=== PATIENT | male | born 1970 | race Caucasian/White ===

== ENCOUNTER 2022-12-13 22:04 | Emergency (ER) | payer OTHER, SELFPAY ==
[2022-12-13 22:06] VITALS: BP 148/92; PULSE 76; RESP 18; TEMP 36.6; O2SAT 97; BMI 29.0
--- NOTE | 2022-12-13 22:17 | PC.NURSE ---
patient states yesterday he woke up with some right sided low back discomfort and at the time pain was bearable so he went to work. states while at work pain became worse. then today he was at home and pain began to travel down his right leg into thigh. states he has a history of sciatica and this feels similar to previous episodes. denies any injury or trauma to area. tried heat, OTC cream, and tylenol at home without relief. pain worsens with movement.
--- NOTE | 2022-12-13 22:31 | ED_ITS ---
HPI - Back Pain/Injury General Chief Complaint: Back Pain/Injury Stated Complaint: LOWER BACK, EXTREMITY PAIN Time Seen by Provider: 12/13/22 22:18 Source: patient Mode of arrival: walk-in Limitations: no limitations History of Present Illness HPI Narrative: presents complaining of right lower back pain radiating into his right hamstring thigh. No leg weakness. No loss of control or bowel or bladder. No urinary s ymptoms or fever. difficult to find a comfortable position MD elicited complaint: Reports back pain Related Data Home Medications Medication Instructions Recorded Confirmed levothyroxine 200 mcg tablet 200 mcg PO DAILY 12/13/22 12/13/22 topiramate 100 mg tablet 100 mg PO DAILY 12/13/22 12/13/22 Allergies Allergy/AdvReac Type Severity Reaction Status Date / Time No Known Drug Allergies Allergy Verified 12/13/22 22:12 Review of Systems ROS Status of ROS 10 or more systems reviewed and unremarkable except as noted in history and below Exam Constitutional Vital Signs, click to edit/add: Last Vital Signs Temp 97.8 F 12/13/22 22:06 Pulse 70 12/14/22 00:02 Resp 16 12/13/22 23:23 BP 148/92 H 12/13/22 22:06 Pulse Ox 99 12/14/22 00:02 O2 Del Method Room Air 12/13/22 22:06 Common normals: average body habitus, oriented x3, healthy appearing, alert and well nourished [facility] [place] Common normals: normocephalic and head/scalp atraumatic Eye Common normals: EOMs intact bilaterally, conjunctivae normal and no scleral icterus Respiratory Common normals: normal respiratory effort, no retractions, no use of accessory muscles and clear to auscultation bilaterally Cardio Common normals: regular rate, regular rhythm, S1 normal heart sound and S2 normal heart sound Back & Pelvis Other: tenderness along the right side of his lower lumbar spine. L5. The spine itself is nontender Neuro Common normals: oriented x3, CN's II-XII intact bilaterally, moves all extremities, no focal motor deficits and no sensory deficits noted Psych Appearance: grossly normal Course Vital Signs Vital signs: Vital Signs Temperature 97.8 F 12/13/22 22:06 Pulse Rate 76 12/13/22 22:06 Respiratory Rate 18 12/13/22 22:06 Blood Pressure 148/92 H 12/13/22 22:06 Pulse Oximetry 97 12/13/22 22:06 Oxygen Delivery Method Room Air 12/13/22 22:06 Temperature 97.8 F 12/13/22 22:06 Pulse Rate 70 12/14/22 00:02 Respiratory Rate 16 12/13/22 23:23 Blood Pressure 148/92 H 12/13/22 22:06 Pulse Oximetry 99 12/14/22 00:02 Oxygen Delivery Method Room Air 12/13/22 22:06 MDM - Back Pain/Injury MDM Narrative Medical decision making narrative: patient presents with right lower back pain radiating into his thigh. No lower ext. weakness. Inflammatory markers are normal. no fever. Medicated in the department with solumedrol and fentanyl and pain improved prior to discharge. Discharge home with a prescription of prednisone and advised to follow up with his doctor Lab Data Labs: Lab Results 12/13/22 Range/Units 22:46 WBC 11.8 H (4.0-11.0) 10^3/uL RBC 5.00 (4.70-6.10) 10^6/uL Hgb 14.0 (14.0-18.0) g/dL Hct 42.2 (42.0-54.0) % MCV 84.4 (80.0-94.0) fL MCH 28.0 (25.9-34.0) pg MCHC 33.2 (29.9-35.2) g/dL RDW 13.8 (11.0-15.0) % Plt Count 271 (150-450) 10^3/uL MPV 10.2 (9.5-13.5) fL Neut % (Auto) 62.6 (43.0-75.0) % Lymph % (Auto) 25.8 (20.5-60.0) % [place] % (Auto) 7.5 (1.7-12.0) % Eos % (Auto) 3.0 (0.9-7.0) % Baso % (Auto) 0.7 (0.2-2.0) % Neut # (Auto) 7.4 H (1.4-6.5) 10^3/uL Lymph # (Auto) 3.1 (1.2-3.8) 10^3/uL [place] # (Auto) 0.9 H (0.3-0.8) 10^3/uL Eos # (Auto) 0.4 (0.0-0.7) 10^3/uL Baso # (Auto) 0.1 (0.0-0.1) 10^3/uL Abs Immat Gran (auto) 0.05 H (0.00-0.03) 10^3/uL Imm/Tot Granulo (auto) 0.4 (0.0-0.5) % ESR 15 (<=20) mm/hr Sodium 141 (136-145) mmol/L Potassium 3.7 (3.5-5.1) mmol/L Chloride 107 (98-107) mmol/L Carbon Dioxide 22.7 (21.0-32.0) mmol/L Anion Gap 15.0 BUN 18.0 (7.0-18.0) mg/dL Creatinine 1.13 (0.70-1.30) mg/dL Est GFR ( Amer) >60 (>=60) Est GFR (Non-Af Amer) >60 (>=60) BUN/Creatinine Ratio 15.9 Glucose 103 (74-106) mg/dL Calcium 8.6 (8.5-10.1) mg/dL C-Reactive Protein <1.0 (<=1.0) mg/dL Discharge Plan Discharge Chief Complaint: Back Pain/Injury Clinical Impression: Sciatic nerve pain Prescriptions / Home Meds: No Action topiramate 100 mg tablet 100 mg PO DAILY levothyroxine 200 mcg tablet 200 mcg PO DAILY Instructions: Sciatica (ED) Additional Instructions: follow up with your family doctor in the next couple of days Stand Alone Forms: Portal Instructions Referrals: SALMA MOHR [Primary Care Provider] - 1 week
[2022-12-13] MEDS: METHYLPREDNISOLONE SOD SUCC PF 125 MG/2 ML VIAL IVP (22:49)
[2022-12-13 22:50] VITALS: PULSE 72; O2SAT 97
[2022-12-13] MEDS: FENTANYL CITRATE/PF 100 MCG/2 ML VIAL 50 MCG IV (22:50)
[2022-12-13 22:55] LABS: Basophils Absolute Auto 0.1 10^3/uL (0.0-0.1); Basophils Percent Auto 0.7 % (0.2-2.0); Eosinophils Absolute Auto 0.4 10^3/uL (0.0-0.7); Hematocrit 42.2 % (42.0-54.0); Immature Granulocytes Abs Auto 0.05 10^3/uL (0.00-0.03); Immature Granulocytes Pct Auto 0.4 % (0.0-0.5); Lymphocytes Absolute Auto 3.1 10^3/uL (1.2-3.8); Lymphocytes Percent Auto 25.8 % (20.5-60.0); Mean Corpuscular HGB Conc 33.2 g/dL (29.9-35.2); Mean Corpuscular Volume 84.4 fL (80.0-94.0); Mean Platelet Volume 10.2 fL (9.5-13.5); Monocytes Absolute Auto 0.9 10^3/uL (0.3-0.8); Monocytes Percent Auto 7.5 % (1.7-12.0); Neutrophils Absolute Auto 7.4 10^3/uL (1.4-6.5); Neutrophils Percent Auto 62.6 % (43.0-75.0); Platelet Count 271 10^3/uL (150-450); Red Cell Distribution Width 13.8 % (11.0-15.0); White Blood Count 11.8 10^3/uL (4.0-11.0)
[2022-12-13 23:04] LABS: Erythrocyte Sedimentation Rate 15 mm/hr (<=20)
[2022-12-13 23:05] LABS: BUN Creatinine Ratio 15.9; C Reactive Protein <1.0 mg/dL (<=1.0); Calcium 8.6 mg/dL (8.5-10.1); Carbon Dioxide 22.7 mmol/L (21.0-32.0); Chloride 107 mmol/L (98-107); Estimated GFR (African America >60 (>=60); Estimated GFR (Non-African Ame >60 (>=60); Glucose 103 mg/dL (74-106); Potassium 3.7 mmol/L (3.5-5.1); Sodium 141 mmol/L (136-145)
[2022-12-13 23:23] VITALS: PULSE 62; RESP 16; O2SAT 96
[2022-12-14 00:02] VITALS: PULSE 70; O2SAT 99
[2022-12-14] MEDS: FENTANYL CITRATE/PF 100 MCG/2 ML VIAL 50 MCG IV (00:21)
[2022-12-14] MEDS: HYDROCODONE/ACETAMINOPHEN 5-325 MG TABLET 4 TAB PO (01:26)
[2022-12-14 01:32] VITALS: PULSE 70; RESP 16; O2SAT 98
== END 2022-12-14 01:34 | disposition home or self-care (01) ==
PROVIDERS: Emergency Provider Internal Medicine; PCP Family Medicine
DX: M54.41 Lumbago with sciatica, right side (principal); Z79.899 Other long term (current) drug therapy; Z79.890 Hormone replacement therapy
CPT/HCPCS: 36415; 80048; 85025; 85652; 86140; 96374; 96375; 96376; 99284; J2930

== ENCOUNTER 2023-03-10 10:54 | Outpatient (OUT) | payer OTHER, SELFPAY ==
--- NOTE | 2023-03-10 | US_ITS ---
The [place] [id number] Patient Name: LUIS OSPINA MRN: [id number] date: 1970 Sex: M Assigned Patient Location: US Current Patient Location: Accession/Order Number: [id number] Exam Date: 03/10/2023 11:15 Report Date: 03/11/2023 17:26 At the request of: SHAIKH LOLI Procedure: US scrotum US scrotum, 03/10/2023 11:15 AM EDT INDICATION: LEFT INGUINAL HERNIA KN0.90 COMPARISON: There is no appropriate prior study for comparison. FINDINGS: The testicles are normal in size and echotexture for age measuring 4.8 x 2.3 x 3.3 cm on the right and 4 x 2.3 x 3 cm on the left. No abnormal intratesticular hypervascular lesion is noted. Normal color and spectral Doppler in arteries and veins are noted. Mild right hydrocele is noted. Left epididymal cyst within the head of epididymis is noted measuring 1.1 x 0.9 x 0.9 cm. No abnormality of the right epididymis. There is a reversible left inguinal hernia measuring approximately 3.4 x 1 x 1.8 cm. There is enlargement of the inguinal hernia containing mesenteric fat and possible bowel with Valsalva maneuver. No incarceration is noted. US/US scrotum IMPRESSION: [Left epididymal cyst. Otherwise, no abnormality of testicles is noted. Reversible left inguinal hernia containing mesenteric fat and possible bowel with Valsalva maneuver. Electronically authenticated by: KASIE GRIFFIN Date: 03/11/2023 17:26
== END 2023-03-10 10:55 | disposition home or self-care (01) ==
LOC: US 10:54
PROVIDERS: PCP Family Medicine; Visit Provider Internal Medicine
DX: K40.90 Unilateral inguinal hernia, without obstruction or gangrene, not specified as recurrent (principal); N50.3 Cyst of epididymis
CPT/HCPCS: 76870

== ENCOUNTER 2023-03-25 16:22 | Emergency (ER) | payer OTHER, SELFPAY ==
[2023-03-25] VITALS (24 sets, daily range): BP systolic 101–154; BP diastolic 73–110; PULSE 62–87; RESP 9–25; TEMP 36.6; O2SAT 94–100; BMI 32.9
--- NOTE | 2023-03-25 16:32 | CT_ITS ---
The [address] [address] Patient Name: LUIS OSPINA MRN: [id number] date: 1970 Sex: M Assigned Patient Location: ED.MAIN Current Patient Location: Accession/Order Number: [id number] Exam Date: 03/25/2023 16:45 Report Date: 03/25/2023 17:41 At the request of: EVGENY DONNELLY Procedure: CT stroke head/brain wo con EXAMINATION: CT stroke head/brain wo con TECHNIQUE: Axial CT images were obtained through the brain. Sagittal and coronal reformatted images were also obtained. Dose reduction techniques were achieved by using automated exposure control and/or adjustment of mA and/or kV according to patient size and/or use of iterative reconstruction technique. HISTORY: left arm feels cold COMPARISON: MRI 07/06/2020 FINDINGS: Intracranial Bleed: No evidence for acute intracranial bleed. Intracranial Mass: No evidence for mass lesion. No mass effect or midline shift. Extra-axial spaces: The ventricular system is normal caliber. White/Lr Matter: No acute cortical infarct. No acute white matter abnormality. There is severe focal mineralization within the basal ganglia bilaterally. Heterogeneous high attenuation within the left frontal white matter also likely relates to abnormal mineralization. Chronic findings from lesion medially within the left occipital lobe. Skull/Scalp: No evidence for skull fracture or lesion. Orbits and sinuses: The orbits appear unremarkable. The visualized paranasal sinuses are clear. CT/CT stroke head/brain wo con IMPRESSION: No acute intracranial pathology. Electronically authenticated by: ARACELI HAYNES Date: 03/25/2023 17:41
--- NOTE | 2023-03-25 16:33 | CT_ITS ---
The [address] [address] Patient Name: LUIS OSPINA MRN: [id number] date: 1970 Sex: M Assigned Patient Location: ER Current Patient Location: ER Accession/Order Number: [id number] Exam Date: 03/25/2023 16:45 Report Date: 03/25/2023 17:17 At the request of: EVGENY DONNELLY Procedure: CT cervical spine wo con EXAM: CT cervical spine wo con HISTORY: left arm feels cold COMPARISON: None. TECHNIQUE: Axial CT imaging is performed. Sagittal and coronal reformatted/reconstructed sequences were additionally performed. FINDINGS: Age-indeterminate straightening of the normal cervical lordosis from the skull base through C5. Vertebral body heights and alignments exhibit no fracture or listhesis. The dens and lateral masses of C1 are symmetric. Multilevel intervertebral disc space narrowing, endplate, uncovertebral and facet arthrosis, most pronounced at C5-C6. No prevertebral soft tissue edema. The visualized osseous skull base, mastoid air cells, airway, thoracic inlet and pulmonary apices exhibit no gross acute abnormality CT/CT cervical spine wo con IMPRESSION: Age-indeterminate straightening of the upper cervical lordosis. Electronically authenticated by: FAROOQ CASTELLON Date: 03/25/2023 17:17
--- NOTE | 2023-03-25 16:37 | ECG_ITS ---
The [facility] Test Date: 2023-03-25 Pat Name: LUIS OSPINA Department: Room: - Gender: Male [employer]: : 1970 Requested By: SHAIKH LOLI Order Number: [id number] Reading MD: JOE DRISCOLL Measurements Intervals [place] Rate: 71 P: 69 AR: 174 QRS: 61 QRSD: 114 T: 51 QT: 384 QTc: 406 Interpretive Statements 1100 Sinus rhythm 2320 Nonspecific intraventricular conduction delay 7300 Indeterminate axis 9130 borderline ECG No previous ECG available for comparison Electronically Signed On 03-27-2023 7:06:44 EST by JOE DRISCOLL
--- NOTE | 2023-03-25 16:38 | XR_ITS ---
The [place] [id number] Patient Name: LUIS OSPINA MRN: [id number] date: 1970 Sex: M Assigned Patient Location: ER Current Patient Location: ER Accession/Order Number: [id number] Exam Date: 03/25/2023 16:42 Report Date: 03/25/2023 17:14 At the request of: EVGENY DONNELLY Procedure: XR chest 1V EXAMINATION: XR chest 1V HISTORY: Left arm feels cold COMPARISON: None. TECHNIQUE: Portable chest FINDINGS: The lung parenchyma is free of consolidation or infiltrate. No pneumothorax or pleural effusion. The cardiac, mediastinal and hilar contours are normal. The visualized osseous structures exhibit no gross abnormality. XR/XR chest 1V IMPRESSION: No acute cardiopulmonary abnormality. Electronically authenticated by: FAROOQ CASTELLON Date: 03/25/2023 17:14
--- NOTE | 2023-03-25 16:39 | ED.GENADUL1 ---
HPI - General Adult General Chief complaint: Neuro Symptoms/Deficit Stated complaint: L SIDE PAIN Time Seen by Provider: 03/25/23 16:27 Source: patient Limitations: no limitations History of Present Illness HPI narrative: 53-year-old male presents because his left arm feels cold. He was sitting drinking coffee three hours ago when this started. It has been continuous since it started. He thought he felt some symptoms in his left leg but doesn't have them now and he is not certain that he ever had symptoms in the left leg. No headache or weakness in his arm. No recent unusual activity. No chest pain or shoortness of breath. Related Data Home Medications Medication Instructions Recorded Confirmed levothyroxine 200 mcg tablet 200 mcg PO DAILY 12/13/22 03/25/23 topiramate 100 mg tablet 100 mg PO DAILY 12/13/22 03/25/23 Allergies Allergy/AdvReac Type Severity Reaction Status Date / Time No Known Drug Allergies Allergy Verified 12/13/22 22:12 Review of Systems ROS Narrative A ten point review of systems is negative except as noted above. Exam Narrative Exam Narrative: Nurses note and vital signs reviewed and patient is not hypoxic. General: The patient appears well and in no apparent distress. Patient is resting comfortably on cart. Skin: Warm, dry, no pallor noted. There is no rash noted. Head: Normocephalic, atraumatic Eye: Normal conjunctiva, no drainage Ears, Nose, Mouth, and Throat: oral mucosa is moist. Nares patent. Cardiovascular: Regular Rate and Rhythm Respiratory: Patient is in no distress, no accessory muscle use, lungs are clear to auscultation, no wheezing, rales or rhonchi Back: non-tender GI: Normal bowel sounds, no tenderness to palpation, no masses appreciated. No rebound, guarding, or rigidity noted. Musculoskeletal: The patient has no evidence of calf tenderness, no pitting edema, symmetrical pulses noted bilaterally Neurological: A&O x4, normal speech; cranial nerves II through XII are intact; upper and lower extremity strength is five out five and symmetric including hand grasp, biceps, and triceps strength. Sensation is intact on physical examination, symmetric in his hands and forearms. It is no skin discoloration or coolness sensation to his arms. Radial pulses are 2+ bilaterally. Psychiatric: Cooperative NIH score is zero Constitutional Vital Signs, click to edit/add: Last Vital Signs Temp 97.8 F 03/25/23 16:33 Pulse 63 03/25/23 18:20 Resp 14 03/25/23 18:20 BP 101/73 03/25/23 18:00 Pulse Ox 99 03/25/23 18:20 Course Vital Signs Vital signs: Vital Signs Pulse Rate 78 03/25/23 16:31 Respiratory Rate 25 H 03/25/23 16:31 Pulse Oximetry 99 03/25/23 16:31 Temperature 97.8 F 03/25/23 16:33 Pulse Rate 63 03/25/23 18:20 Respiratory Rate 14 03/25/23 18:20 Blood Pressure 101/73 03/25/23 18:00 Pulse Oximetry 99 03/25/23 18:20 Medical Decision Making MDM Narrative Medical decision making narrative: CTs and CTAs are essentially negative. The possibility of CVA cannot be ruled out. The patient is not a TPA candidate. His NIH score is zero. the patient is signed out to Dr. Moore at change of shift. Differential Diagnosis Differential Diagnosis: cervical radiculopathy, CVA Lab Data Lab results reviewed: Yes I reviewed the patient's lab results Labs: Lab Results 03/25/23 Range/Units 16:35 WBC 12.9 H (4.0-11.0) 10^3/uL RBC 5.09 (4.70-6.10) 10^6/uL Hgb 14.6 (14.0-18.0) g/dL Hct 44.7 (42.0-54.0) % MCV 87.8 (80.0-94.0) fL MCH 28.7 (25.9-34.0) pg MCHC 32.7 (29.9-35.2) g/dL RDW 13.1 (11.0-15.0) % Plt Count 252 (150-450) 10^3/uL MPV 10.6 (9.5-13.5) fL Neut % (Auto) 67.2 (43.0-75.0) % Lymph % (Auto) 22.6 (20.5-60.0) % [place] % (Auto) 6.3 (1.7-12.0) % Eos % (Auto) 3.1 (0.9-7.0) % Baso % (Auto) 0.6 (0.2-2.0) % Neut # (Auto) 8.7 H (1.4-6.5) 10^3/uL Lymph # (Auto) 2.9 (1.2-3.8) 10^3/uL [place] # (Auto) 0.8 (0.3-0.8) 10^3/uL Eos # (Auto) 0.4 (0.0-0.7) 10^3/uL Baso # (Auto) 0.1 (0.0-0.1) 10^3/uL Abs Immat Gran (auto) 0.03 (0.00-0.03) 10^3/uL Imm/Tot Granulo (auto) 0.2 (0.0-0.5) % PT 10.3 (9.0-11.6) sec INR 0.97 APTT 26.8 (22.3-36.2) sec Sodium 139 (136-145) mmol/L Potassium 3.6 (3.5-5.1) mmol/L Chloride 105 (98-107) mmol/L Carbon Dioxide 24.8 (21.0-32.0) mmol/L Anion Gap 12.8 BUN 15.0 (7.0-18.0) mg/dL Creatinine 1.14 (0.70-1.30) mg/dL Est GFR ( Amer) >60 (>=60) Est GFR (Non-Af Amer) >60 (>=60) BUN/Creatinine Ratio 13.2 Glucose 106 (74-106) mg/dL Calcium 9.0 (8.5-10.1) mg/dL Troponin I High Sens 9.0 (4.0-76.1) pg/mL Imaging Data CT scan - head: Radiologist's impression: Procedure: XR chest 1V EXAMINATION: XR chest 1V HISTORY: Left arm feels cold COMPARISON: None. TECHNIQUE: Portable chest FINDINGS: The lung parenchyma is free of consolidation or infiltrate. No pneumothorax or pleural effusion. The cardiac, mediastinal and hilar contours are normal. The visualized osseous structures exhibit no gross abnormality. IMPRESSION: No acute cardiopulmonary abnormality. Electronically authenticated by: FAROOQ CASTELLON Date: 03/25/2023 17:14 Procedure: CT stroke head/brain wo con Begin Addendum #1 An additional impression statement should read: Bilateral basal ganglia mineralization. Calcifications in the left frontal white matter related to mineralization and possibly an underlying developmental venous anomaly. Original Report EXAMINATION: CT stroke head/brain wo con TECHNIQUE: Axial CT images were obtained through the brain. Sagittal and coronal reformatted images were also obtained. Dose reduction techniques were achieved by using automated exposure control and/or adjustment of mA and/or kV according to patient size and/or use of iterative reconstruction technique. HISTORY: left arm feels cold COMPARISON: MRI 07/06/2020 FINDINGS: Intracranial Bleed: No evidence for acute intracranial bleed. Intracranial Mass: No evidence for mass lesion. No mass effect or midline shift. Extra-axial spaces: The ventricular system is normal caliber. White/Lr Matter: No acute cortical infarct. No acute white matter abnormality. There is severe focal mineralization within the basal ganglia bilaterally. Heterogeneous high attenuation within the left frontal white matter also likely relates to abnormal mineralization. Chronic findings from lesion medially within the left occipital lobe. Skull/Scalp: No evidence for skull fracture or lesion. Orbits and sinuses: The orbits appear unremarkable. The visualized paranasal sinuses are clear. IMPRESSION: No acute intracranial pathology. Electronically authenticated by: ARACELI HAYNES Date: 03/25/2023 17:53 Procedure: CT cervical spine wo con EXAM: CT cervical spine wo con HISTORY: left arm feels cold COMPARISON: None. TECHNIQUE: Axial CT imaging is performed. Sagittal and coronal reformatted/reconstructed sequences were additionally performed. FINDINGS: Age-indeterminate straightening of the normal cervical lordosis from the skull base through C5. Vertebral body heights and alignments exhibit no fracture or listhesis. The dens and lateral masses of C1 are symmetric. Multilevel intervertebral disc space narrowing, endplate, uncovertebral and facet arthrosis, most pronounced at C5-C6. No prevertebral soft tissue edema. The visualized osseous skull base, mastoid air cells, airway, thoracic inlet and pulmonary apices exhibit no gross acute abnormality IMPRESSION: Age-indeterminate straightening of the upper cervical lordosis. Electronically authenticated by: FAROOQ CASTELLON Date: 03/25/2023 17:17 Procedure: CT angio neck EXAM: CT angio head, CT angio neck HISTORY: left arm feels cold COMPARISON: Same day head CT. TECHNIQUE: HEAD and NECK CTA: During rapid bolus intravenous injection of nonionic contrast material, axial images were obtained using thin collimation multidetector helical technique from the base of the skull through the [place]. This CT angiogram data was reconstructed at thin intervals with mild overlap. 3-D rapid angiographic images obtained. Maximum intensity projection images obtained with axial, coronal and sagittal views FINDINGS: Head CTA demonstrates no aneurysm or stenosis of the major intracranial arteries. There is no abnormal vascular enhancement or evidence for a vascular malformation. The areas of mineralization within the brain parenchyma on the noncontrast head CT are not as well seen, and do not appear to enhance. Neck CTA demonstrates no stenosis of the major cervical arteries. The origins of the great vessels from the aortic arch are patent. The normal distal right internal carotid artery measures 5 mm. The normal distal left internal carotid artery measures 5 mm. No mass is noted within the visualized portions of the cervical soft tissues or lung apices. IMPRESSION: 1. Head CTA demonstrates no aneurysm or stenosis of the major intracranial arteries. 2. Neck CTA demonstrates no stenosis of the major cervical arteries. Normal appearance of the great vessels, including the left subclavian artery. Electronically authenticated by: MATIAS HUMPHREYS Date: 03/25/2023 18:50 Procedure: CT angio head EXAM: CT angio head, CT angio neck HISTORY: left arm feels cold COMPARISON: Same day head CT. TECHNIQUE: HEAD and NECK CTA: During rapid bolus intravenous injection of nonionic contrast material, axial images were obtained using thin collimation multidetector helical technique from the base of the skull through the [place]. This CT angiogram data was reconstructed at thin intervals with mild overlap. 3-D rapid angiographic images obtained. Maximum intensity projection images obtained with axial, coronal and sagittal views FINDINGS: Head CTA demonstrates no aneurysm or stenosis of the major intracranial arteries. There is no abnormal vascular enhancement or evidence for a vascular malformation. The areas of mineralization within the brain parenchyma on the noncontrast head CT are not as well seen, and do not appear to enhance. Neck CTA demonstrates no stenosis of the major cervical arteries. The origins of the great vessels from the aortic arch are patent. The normal distal right internal carotid artery measures 5 mm. The normal distal left internal carotid artery measures 5 mm. No mass is noted within the visualized portions of the cervical soft tissues or lung apices. IMPRESSION: 1. Head CTA demonstrates no aneurysm or stenosis of the major intracranial arteries. 2. Neck CTA demonstrates no stenosis of the major cervical arteries. Normal appearance of the great vessels, including the left subclavian artery. Electronically authenticated by: MATIAS HUMPHREYS Date: 03/25/2023 18:50 Discharge Plan Discharge Patient Disposition: Still a Patient
[2023-03-25 17:03] LABS: Basophils Absolute Auto 0.1 10^3/uL (0.0-0.1); Basophils Percent Auto 0.6 % (0.2-2.0); Eosinophils Absolute Auto 0.4 10^3/uL (0.0-0.7); Eosinophils Percent Auto 3.1 % (0.9-7.0); Hematocrit 44.7 % (42.0-54.0); Hemoglobin 14.6 g/dL (14.0-18.0); Immature Granulocytes Abs Auto 0.03 10^3/uL (0.00-0.03); Immature Granulocytes Pct Auto 0.2 % (0.0-0.5); Lymphocytes Absolute Auto 2.9 10^3/uL (1.2-3.8); Lymphocytes Percent Auto 22.6 % (20.5-60.0); Mean Corpuscular HGB Conc 32.7 g/dL (29.9-35.2); Mean Corpuscular Hemoglobin 28.7 pg (25.9-34.0); Mean Corpuscular Volume 87.8 fL (80.0-94.0); Mean Platelet Volume 10.6 fL (9.5-13.5); Monocytes Absolute Auto 0.8 10^3/uL (0.3-0.8); Monocytes Percent Auto 6.3 % (1.7-12.0); Neutrophils Absolute Auto 8.7 10^3/uL (1.4-6.5); Neutrophils Percent Auto 67.2 % (43.0-75.0); Platelet Count 252 10^3/uL (150-450); Red Blood Count 5.09 10^6/uL (4.70-6.10); Red Cell Distribution Width 13.1 % (11.0-15.0); White Blood Count 12.9 10^3/uL (4.0-11.0)
[2023-03-25 17:10] LABS: Anion Gap 12.8; BUN Creatinine Ratio 13.2; Carbon Dioxide 24.8 mmol/L (21.0-32.0); Chloride 105 mmol/L (98-107); Estimated GFR (African America >60 (>=60); Estimated GFR (Non-African Ame >60 (>=60); Glucose 106 mg/dL (74-106); Potassium 3.6 mmol/L (3.5-5.1); Sodium 139 mmol/L (136-145)
[2023-03-25 17:17] LABS: INR 0.97; Partial Thromboplastin Time 26.8 sec (22.3-36.2); Prothrombin Time 10.3 sec (9.0-11.6)
--- NOTE | 2023-03-25 17:50 | CT_ITS ---
The [address] [address] Patient Name: LUIS OSPINA MRN: [id number] date: 1970 Sex: M Assigned Patient Location: ER Current Patient Location: Accession/Order Number: [id number] Exam Date: 03/25/2023 18:08 Report Date: 03/25/2023 18:50 At the request of: EVGENY DONNELLY Procedure: CT angio neck EXAM: CT angio head, CT angio neck HISTORY: left arm feels cold COMPARISON: Same day head CT. TECHNIQUE: HEAD and NECK CTA: During rapid bolus intravenous injection of nonionic contrast material, axial images were obtained using thin collimation multidetector helical technique from the base of the skull through the [place]. This CT angiogram data was reconstructed at thin intervals with mild overlap. 3-D rapid angiographic images obtained. Maximum intensity projection images obtained with axial, coronal and sagittal views FINDINGS: Head CTA demonstrates no aneurysm or stenosis of the major intracranial arteries. There is no abnormal vascular enhancement or evidence for a vascular malformation. The areas of mineralization within the brain parenchyma on the noncontrast head CT are not as well seen, and do not appear to enhance. Neck CTA demonstrates no stenosis of the major cervical arteries. The origins of the great vessels from the aortic arch are patent. The normal distal right internal carotid artery measures 5 mm. The normal distal left internal carotid artery measures 5 mm. No mass is noted within the visualized portions of the cervical soft tissues or lung apices. CT/CT angio neck IMPRESSION: 1. Head CTA demonstrates no aneurysm or stenosis of the major intracranial arteries. 2. Neck CTA demonstrates no stenosis of the major cervical arteries. Normal appearance of the great vessels, including the left subclavian artery. Electronically authenticated by: AMTIAS HUMPHREYS Date: 03/25/2023 18:50
--- NOTE | 2023-03-25 17:50 | CT_ITS ---
The [address] [address] Patient Name: LUIS OSPINA MRN: [id number] date: 1970 Sex: M Assigned Patient Location: ER Current Patient Location: Accession/Order Number: [id number] Exam Date: 03/25/2023 18:08 Report Date: 03/25/2023 18:50 At the request of: EVGENY DONNELLY Procedure: CT angio head EXAM: CT angio head, CT angio neck HISTORY: left arm feels cold COMPARISON: Same day head CT. TECHNIQUE: HEAD and NECK CTA: During rapid bolus intravenous injection of nonionic contrast material, axial images were obtained using thin collimation multidetector helical technique from the base of the skull through the morongo of Méndez. This CT angiogram data was reconstructed at thin intervals with mild overlap. 3-D rapid angiographic images obtained. Maximum intensity projection images obtained with axial, coronal and sagittal views FINDINGS: Head CTA demonstrates no aneurysm or stenosis of the major intracranial arteries. There is no abnormal vascular enhancement or evidence for a vascular malformation. The areas of mineralization within the brain parenchyma on the noncontrast head CT are not as well seen, and do not appear to enhance. Neck CTA demonstrates no stenosis of the major cervical arteries. The origins of the great vessels from the aortic arch are patent. The normal distal right internal carotid artery measures 5 mm. The normal distal left internal carotid artery measures 5 mm. No mass is noted within the visualized portions of the cervical soft tissues or lung apices. CT/CT angio head IMPRESSION: 1. Head CTA demonstrates no aneurysm or stenosis of the major intracranial arteries. 2. Neck CTA demonstrates no stenosis of the major cervical arteries. Normal appearance of the great vessels, including the left subclavian artery. Electronically authenticated by: MATIAS HUMPHREYS Date: 03/25/2023 18:50
--- NOTE | 2023-03-25 19:29 | PC.NURSE ---
pt alert and appropriate, speech and moving extremities normal. no facial droop and updated on plan
== END 2023-03-25 20:36 | disposition left against medical advice (07) ==
PROVIDERS: Emergency Medicine; Emergency Provider Internal Medicine; PCP Internal Medicine
DX: G45.9 Transient cerebral ischemic attack, unspecified (principal); Z53.29 Procedure and treatment not carried out because of patient's decision for other reasons; Z79.899 Other long term (current) drug therapy; Z79.890 Hormone replacement therapy
CPT/HCPCS: 36415; 70450; 70496; 70498; 71045; 72125; 80048; 84484; 85025; 85610; 85730; 93005; 99285; Q9967

== ENCOUNTER 2023-04-06 15:35 | Outpatient (OUT) | payer OTHER, SELFPAY ==
[2023-04-06 16:25] LABS: Free T4 1.27 ng/dL (0.76-1.46)
[2023-04-06 16:33] LABS: Free T3 3.33 pg/mL (2.18-3.98); Thyroid Stimulating Hormone 0.857 uIU/mL (0.358-3.740)
== END 2023-04-06 15:36 | disposition home or self-care (01) ==
LOC: LAB 15:36
PROVIDERS: PCP Internal Medicine; Visit Provider Internal Medicine
DX: E03.9 Hypothyroidism, unspecified (principal)
CPT/HCPCS: 36415; 84436; 84439; 84443; 84481

== ENCOUNTER 2023-05-08 09:46 | Outpatient (OUT) | payer OTHER, SELFPAY ==
--- OUTSIDE RECORDS SUMMARY | 2023-05-08 09:50 | XMS_ITS | CCD ---
Author Name Unknown Address [address] [place] [address] Organization [facility] Care Team Providers Care Video Photographer Name Role Phone HOUSE, DR MARSH Primary Care Unavailable MARKER ., DR CAIN Attending Unavailable MARKER ., DR CAIN Consulting Unavailable MARKER ., DR CAIN Admitting Unavailable Ivy COHEN, Tato Dixon Attending Unavailable SHAIKH FRITZ Primary Care Physician Binu VARNER Attending Unavailable Allergies Allergy Classification Reported Allergen(s) Allergy Type Date of Onset Reaction(s) Facility (1 source) egg extract Drug Allergy [address] [facility] Repository (2 sources) Egg; Translations: [Eggs] Propensity to adverse reactions to food We[place] (disorder) [facility] [place] (1 source) No Known Medication Allergies; Translations: [No Known Medication Allergies] Propensity to adverse reactions (disorder) [facility] Repository NEGATED: Highlighted row has been ruled out! (1 source) Drug allergy [facility] [place] Medications Current Medications Medication Drug Class(es) Dates Sig (Normalized) Sig (Original) gabapentin 300 mg oral capsule (1 source) Anti-epileptic Agent Start: 03-21-2023 gabapentin 300 mg Cap as diretced, Refills(s) 0 Start Date: 03/21/23 Status: Ordered levothyroxine sodium 0.2 mg oral tablet (1 source) l-Thyroxine Start: 03-21-2023 take 1 tablet by mouth once daily levothyroxine 200 mcg (0.2 mg) Tab 200 mcg = 1 tab(s), Oral, Daily, Refills(s) 0 Start Date: 03/21/23 Status: Ordered Problems Problem Classification Problem Date Documented Date Episodic/Chronic Abdominal hernia (1 source) Recurrent inguinal hernia; Translations: [Unilateral inguinal hernia, without obstruction or gangrene, recurrent] Onset: 11-29-2023 Episodic Anxiety disorders (1 source) Mixed anxiety and depressive disorder 03-21-2023 Chronic Headache; including migraine (1 source) Migraine 03-21-2023 Chronic Headache; including migraine (4 sources) Headache; including migraine; Translations: [HEADACHE UNSPECIFIED] Onset: 07-04-2022 Menopausal disorders (1 source) Hormone replacement therapy; Translations: [HORMONE REPLACEMENT THERAPY] Onset: 07-06-2022 Episodic Other aftercare (1 source) Other intermediate (current) drug therapy; Translations: [OTH PRISON CURRENT DRUG THERAPY] Onset: 07-06-2022 Episodic Other nervous system disorders (1 source) Trigeminal neuralgia; Translations: [TRIGEMINAL NEURALGIA] Onset: 07-06-2022 Episodic Other nervous system disorders (1 source) Trigeminal neuralgia 03-21-2023 Episodic Other nutritional; endocrine; and metabolic disorders (1 source) Overweight 03-21-2023 Episodic Other nutritional; endocrine; and metabolic disorders (1 source) Overweight in adulthood with body mass index of 25 or more but less than 30 04-04-2023 Episodic Residual codes; unclassified (1 source) Tobacco user; Translations: [Tobacco use] Onset: 04-04-2023 Episodic Screening and history of mental health and substance abuse codes (1 source) Tobacco use and exposure - finding 04-04-2023 Chronic Substance-related disorders (2 sources) Nicotine dependence, cigarettes, uncomplicated; Translations: [Smoker] Onset: 07-06-2022 03-21-2023 Chronic Thyroid disorders (1 source) Hypothyroidism 03-21-2023 Chronic Unclassified (1 source) Recurrent left inguinal hernia 04-04-2023 Results Test Name Value Interpretation Reference Range Facil ity Consent for Procedure/Surger yon 04-05-2023 Consent for Procedure/Surgery [id number] #1.00TIFF Normal [facility] Facesheeton 04-05-2023 Facesheet [id number] #1.00TIFF Normal [facility] Ambulatory Visit Summaryon 1 06-04-2022 Ambulatory Visit Summary LUIS OSPINA :1970 Visit Date:04/04/2023 Ambulatory Visit Instructions Your Care Team Attending Physician - TELLY COHEN, Binu Aguilar Primary Care Physician - LOLI COHEN, This Is Your Medications List Contact prescribing physician if questions or concerns gabapentin (gabapentin 300 mg Cap) levothyroxine (levothyroxine 200 mcg (0.2 mg) Tab) Procedures Performed Repair of recurrent right inguinal hernia (06/13/2016), Repair of right inguinal hernia (04/14/2014), Excision of cyst, History of lumbar spine surgery, Repair of left inguinal hernia, Rotator cuff repair. Discharge Vitals Heart Rate (Peripheral) 76 Respiratory Rate 16 Blood Pressure 122/78 Height 188 cm Height 74 in Weight 103.7 kg Weight 228.14 lb BMI 29.34 Medications What How Much When Instructions Unchanged gabapentin (gabapentin 300 mg Cap) as diretced Contact prescribing physician if questions or concerns Unchanged levothyroxine (levothyroxine 200 mcg (0.2 mg) Tab) 1 Tablets By Mouth Every day Contact prescribing physician if questions or concerns Medications and Immunizations Administered Not Given influenza virus vaccine, inactivated, Patient Refuses Allergies Eggs (Hives) No Known Medication Allergies Problems Ongoing - Any problem that you are currently receiving treatment for. Anxiety and depression BMI 29.0-29.9,adult Hypothyroidism Migraines Over weight Smoker Trigeminal neuralgia Patient Survey You may receive a survey via text or e-mail asking about your office visit. Please share your experience with us by completing your survey. We appreciate your feedback and thank you for choosing us for your care. Normal [facility] RAD - Ultrasound Reporton RAD - Ultrasound Report [id number] #1.00TIFF Normal [facility] Physician Referralon 023 Physician Referral [id number] #1.00TIFF Normal [facility] Vital Signs Date Time Vital Sign Value Performing Clinician Maynor lees 04-04-2023 15:20-0500 Blood Pressure Location Binu VARNER [facility] [place] 04-04-2023 15:20-0500 Diastolic blood pressure 78 mm[Hg] Binu VARNER [facility] [place] 04-04-2023 15:20-0500 Heart rate 76 /min Binu NILL [facility] [place] 04-04-2023 15:20-0500 Respiratory rate 16 /min Binu NILL [facility] [place] 04-04-2023 15:20-0500 Systolic blood pressure 122 mm[Hg] Binu NILL [facility] [place] Encounters Encounter Date Encounter Type Care Provider Facility Start: 04-04-2023 End: 04-05-2023 ambulatory Binu R NILL Facility: [place] Start: 04-04-2023 End: 04-04-2023 Patient encounter procedure Binu Lauren NILL [facility] Start: 02-26-2023 ambulatory Binu NILL [facility] Start: 12-21-2022 ambulatory Tato Haynes MD Fac ility:[facility] Start: 07-04-2022 End: 07-05-[address] SALMA MOHR Facility:[facility] Procedures Date Procedure Procedure Detail Performing Clinician Start: 06-13-2016 Repair of recurrent right inguinal hernia Binu NILL Start: 04-14-2014 Repair of right ingu inal hernia Binu NILL Excision of cyst Binu NIL L Comment on above: pilar History of operative procedure on lumbar spinal structure Binu NILL Repair of left ingui nal hernia Binu NILL Repair of musculoten dinous cuff of shoulder Binu NILL Immunizations Immunization Date Immunization Notes Care Provider Fa renny 05-03-2021 SARS-CoV-2 (COVID-19 ) mRNA-1273 vaccine Binu NILL [facility] [place] 04-05-2021 SARS-CoV-2 (COVID-19 ) mRNA-1273 vaccine Binu NILL [facility] [place] NEGATED: Highlighted row has not occurred!04-04-2023 influenza virus vaccine, unspecified formulation Binu VARNER [facility] [place] Payers Date Payer Category Payer Unknown [id number] 1970 Unknown [id number] 1959 Private Health Insurance [id number] Social History Date Type Detail Facility Start: 04-04-2023 Tobacco smoking status Heavy t obacco smoker (finding) [facility] Tobacco smoking status Never [facility] Sex Assigned At Male [facility] Functional Status Date Assessment Result Facility 04-04-2023 Functional Status N/A [facility]04-2023 Note Date & Type Note Facility 04-04-2023 Note Chief Complaint consultation for left inguinal hernia HPI Staff 53 year old male presents on consultation from Dr. Fritz for left inguinal hernia. Reports he noted bulge approximately 2 years ago. States bulge is always present. He never tries to reduce this. Denies increase in size since first noted. Over the past one month, reports increase in soreness. Denies nausea, vomiting or bowel changes. Scrotal US completed 03/10 with fat containing left inguinal hernia. Reports previous left inguinal hernia repair when he was 18 years of age. History of Present Illness 53 yo male with h/o hypothyroidism, trigeminal neuralgia, migraines, referred for recurrent left inguinal hernia; patient reports several year h/o bulge, reducible, increasing in size lately, sore at times, no skin changes, no N/V; no bowel changes; had original LIHR over 30 years ago, believes mesh was used; patient has had RIHR x 2; no asa or NSAID use; smokes 1 ppd. Review of Systems PHQ Score Initial Depression Screen Score: 0 SCORE ROS - Provider Constitutional: no fever, no sweats, no weight loss. Eyes: no glasses, no blurred vision, no visual loss. ENMT: no dentures, no hoarseness, no swallowing difficulties, no hearing loss, no ear infection(s), no nose bleeds. Cardiovascular: normal blood pressure, no chest pain, regular heartbeat, no heart murmur. Respiratory: no shortness of breath, no cough, no asthma, no wheezing. Gastrointestinal: no nausea, no vomiting, no diarrhea, no constipation, no blood in stool, no change in bowel habits, mild abdominal pain, no hepatitis. Genitourinary: no kidney stones, no urine infection, no dysuria. Musculoskeletal: no pain, no weakness. Skin: no changing moles, no rash, no skin lumps. Neurologic: no seizures, no epilepsy, no headache. Psychiatric: no emotional or psychiatric problem. Heme/Lymph: no bleeding problems, no anemia, no blood clots, no transfusions. Allergy/Immunologic: no swollen lymph nodes/glands, no IV drug abuse. Other: Additional ROS info: Except as noted in the above Review of Systems and in the History of Present Illness, all other systems have been reviewed and are negative or noncontributory. Physical Exam Vitals & Measurements HR: 76(Peripheral) RR: 16 BP: 122/78 HT: 74 in HT: 188 cm WT: 103.7 kg WT: 228.14 lb BMI: 29.34 HEENT: normal conjunctiva, sclera clear, no scleral icterus, EOM intact, PERRLA, oral mucosa moist without lesions. Neck: trachea midline, no mass, symmetric, no thyromegaly or nodules, no adenopathy Respiratory: lungs CTA, respirations non labored. Cardiovascular: regular rate and rhythm, no murmur, no pedal edema or varicosities. Gastrointestinal: soft, non distended, no tenderness, no masses, reducible left inguinal hernia, no skin changes, mild tenderness; well healed right inguinal scar, no bulge; diastasis recti no, no hepatosplenomegaly; normal bs Lymphatic: no cervical adenopathy, no supraclavicular adenopathy, no inguinal adenopathy. Musculoskeletal: normal gait, digits and nails without infection, nodes, cyanosis, clubbing. Skin: no rashes, no lesions, no ulcers, no subcutaneous nodules, induration. Psychiatric/Neuro: oriented to time, place, person, judgement normal, affect appropriate for age, insight intact, no focal deficits. Tests: l review of old records completed , Discussed surgical options, risks, and possible complications with patient. Assessment/Plan 1. Recurrent left inguinal hernia (K40.91: Unilateral inguinal hernia, without obstruction or gangrene, recurrent) plan left inguinal herniorrhaphy with mesh insertion, informed consent obtained. Ancef 2 gms IV prior to OR TAP block per anesthesia SCDs Ordered: E&M of New Patient Moderate 45-59 Min 69407 2. Tobacco use (Z72.0: Tobacco use) We strongly recommend to quit tobacco use. Cigarette smoking harms nearly every organ of the body, causes many diseases, and reduces the health of smokers in general. Quitting smoking lowers your risk for smoking-related diseases and can add years to your life. We encourage you to visit www.smokefree.gov access to helpful resources including free telephone support. If you decide on prescription treatment to help you quit, your family doctor would be happy to provide these. Ordered: E&M of New Patient Moderate 45-59 Min 94399 Follow-up No qualifying data available Problem List/Past Medical History Ongoing Anxiety and depression BMI 29.0-29.9,adult Hypothyroidism Migraines Over weight Recurrent left inguinal hernia Smoker Tobacco use Trigeminal neuralgia Historical No qualifying data Procedure/Surgical History Repair of recurrent right inguinal hernia (06/13/2016), Repair of right inguinal hernia (04/14/2014), Excision of cyst, History of lumbar spine surgery, Repair of left inguinal hernia, Rotator cuff repair. Medications gabapentin 300 mg Cap levothyroxine 200 mcg (0.2 mg) Tab, 200 mcg= 1 tab(s), Oral, Daily Allergie (more content not included)... [facility] Comment on above: Result Comment: Elec tronically Signed By: TELLY COHEN, Binu Eddy\Date and Time Signed: 04/04/23 17:14 EST Evaluation + Plan note Note Date & Type Note Facility Evaluation + Plan note No data available for this section [facility] [place] [facility] Discharge instructions Note Date & Type Note Facility Hospital Discharge instructions No data available for this section [facility] [place] Progress note Note Date & Type Note Facility Progress note No data available for this section [facility] [place] Summary Purpose Family History No Family History Records FoundNo Family History Records Found No data available for this section No Family History Records Found Advance Directives No Advanced Directives Records FoundNo Advanced Directives Records FoundNo Advanced Directives Records Found Additional Source Comments (unrecognized sect ion and content) No Status Records FoundNo Status Records FoundNo Status Records Found INFORMATION SOURCE (unrecogn ized section and content) DATE CREATED AUTHOR 07/06/2022 [facility] DATE CREATED AUTHOR AUTHOR'S ORGANIZ ATION 12/18/2022 [facility] DATE CREATED AUTHOR AUTHOR'S ORGANIZ ATION 04/07/2023 [facility] Patient Care team informatio n (unrecognized section and content) Personnel Name: MOHIT FRITZ MDIKH Address: Address: [address] [place] [address] FOR RECORDS PERTAINING TO PATIENTS WHO ARE OR HAVE BEEN ENROLLED IN A CHEMICAL DEPENDENCY/SUBSTANCEABUSE PROGRAM, SOME INFORMATION MAY BE OMITTED. This clinical summary was aggregated from multiple sources. Caution should be exercised in using it in the provision of clinical care. This summary normalizes information from multiple sources, and as a consequence, information in this document may materially change the coding, format and clinical context of patient data. In addition, data may be omitted in some cases. CLINICAL DECISIONS SHOULD BE BASED ON THE PRIMARY CLINICAL RECORDS. [facility] provides no warranty or guarantee of the accuracy or completeness of information in this document.
== END 2023-05-08 09:47 | disposition home or self-care (01) ==
LOC: PST 09:46
PROVIDERS: PCP Internal Medicine; Visit Provider Surgery
DX: Z01.818 Encounter for other preprocedural examination (principal); K40.90 Unilateral inguinal hernia, without obstruction or gangrene, not specified as recurrent; K40.91 Unilateral inguinal hernia, without obstruction or gangrene, recurrent

== ENCOUNTER 2023-05-16 07:31 | Day surgery (SDC) | payer OTHER, SELFPAY ==
[2023-05-08 10:27] VITALS: BP 135/75; PULSE 67; RESP 16; TEMP 36.3; O2SAT 96; BMI 28.6
[2023-05-16] VITALS (13 sets, daily range): BP systolic 114–143; BP diastolic 67–108; PULSE 78–96; RESP 9–20; TEMP 36.4; O2SAT 90–96
--- NOTE | 2023-05-16 | OP_ITS ---
OPERATION DATE: 05/16/2023 PREOPERATIVE DIAGNOSIS: Recurrent left inguinal hernia. POSTOPERATIVE DIAGNOSIS: Recurrent direct left inguinal hernia. PROCEDURE: Left inguinal herniorrhaphy with Bard mesh insertion. SURGEON: Binu Gavin M.D. ANESTHESIA: General with laryngeal mask airway as well as left sided TAP block by Dr. Brown. ESTIMATED BLOOD LOSS: Less than 10 mL. INDICATIONS AND CONSENT: Patient is a 53-year-old male with history of previous remote left inguinal hernia repair, now presents with symptomatic recurrence that is reducible. Indications, risks, benefits, alternatives of proceeding with left inguinal herniorrhaphy were explained extensively to the patient, including the risks of bleeding, infection, scarring, pain, nerve or testicular injury, blood clot, pulmonary embolus, heart attack, anesthetic complications, need for further surgery or mesh removal. All of his questions were answered. Informed consent was obtained. PROCEDURE: Patient brought to the operating room, placed in the supine position. General anesthesia was induced. Prior to that, a left sided TAP block had been performed by Dr. Brown. Patient was prepped and draped in the usual sterile fashion. A left groin incision was made in the area of the skin crease and carried down through subcutaneous tissue using sharp dissection as well as electrocautery. Radha?s fascia was divided. There was noted to be extensive scarring. The external oblique which was attenuated was opened along the direction of its fibers, down through the external inguinal ring. A branch of the ilioinguinal nerve was noted to be scarred and in the area where the mesh would lie. So, this was divided and the ends were ligated with 3-0 Vicryl tie. The cord structures were mobilized and retracted with a Seble drain. There was noted to be a large direct hernia with weakness of the entire floor. This was reduced and then the floor was imbricated with interrupted Prolene sutures, 2-0 Prolene. The wound was irrigated. There was good hemostasis. The Bard 5 x 10 cm mesh was trimmed and a keyhole was created. It was then placed in the floor of the inguinal canal and secured circumferentially using interrupted 3-0 Vicryl sutures. The arms were placed around the cord structures and secured. Care was taken to avoid undo tension on the cord structures. Once this was completed, it was irrigated with antibiotic saline. There was good hemostasis. The external oblique was closed with a running 3-0 Vicryl suture. The remaining Exparel solution was injected into the subcutaneous tissue. Radha?s fascia was re-approximated with interrupted 3-0 Monocryl suture. The skin was then closed with a running 4-0 subcuticular Monocryl suture and skin glue. Sterile pressure dressing was applied. Sponge and needle counts were correct x2 per nursing personnel. Patient tolerated procedure well, was sent to recovery room in good condition. CC: Dr. Catrina PAREDES
--- OUTSIDE RECORDS SUMMARY | 2023-05-16 07:34 | XMS_ITS | CCD ---
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 Name Role Phone HOUSE, DR MARSH Primary Care Unavailable MARKER ., DR CAIN Attending Unavailable MARKER ., DR CAIN Consulting Unavailable MARKER ., DR CAIN Admitting Unavailable Ivy COHEN, Tato Dixon Attending Unavailable SHAIKH FRITZ Primary Care Physician [phone] Binu VARNER Attending Unavailable Allergies Allergy Classification Reported Allergen(s) Allergy Type Date of Onset Reaction(s) Facility (1 source) egg extract Drug Allergy 4 [facility] Repository (2 sources) Egg; Translations: [Eggs] Propensity to adverse reactions to food Weal (disorder) [facility] (1 source) No Known Medication Allergies; Translations: [No Known Medication Allergies] Propensity to adverse reactions (disorder) [facility] Repository NEGATED: Highlighted row has been ruled out! (1 source) Drug allergy [facility] Medications Current Medications Medication Drug Class(es) Dates [...] Other intermediate (current) drug therapy; Translations: [OTH [facility] CURRENT DRUG THERAPY] Onset: 07-06-2022 Episodic Other [...] Name Value Interpretation Reference Range Facil ity Formson 05-15-2023 Forms [id number]# 1.00TIFF Normal [facility] Formson 05-11-2023 Forms [id number] #1.00TIFF Normal [facility] Consent for Procedure/Surger yon 04-05-2023 Consent for Procedure/Surgery [id number] #1.00TIFF [facility] Facesheeton 04-05-2023 Facesheet [id number] #1.00TIFF [facility] Ambulatory Visit Summaryon 1 06-04-2022 Ambulatory Visit [...] you for choosing us for your care. [facility] RAD - Ultrasound Reporton RAD - Ultrasound Report [id number] #1.00TIFF [facility] Physician Referralon 023 Physician Referral [id number] #1.00TIFF [facility] Vital Signs Date Time Vital Sign Value Performing Clinician Maynor lees 04-04-2023 15:20-0500 Blood Pressure Location Binu NILL [facility] 04-04-2023 15:20-0500 Diastolic blood pressure 78 mm[Hg] Binu NILL [facility] 04-04-2023 15:20-0500 Heart rate 76 /min Binu NILL [facility] 04-04-2023 15:20-0500 Respiratory rate 16 /min Binu NILL [facility] 04-04-2023 15:20-0500 Systolic blood pressure 122 mm[Hg] Binu NILL [facility] Encounters Encounter Date Encounter Type Care Provider Facility Start: 04-04-2023 End: 04-05-2023 ambulatory [facility]ARN[facility] Start: 04-04-2023 End: 04-04-2023 Patient encounter procedure Binu BERNALL [facility] Start: 02-26-2023 ambulatory Binu VARNER Facility:[facility] Start: 12-21-2022 ambulatory Tato Haynes MD Fac ility:[facility] Start: 07-04-2022 End: 07-05-[address] [...] Immunization Date Immunization Notes Care Provider Fa cility 05-03-2021 SARS-CoV-2 (COVID-19 ) mRNA-1273 vaccine Binu VARNER [facility] 04-05-2021 SARS-CoV-2 (COVID-19 ) mRNA-1273 vaccine Binu VARNER [facility] NEGATED: Highlighted row has not occurred!04-04-2023 influenza virus vaccine, unspecified formulation Binu VARNER [facility] Payers Date Payer Category Payer Unknown [id number] 1970 Unknown [id number] 1959 Private Health Insurance [id number] Social History Date Type Detail Facility Start: 04-04-2023 Tobacco smoking status Heavy t obacco smoker (finding) [facility] Tobacco smoking status Never [facility] Sex Assigned At Male [facility] Functional Status Date Assessment Result Facility 04-04-2023 Functional Status N/A [facility] Clinical Note 04-04-2023 Note Date & Type [...] E&M of New Patient Moderate 45-59 Min 49829 2. Tobacco use (Z72.0: Tobacco use) We [...] E&M of New Patient Moderate 45-59 Min 23179 Follow-up No qualifying data available Problem List/Past [...] Oral, Daily Allergie (more content not included)... [facility] Comment on above: Result Comment: Elec tronically Signed By: TELLY COHEN, Binu Eddy\Date and Time Signed: 04/04/23 17:14 EST Evaluation + Plan note Note Date & Type Note Facility Evaluation + Plan note No data available for this section [facility] Discharge instructions Note Date & Type Note Facility Hospital Discharge instructions No data available for this section [facility] Progress note Note Date & Type Note Facility Progress note No data available for this section [facility] Summary Purpose Family History No Family History [...] and content) DATE CREATED AUTHOR 07/06/2022 [facility] DATE CREATED AUTHOR AUTHOR'S ORGANIZ ATION 12/18/2022 [facility] DATE CREATED AUTHOR AUTHOR'S ORGANIZ ATION 05/15/2023 [facility] Patient Care team informatio n (unrecognized section and content) Personnel Name: LOLI COHEN [facility] Address: Address: [address] [place] [phone] FOR RECORDS PERTAINING TO PATIENTS WHO ARE [...] BE BASED ON THE PRIMARY CLINICAL RECORDS. [facility] provides no warranty or guarantee of the accuracy or completeness of information in this document.
--- NOTE | 2023-05-16 08:03 | PC.NURSE ---
2 IV attempts by Leigh Ann Dos Santos RN
[2023-05-16] MEDS: LACTATED RINGER'S SOLUTION 1,000 ML 50 ML IV (08:04)
[2023-05-16] MEDS: CEFAZOLIN SODIUM/DEXTROSE,ISO 2 GM/50 ML PIGGYBACK IV (09:04)
--- NOTE | 2023-05-16 09:12 | PC.NURSE ---
05/16/23 0848- Final timeout alisha
[2023-05-16] MEDS: BUPIVACAINE HCL 0.25% PF 25 MG/10 ML VIAL INJ (09:35)
[2023-05-16] MEDS: BUPIVACAINE LIPOSOME/PF 266 MG/13.3 ML VIAL 13.3 MG INJ (09:36)
[2023-05-16] MEDS: 0.9 % SODIUM CHLORIDE 10 ML INJ (09:36)
[2023-05-16] MEDS: CEFAZOLIN SODIUM 1,000 MG in 0.9 % SODIUM CHLORIDE 10 ML 1000 MG IRR (09:40)
--- NOTE | 2023-05-16 09:41 | PC.NURSE ---
05/16/23 (4597) Final timeout completed. Patient placed in supine position. O2 placed on at 2l/min via nc. 0850- Tap block initiated. 0854- Tap block completed. Patient tolerated it well. See posted vital signs.
[2023-05-16] MEDS: HYDROMORPHONE HCL 0.5 MG/0.5 ML SYRINGE IV (10:57)
[2023-05-16] MEDS: OXYCODONE HCL/ACETAMINOPHEN 5MG/325MG 1 TAB PO (11:12)
== END 2023-05-16 12:20 | disposition home or self-care (01) ==
PROVIDERS: PCP Internal Medicine; Visit Provider Surgery
PROC: (CPT 00830; principal; 2023-05-16 08:55)
DX: K40.91 Unilateral inguinal hernia, without obstruction or gangrene, recurrent (principal); F41.8 Other specified anxiety disorders; E03.9 Hypothyroidism, unspecified; E66.3 Overweight; Z68.29 Body mass index [BMI] 29.0-29.9, adult; F17.210 Nicotine dependence, cigarettes, uncomplicated
CPT/HCPCS: 00830; 49520; 64488; C1781; J0665; J0690; J1100; J1170; J1885; J2250; J2405; J2704; J3010

== ENCOUNTER 2023-08-31 16:43 | Outpatient (OUT) | payer OTHER, SELFPAY ==
--- OUTSIDE RECORDS SUMMARY | 2023-08-31 16:53 | XMS_ITS | CCD ---
Author Organization [facility] Care Team Providers Care Technical Account Executive Name Role Phone HOUSE, DR MARSH Primary Care Unavailable MARKER ., DR CAIN Attending Unavailable MARKER ., DR CAIN Consulting Unavailable MARKER ., DR CAIN Admitting Unavailable Ivy COHEN, Tato Dixon Attending Unavailable MOHIT FRITZIKH Primary Care Physician Shaikh Fritz MD Primary Care Provider [phone] SHAIKH FRITZ Primary Care Unavailable ALEC, JOHNATHAN Referring Unavailable ALEC, JOHNATHAN [facility] Primary Care Unavailable ALEC, JOHNATHAN [facility] Primary Care Unavailable ALEC, JOHNATHAN [facility] Primary Care Unavailable ALEC, JOHNATHAN Referring [facility] Primary Care Unavailable [facility] Primary Care Unavailable ALEC, JOHNATHAN Referring Unavailable NILL, Binu Aguilar Attending Unavailable NILL, Binu Aguilar Attending Unavailable NILL, Binu Aguilar Attending Unavailable NILL, Binu Aguilar Attending Unavailable NILL, Binu Aguilar Attending Unavailable SHAIKH FRITZ Attending Unavailable RADHASHAIKH DESAI Attending Unavailable SHAIK FRITZH Attending Unavailable Allergies Allergy Classification Reported Allergen(s) Allergy Type Date of Onset Reaction(s) Facility (1 source) egg extract Drug Allergy 4 [facility] Repository (4 sources) Egg; Translations: [Eggs] Propensity to adverse reactions to food [place] (disorder) [facility] [place] (1 source) Eggs Or Egg-Derived Products Propensity to adverse reactions to drug 4 Hives [place] (1 source) Egg-Derived Products Propensity to adverse reactions to drug 4 Hives [place] (1 source) No Known Medication Allergies; Translations: [No Known Medication Allergies] Propensity to adverse reactions (disorder) [facility] Repository NEGATED: Highlighted row has been ruled out! (1 source) Drug allergy General Surgery [facility] NEGATED: Highlighted row has been ruled out! (1 source) Drug allergy General Surgery [facility] NEGATED: Highlighted row has been ruled out! (1 source) Drug allergy General Surgery [facility] Medications Current Medications Medication Drug Class(es) Dates Sig (Normalized) Sig (Original) acetaminophen 500 mg oral tablet (2 sources) take 2 tablets by mouth every six hours as needed for pain acetaminophen (TYLENOL) 500 MG tablet Take 2 tablets by mouth every 6 hours as needed for Pain 0 Active acetaminophen 250 mg / aspirin 250 mg / caffeine 65 mg oral tablet (2 sources) Platelet Aggregation Inhibitor, Nonsteroidal Anti-inflammatory Drug, Central Nervous System Stimulant, Methylxanthine take 2 tablets by mouth every six hours as needed for headache aspirin-acetaminop hen-caffeine (EXCEDRIN MIGRAINE) 250-250-65 MG per tablet Take 2 tablets by mouth every 6 hours as needed for Headaches 0 Active ascorbic acid 250 mg oral tablet (2 sources) Vitamin C take 1 tablet by mouth once daily Ascorbic Acid (VITAMIN C) 250 MG tablet Take 1 tablet by mouth daily 0 Active gabapentin 300 mg oral capsule (5 sources) Anti-epileptic Agent Start: 03-21-2023 gabapentin 300 mg Cap as diretced, Refills(s) 0 Start Date: 03/21/23 Status: Ordered levothyroxine sodium 0.175 mg oral tablet (5 sources) l-Thyroxine Start: 08-21-2023 take 1 tablet by mouth once daily Synthroid 175 mcg (0.175 mg) Tab 175 mcg = 1 tab(s), Oral, Daily, Refills(s) 0 Start Date: 08/21/23 Status: Ordered Start: 05-28-2023 End: 11-24-2023 take 1 tablet by mouth once daily before breakfast levothyroxine (SYNTHROID) 200 MCG tablet Take 1 tablet by mouth every morning (before breakfast) 0 05/28/2023 11/24/2023 Active Start: 03-21-2023 take 1 tablet by yolis th once daily levothyroxine 200 mcg (0.2 mg) Tab 200 mcg = 1 tab(s), Oral, Daily, Refills(s) 0 Start Date: 03/21/23 Status: Ordered verapamil hydrochloride 80 mg oral tablet (3 sources) Calcium Channel Yovani Start: 08-21-2023 take 1 tablet by mouth once daily verapamil 80 mg Tab 80 mg = 1 tab(s), Oral, Daily, Refills(s) 0 Start Date: 08/21/23 Status: Ordered Start: 07-23-2023 End: 10-21-2023 take 1 tablet by mouth once daily verapamil (CALAN) 40 MG tablet Take 1 tablet by mouth nightly 30 tablet 2 07/23/2023 10/21/2023 Active Problems Problem Classification Problem Date Documented Da te Episodic/Chronic Abdominal hernia (2 sources) Recurrent inguinal hernia; Translations: [Unilateral inguinal hernia, without obstruction or gangrene, recurrent] Onset: 04-04-2023 Episodic Anxiety disorders (3 sources) Mixed anxiety and depressive disorder 03-21-2023 Chronic Headache; including migraine (6 sources) Migraine; Translations: [Cluster headache] Onset: 07-23-2023 03-21-2023 Chronic Headache; including migraine (4 sources) Headache; including migraine; Translations: [HEADACHE UNSPECIFIED] Onset: 07-04-2022 Menopausal disorders (1 source) Hormone replacement therapy; Translations: [HORMONE REPLACEMENT THERAPY] Onset: 07-06-2022 Episodic Other aftercare (1 source) Other fpc (current) drug therapy; Translations: [OTH CARE HOME CURRENT DRUG THERAPY] Onset: 07-06-2022 Episodic Other nervous system disorders (1 source) Trigeminal neuralgia; Translations: [TRIGEMINAL NEURALGIA] Onset: 07-06-2022 Episodic Other nervous system disorders (3 sources) Trigeminal neuralgia 03-21-2023 Episodic Other nutritional; endocrine; and metabolic disorders (3 sources) Overweight 03-21-2023 Episodic Other nutritional; endocrine; and metabolic disorders (3 sources) Overweight in adulthood with body mass index of 25 or more but less than 30 04-04-2023 Episodic Other screening for suspected conditions (not mental disorders or infectious disease) (1 source) Screening for malignant neoplasm of colon done; Translations: [Encounter for screening for malignant neoplasm of colon] Onset: 08-21-2023 Episodic Residual codes; unclassified (1 source) Tobacco user; Translations: [Tobacco use] Onset: 04-04-2023 Episodic Screening and history of mental health and substance abuse codes (3 sources) Tobacco use and exposure - finding 04-04-2023 Chronic Spondylosis; intervertebral disc disorders; other back problems (2 sources) Cervical spondylosis; Translations: [Spondylosis without myelopathy or radiculopathy, cervical region] Onset: 07-23-2023 07-23-2023 Chronic Substance-related disorders (4 sources) Nicotine dependence, cigarettes, uncomplicated; Translations: [Smoker] Onset: 07-06-2022 03-21-2023 Chronic Thyroid disorders (6 sources) Hypothyroidism; Translations: [Hypothyroidism, unspecified] Onset: 07-23-2023 03-21-2023 Chronic Unclassified (3 sources) Recurrent left inguinal hernia 04-04-2023 Unclassified (1 source) Patient encounter status 08-21-2023 Results Test Name Value Interpretation Reference Range Facility Consent for Procedure/Surger yon 08-22-2023 Consent for Procedure/Surgery [id number] Normal [facility] Ambulatory Visit Summaryon 0 08-21-2023 Ambulatory Visit Summary LUIS OSPINA :1970 Visit Date:08/21/2023 Ambulatory Visit Instructions Your Diagnosis Screening for malignant neoplasm of colon Your Care Team Attending Physician - ROMAINE COHEN, Binu Aguilar Primary Care Physician - LOLI COHEN, [facility] This Is Your Medications List Contact prescribing physician if questions or concerns gabapentin (gabapentin 300 mg Cap) levothyroxine (Synthroid 175 mcg (0.175 mg) Tab) verapamil (verapamil 80 mg Tab) Procedures Performed Repair of recurrent left inguinal hernia (05/16/2023), Repair of recurrent right inguinal hernia (06/13/2016), Repair of right inguinal hernia (04/14/2014), Excision of cyst, History of lumbar spine surgery, Repair of left inguinal hernia, Rotator cuff repair. Discharge Vitals Heart Rate (Peripheral) 72 Respiratory Rate 16 Blood Pressure 118/80 Height 188 cm Height 74 in Weight 103 kg Weight 226.6 lb BMI 29.14 Medications What How Much When Instructions Unchanged gabapentin (gabapentin 300 mg Cap) as diretced Contact prescribing physician if questions or concerns Unchanged levothyroxine (Synthroid 175 mcg (0.175 mg) Tab) 1 Tablets By Mouth Every day Contact prescribing physician if questions or concerns Unchanged verapamil (verapamil 80 mg Tab) 1 Tablets By Mouth Every day Contact prescribing physician if questions or concerns Allergies Eggs (Hives) No Known Medication Allergies Problems Ongoing - Any problem that you are currently receiving treatment for. Anxiety and depression BMI 29.0-29.9,adult Hypothyroidism Migraines Over weight Recurrent left inguinal hernia Screening for malignant neoplasm of colon Smoker Tobacco use Trigeminal neuralgia Patient Survey You may receive a survey via text or e-mail asking about your office visit. Please share your experience with us by completing your survey. We appreciate your feedback and thank you for choosing us for your care. Normal [facility] Basic Metabolic Panelon 07-06 Calcium [Mass/Vol] 9.1 mg/dL Normal 8.4-10.2 [facility] Comment on above: Performed By: #### B MP #### [place] [address] Ph. [phone] Chloride [Moles/Vol] 107 mmol/L Normal 98-107 [facility] Comment on above: Performed By: #### B MP #### [place] [address] Ph. [phone] CO2 [Moles/Vol] 24 mmol/L Normal 22-32 [facility] Comment on above: Performed By: #### B MP #### [place] [address] Ph. [phone] Creatinine [Mass/Vol] 0.95 mg/dL Normal 0.66-1.25 [facility] Comment on above: Performed By: #### B MP #### [place] [address] Ph. [phone] GFR/1.73 sq M.predicted among non-blacks MDRD (S/P/Bld) [Vol rate/Area] 95 mL/min/{1.73_m2} Normal >60 [facility] Comment on above: Result Comment: GFR calculated using CKD-EPI (2020) formula.\X0D0A\Stage 1 Kidney damage (e.g., protein in the urine) with normal GFR >=90\X0D0A\Stage 2 Kidney damage with mild decrease in GFR 60-89\X0D0A\Stage 3a Moderate decrease in GFR 45-59\X0D0A\Stage 3b Moderate decrease in GFR 30-44\X0D0A\Stage 4 Severe reduction in GFR 15-29\X0D0A\Stage 5 Kidney failure <15 Performed By: #### B MP #### [address] [address] Ph. [phone] Glucose [Mass/Vol] 101 mg/dL High 65-100 [facility] Comment on above: Performed By: #### B MP #### [address] [address] Ph. [phone] Potassium [Moles/Vol] 3.7 mmol/L Normal 3.6-5.0 [facility] Comment on above: Performed By: #### B MP #### [address] [address] Ph. [phone] Sodium [Moles/Vol] 141 mmol/L Normal 135-145 [facility] Comment on above: Performed By: #### B MP #### [address] [address] Ph. [phone] Urea nitrogen [Mass/Vol] 17 mg/dL Normal 9-20 [facility] Comment on above: Performed By: #### B MP #### [address] [address] Ph. [phone] MRI BRAIN W WO CONTRASTon MRI BRAIN W WO CONTRAST RADRPT EXAMINATION: MRI BRAIN W WO CONTRAST EXAM DATE: 07/31/2023 4:24 PM EDT TECHNIQUE: Brain + high-resolution cranial nerve survey protocol multisequence multiparametric MR acquisition before and after uneventful intravenous contrast administration. INDICATION: Cluster headache, not intractable, unspecified chronicity pattern COMPARISON: 07/06/2020 MRI, 03/25/[address] and CTA ___ FINDINGS: No fluid collection, hemorrhage or diffusion abnormality. Unremarkable high-resolution cranial survey. Stable patchy central pontine T2 FLAIR hyperintensity. No pathologic cranial nerve attachments. Unremarkable membranous labyrinths. Nonspecific confluent bifrontal periventricular T-2 FLAIR hyperintensity with a few elongates periventricular extensions of white matter T2 FLAIR hyperintensity. Focal nonenhancing lentiform periventricular vacuolar change adjacent anterior superior left frontal horn. Additional scattered posterior temporal and parietal deep white matter T2 FLAIR hyperintensities. Chronic left mesial temporal/occipital JACQUARD [employer]OM [employer]ER territory infarct. Symmetric globus pallidus calcification. Age-appropriate CSF spaces. Major vascular flow voids are preserved. No pathologic enhancement. OTHER: No significant extraneous finding ___ Report electronically signed by: Dr. 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 Sequela of demyelination and/or chronic microvascular ischemia Dense symmetric globus pallidus calcification h/o cluster headaches. Also suspected of trigeminal neuralgia-- r/o brain stem lesions, Cluster headache, not intractable, unspecified chronicity pattern, Hypothyroidism, unspecified type. 15 ml Multihance Interpreted by: Pranav Rolle MD Signed by: Pranav Rolle MD 07/31/23 Final result Normal [facility] XR Cervical spine 4 or 5 Vie wson 07-24-2023 Minimal multilevel degenerative changes of the cervical spine without evidence for acute fracture [facility] RIS CONSOLIDATED EXAM: XR CERVICAL SPINE (4-5 VIEWS) CLINICAL INDICATION: Cluster headache, not intractable, unspecified chronicity pattern COMPARISON: None TECHNIQUE: 5 views of the cervical spine FINDINGS: The cervical spine is seen from C1 through C7. Vertebral body heights are maintained without evidence for acute fracture. Mild retrolisthesis of C5 on C6. Minimal multilevel degenerative changes of the cervical spine. Bilateral facet and uncovertebral hypertrophy resulting in mild bony neural foraminal encroachment at C5-C6 bilaterally. The odontoid and lateral masses are grossly intact. Prevertebral soft tissues are within normal limits. Report electronically signed by: Dr. Brady Mcclain [facility] Brady Knox MD - 07/24/2023 EXAM: XR CERVICAL SPINE (4-5 VIEWS) CLINICAL INDICATION: Cluster headache, not intractable, unspecified chronicity pattern COMPARISON: None TECHNIQUE: 5 views of the cervical spine FINDINGS: The cervical spine is seen from C1 through C7. Vertebral body heights are maintained without evidence for acute fracture. Mild retrolisthesis of C5 on C6. Minimal multilevel degenerative changes of the cervical spine. Bilateral facet and uncovertebral hypertrophy resulting in mild bony neural foraminal encroachment at C5-C6 bilaterally. The odontoid and lateral masses are grossly intact. Prevertebral soft tissues are within normal limits. Report electronically signed by: Dr. Brady Mcclain IMPRESSION: Minimal multilevel degenerative changes of the cervical spine without evidence for acute fracture [employer] Work Phone: XR Cervical spine 4 or 5 Vie wsOrdered By: Brady Mcclain on 07-24-2023 [employer] Phone: CRISTEL SCREEN WITH REFLEXon CRISTEL Screen, IFA Positive Abnormal Negative [facility] Comment on above: Order Comment: [facility] performed at: [facility], [facility], [address] [place] [address], , Stallion Manager: Eulogio Tapia MD PhD\X0D0A\[facility] Collection Date/Time: [id number]\X0D0A\[facility] Results Received Date/Time: [id number]\X0D0A\[facility] Reported Date/Time: Result Comment: \X0D 0A\CRISTEL IFA is a first line screen for detecting the\X0D0A\presence of up to approximately 150 autoantibodies in\X0D0A\various autoimmune diseases. A positive CRISTEL IFA result\X0D0A\is suggestive of autoimmune disease and reflexes to\X0D0A\titer and pattern. Further laboratory testing may be\X0D0A\considered if clinically indicated.\X0D0A\ \X0D0A\For additional information, please refer to\X0D0A\[email or web address]\X0D0A\ \X0D0A\(This link is being provided for informational/\X0D0A\educational purposes only.)\X0D0A\ Performed By: #### B 12, FOL, [id number], FT4, RF #### [place] [address] Ph. [phone] CRISTEL, Titer and Patternon CRISTEL Pattern SEE BELOW Normal [facility] Comment on above: Order Comment: [facility] performed at: [facility], [facility], [address] [place] [address], , Stallion Manager: Eulogio Tapia MD PhD\X0D0A\[facility] Collection Date/Time: [id number]\X0D0A\[facility] Results Received Date/Time: [id number]\X0D0A\[facility] Reported Date/Time: Result Comment: Nucl ear, Speckled\X0D0A\ \X0D0A\Speckled pattern is associated with mixed connective\X0D0A\tissue disease (MCTD), systemic lupus erythematosus\X0D0A\(SLE), Sjogren's syndrome, dermatomyositis, and\X0D0A\systemic sclerosis/polymyositis overlap.\X0D0A\ \X0D0A\AC-2, 4, 5, 29: Speckled\X0D0A\International Consensus on CRISTEL Patterns\X0D0A\[email or web address]\X0D0A\ Performed By: #### B 12, FOL, [id number], FT4, RF #### [address] [address] Ph. [phone] CRISTEL Titer 1:40 Abnormal Negative [facility] Comment on above: Order Comment: [facility] performed at: [facility], [facility], [address] [place] [address], , Stallion Manager: Eulogio Tapia MD PhD\X0D0A\[facility] Collection Date/Time: [id number]\X0D0A\[facility] Results Received Date/Time: [id number]\X0D0A\[facility] Reported Date/Time: Result Comment: \X0D 0A\A low level CRISTEL titer may be present in pre-clinical\X0D0A\autoimmune diseases and normal individuals.\X0D0A\ \X0D0A\Reference Range:\X0D0A\<1:40 Negative\X0D0A\1:40-1:80 Low Antibody Level\X0D0A\>1:80 Elevated Antibody Level Performed By: #### B 12, FOL, [id number], FT4, RF #### [place] [address] Ph. [phone] Erythrocyte Sedimentation Ra elijah 07-23-2023 ESR (Bld) [Velocity] 1 mm/h Normal 0-20 [facility] Comment on above: Result Comment: The ESR varies with age. The maximum normal ESR at a given age is calculated using the formulas:Men: Age in years/2Women: (Age in years + 10)/2 Performed By: #### E SR #### [place] [id number] Ph. [phone] Folateon 07-23-2023 FOL 4.64 ng/mL Normal 2.76-20.00 [facility] Comment on above: Result Comment: The normal range for adults (18-65) is 2.76- >20.00 ng/mL.\X0D0A\The normal range for folate deficient patients is 1.04-2.79 ng/mL. Performed By: #### B 12, FOL, KCO514, FT4, RF #### [place] [address] Ph. [phone] Folate 4.64 ng/mL 2.76 - 20.00 ng/mL [facility] Comment on above: The normal range for adults (18-65) is 2.76->20.00 ng/mL. The normal range for folate deficient patients is 1.04-2.79 ng/mL. Free T4on 07-23-2023 Free T4 [Mass/Vol] 1.50 ng/dL Normal 0.78-2.19 [facility] Comment on above: Performed By: #### B 12, FOL, DPL570, FT4, RF #### [place] [address] Ph. [phone] No Panel Informationon 07-22 [facility] PROTEIN ELECTROPHORESIS, SER UMon 07-23-2023 Abnormal Protein Band 1 SEE BELOW Normal [facility] Comment on above: Order Comment: [facility] performed at: [facility], [facility], [address] [place] [address], , Stallion Manager: Eulogio Tapia MD PhD\X0D0A\[facility] Collection Date/Time: [id number]\X0D0A\[facility] Results Received Date/Time: [id number]\X0D0A\[facility] Reported Date/Time: [id number] Collection Date/Time: [id number] Result Comment: No M Ricky detected.\X0D0A\ \X0D0A\ Reference Range: None Detected\X0D0A\ Performed By: #### B 12, FOL, RAF031, FT4, RF #### [place] [address] Ph. [phone] Albumin [Mass/Vol] 4.1 g/dL Normal 3.8-4.8 [facility] Comment on above: Order Comment: [facility] performed at: [facility], [address] [place] [address], , Stallion Manager: Eulogio Tapia MD PhD\X0D0A\[facility] Collection Date/Time: [id number]\X0D0A\[facility] Results Received Date/Time: [id number]\X0D0A\[facility] Reported Date/Time: [id number] Collection Date/Time: [id number] Performed By: #### Christ 12, FOL, III914, FT4, RF #### [place] [address] Ph. [phone] Alpha 1 Globulin 0.3 g/dL Normal 0.2-0.3 [facility] Comment on above: Order Comment: [facility] performed at: [facility], [address] [place] [address], , Stallion Manager: Eulogio Tapia MD PhD\X0D0A\[facility] Collection Date/Time: [id number]\X0D0A\[facility] Results Received Date/Time: [id number]\X0D0A\[facility] Reported Date/Time: [id number] Collection Date/Time: [id number] Performed By: #### Christ 12, FOL, FJQ657, FT4, RF #### [place] [address] Ph. [phone] Alpha 2 Globulin 0.7 g/dL Normal 0.5-0.9 [facility] Comment on above: Order Comment: [facility] performed at: [facility], [address] [place] [address], , Stallion Manager: Eulogio Tapia MD PhD\X0D0A\[facility] Collection Date/Time: [id number]\X0D0A\[facility] Results Received Date/Time: [id number]\X0D0A\[facility] Reported Date/Time: [id number] Collection Date/Time: [id number] Performed By: #### B 12, FOL, RBU560, FT4, RF #### [place] [address] Ph. [phone] Beta 1 Globulin 0.5 g/dL Normal 0.4-0.6 [facility] Comment on above: Order Comment: [facility] performed at: [facility], [facility], [address] [place] [address], , Stallion Manager: Eulogio Tapia MD PhD\X0D0A\[facility] Collection Date/Time: [id number]\X0D0A\[facility] Results Received Date/Time: [id number]\X0D0A\[facility] Reported Date/Time: [id number] Collection Date/Time: [id number] Performed By: #### B 12, FOL, XCO071, FT4, RF #### [place] [address] Ph. [phone] Beta 2 Globulin 0.3 g/dL Normal 0.2-0.5 [facility] Comment on above: Order Comment: [facility] performed at: [facility], [facility], [address] [place] [address], , Stallion Manager: Eulogio Tapia MD PhD\X0D0A\[facility] Collection Date/Time: [id number]\X0D0A\[facility] Results Received Date/Time: [id number]\X0D0A\[facility] Reported Date/Time: [id number] Collection Date/Time: Performed By: #### B 12, FOL, QSU259, FT4, RF #### [place] [address] Ph. [phone] Gamma Globulin 1.1 g/dL Normal 0.8-1.7 [facility] Comment on above: Order Comment: [facility] performed at: [facility], [facility], [address] [place] [address], , Stallion Manager: Eulogio Tapia MD PhD\X0D0A\[facility] Collection Date/Time: [id number]\X0D0A\[facility] Results Received Date/Time: [id number]\X0D0A\[facility] Reported Date/Time: [id number] Collection Date/Time: [id number] Performed By: #### B 12, FOL, GKD052, FT4, RF #### [place] [address] Ph. [phone] Interpretation SEE BELOW Normal [facility] Comment on above: Order Comment: [facility] performed at: [facility], [facility], [address] [place] [address], , Stallion Manager: Eulogio Tapia MD PhD\X0D0A\[facility] Collection Date/Time: [id number]\X0D0A\[facility] Results Received Date/Time: [id number]\X0D0A\[facility] Reported Date/Time: [id number] Collection Date/Time: Result Comment: Norm al Serum Protein\X0D0A\Electrophoresis Pattern. No abnormal protein bands\X0D0A\(M-protein) detected. Performed By: #### B 12, FOL, XHW279, FT4, RF #### [place] [address] Ph. [phone] Protein [Mass/Vol] 7.1 g/dL Normal 6.1-8.1 [facility] Comment on above: Order Comment: [facility] performed at: [facility], [facility], [address] [place] [address], , Stallion Manager: Eulogio Tapia MD PhD\X0D0A\[facility] Collection Date/Time: [id number]\X0D0A\[facility] Results Received Date/Time: [id number]\X0D0A\[facility] Reported Date/Time: [id number] Collection Date/Time: [id number] Performed By: #### B 12, FOL, MKY590, FT4, RF #### [place] [address] Ph. [phone] Rheumatoid Factoron 07-23-19 24 RF Negative Normal Negative [facility] Comment on above: Performed By: #### B 12, FOL, LKK286, FT4, RF #### [place] [address] Ph. [phone] Rheumatoid Factor Negative Negative [facility] Sedimentation Rateon 024 Sed Rate 1 [facility] Comment on above: The ESR varies with age. The maximum normal ESR at a given age is calculated using the formulas:Men: Age in years/2Women: (Age in years + 10)/2 [facility] T4, Freeon 07-23-2023 Free T4 [Mass/Vol] 1.50 ng/dL 0.78 - 2. 19 ng/dL [facility] TSH Reflex FT4on 07-23-2023 TSH 0.168 mIU/mL Low 0.470-4.680 [facility] Comment on above: Performed By: #### B 12, FOL, [id number], FT4, RF #### [address] [place] [address] Ph. [phone] TSH with Reflexon 07-23-2023 Interpretation and review of laboratory results Abnormal [facility] TSH Qn 0.168 m[IU]/L Low [facility] Vitamin B12on 07-23-2023 Cobalamin (Vitamin B12) [Mass/Vol] 359 pg/mL Normal 239-900 [facility] Comment on above: Performed By: #### B 12, FOL, [id number], FT4, RF #### [id number] [place] [address] Ph. [phone] Cobalamin (Vitamin B12) [Mass/Vol] 359 pg/mL 239 - 900 pg/mL [facility] XR CERVICAL SPINE (4-5 VIEWS )on 07-23-2023 XR CERVICAL SPINE (4-5 VIEWS) RADRPT EXAM: XR CERVICAL SPINE (4-5 VIEWS) CLINICAL INDICATION: Cluster headache, not intractable, unspecified chronicity pattern COMPARISON: None TECHNIQUE: 5 views of the cervical spine FINDINGS: The cervical spine is seen from C1 through C7. Vertebral body heights are maintained without evidence for acute fracture. Mild retrolisthesis of C5 on C6. Minimal multilevel degenerative changes of the cervical spine. Bilateral facet and uncovertebral hypertrophy resulting in mild bony neural foraminal encroachment at C5-C6 bilaterally. The odontoid and lateral masses are grossly intact. Prevertebral soft tissues are within normal limits. Report electronically signed by: Dr. Brady Mcclain IMPRESSION: Minimal multilevel degenerative changes of the cervical spine without evidence for acute fracture cervical spondylosis Interpreted by: Brady Mcclain MD Signed by: Brady Mcclain MD 07/24/23 Final result Normal [facility] XR Cervical spine 4 or 5 Vie wson 07-23-2023 Radiology Study observation (narrative) [facility] Work Phone: XR TMJ BILATERALon 4 XR TMJ BILATERAL RADRPT 6 views of the temporomandibular joints INDICATION: Headache COMPARISON: None Report electronically signed by: Dr. Brady Mcclain IMPRESSION: No acute fractures or dislocation. There is apparent appropriate translation of the mandibular condyles with jaw opening and closing. If there is persistent clinical concern, MRI evaluation of the temporomandibular joints can be pursued. Clear paranasal sinuses and mastoid air cells. Soft tissues are grossly unremarkable. Table formatting from the original note was not included. c/o pain in right jaw TMJ area Interpreted by: Brady Mcclain MD Signed by: Brady Mcclain MD 07/24/23 Final result Normal [facility] Ambulatory Visit Summaryon 0 06-13-2023 Ambulatory Visit Summary LUIS OSPINA :1970 Visit Date:06/13/2023 Ambulatory Visit Instructions Your Care Team Attending Physician - Binu VARNER MD Primary Care Physician - SHAIKH FRITZ MD This Is Your Medications List gabapentin (gabapentin 300 mg Cap) levothyroxine (levothyroxine 200 mcg (0.2 mg) Tab) Procedures Performed Repair of recurrent left inguinal hernia (05/16/2023), Repair of recurrent right inguinal hernia (06/13/2016), Repair of right inguinal hernia (04/14/2014), Excision of cyst, History of lumbar spine surgery, Repair of left inguinal hernia, Rotator cuff repair. What to do next Scheduled Follow-Up Appointments Sunday 3:40 PM EDT With: ROMAINE COHEN, Binu Aguilar Where: General Surgery Romaine/Aviva Simmons [facility] General Surgery Office/Clini c Noteon 06-13-2023 General Surgery Office/Clinic Note Chief Complaint post operative follow up HPI Staff 28 day post operative follow up post left inguinal hernia repair. Moderate discomfort since starting back to work on Sunday. He does fair amount of heavy lifting. He is alternating Tylenol and Ibuprofen which has been effective. Denies bleeding or drainage. Bowels moving well. History of Present Illness 1 month s/p repair recurrent left inguinal hernia; doing well, returned to work 2 days ago; mild soreness in evening, controlled with ibuprofen or Tylenol; no skin changes or drainage, no bulge. Review of Systems ROS - Provider Constitutional: no fever, no [...] in stool, no change in bowel habits, no abdominal pain, no hepatitis. Genitourinary: no kidney [...] and are negative or noncontributory. Physical Exam abd: soft, nontender, nondistended, incision without erythema or drainage. Assessment/Plan 1. Recurrent left inguinal hernia (K40.91: Unilateral inguinal hernia, without obstruction or gangrene, recurrent) doing well, continue regular activities; f/u if problems/questions. Follow-up With When Contact Information ROMAINE COHEN, Binu Aguilar, [place] Only if needed [address] [place] [address]- Additional Instructions: Problem List/Past Medical History Ongoing Anxiety and depression BMI 29.0-29.9,adult Hypothyroidism Migraines Over weight Recurrent left inguinal hernia Smoker Tobacco use Trigeminal neuralgia Historical No qualifying data Procedure/Surgical History Repair of recurrent left inguinal hernia (05/16/2023), Repair of recurrent right inguinal hernia (06/13/2016), Repair of right inguinal hernia (04/14/2014), Excision of cyst, History of lumbar spine surgery, Repair of left inguinal hernia, Rotator cuff repair. Medications gabapentin 300 mg Cap levothyroxine 200 mcg (0.2 mg) Tab, 200 mcg= 1 tab(s), Oral, Daily Allergies Eggs (Hives) No Known Medication Allergies Social History Alcohol - Denies Alcohol Use, 04/04/2023 Substance Abuse - Denies Substance Abuse, 04/04/2023 Tobacco 10 or more cigarettes (1/2 pack or more)/day in last 30 days Tobacco Use:. Never Smokeless Tobacco Use:. Cigarettes, 1 per day. Started age 20.0 Years. Yes, 04/04/2023 Family History Primary malignant neoplasm of colon: Father. Primary malignant neoplasm of lung: Mother. Immunizations Vaccine Date Status Comments influenza virus vaccine, inactivated - Not Given Patient Refuses SARS-CoV-2 (COVID-19) mRNA-1273 vaccine 05/03/2021 Recorded SARS-CoV-2 (COVID-19) mRNA-1273 vaccine 04/05/2021 Recorded Normal [facility] Comment on above: Result Comment: Elec tronically Signed By: ROMAINE COHEN, Binu Aguilar\.br\Date and Time Signed: 06/13/23 15:53 EST [employer] 05-31-2023 Forms [id number]#1.0 0TIFF Normal [facility] Ambulatory Visit Summaryon 0 05-23-2023 Ambulatory Visit Summary LUIS OSPINA :1970 Visit Date:05/23/2023 Ambulatory Visit Instructions Your Care Team Attending Physician - Binu VARNER MD Primary Care Physician - LOLI COHEN, MESSER This Is Your Medications List gabapentin (gabapentin 300 mg Cap) levothyroxine (levothyroxine 200 mcg (0.2 mg) Tab) Procedures Performed Repair of recurrent left inguinal hernia (05/16/2023), Repair of recurrent right inguinal hernia (06/13/2016), Repair of right inguinal hernia (04/14/2014), Excision of cyst, History of lumbar spine surgery, Repair of left inguinal hernia, Rotator cuff repair. What to do next Scheduled Follow-Up Appointments Sunday. 2023 3:20 PM EST With: Binu VARNER MD Where: General Surgery Romaine/Aviva Hernandez Normal [facility] General Surgery Office/Clini c Noteon 05-23-2023 General Surgery Office/Clinic Note Chief Complaint post operative follow up HPI Staff 7 day post operative follow up post left inguinal hernia repair. Reports minimal discomfort, alternating Tylenol and Ibuprofen PRN. Denies bleeding or drainage. Bowels moving well. History of Present Illness 1 week s/p LIHR with mesh for recurrent direct inguinal hernia; doing well, mild soreness, controlled with ibuprofen and Tylenol; normal bms, voiding well, no drainage from incision; no strenuous activities. Review of Systems ROS - Provider Constitutional: no fever, no [...] in stool, no change in bowel habits, no abdominal pain, no hepatitis. Genitourinary: no kidney [...] and are negative or noncontributory. Physical Exam abd: soft, normal bs, nontender, nondistended, Assessment/Plan 1. Recurrent left inguinal hernia (K40.91: Unilateral inguinal hernia, without obstruction or gangrene, recurrent) doing well, continue no lifting > 10 lbs for 3 weeks; f/u in 3 weeks, call sooner if problems/questions. Follow-up No qualifying data available Problem List/Past Medical History Ongoing Anxiety and depression BMI 29.0-29.9,adult Hypothyroidism Migraines Over weight Recurrent left inguinal hernia Smoker Tobacco use Trigeminal neuralgia Historical No qualifying data Procedure/Surgical History Repair of recurrent left inguinal hernia (05/16/2023), Repair of recurrent right inguinal hernia (06/13/2016), Repair of right inguinal hernia (04/14/2014), Excision of cyst, History of lumbar spine surgery, Repair of left inguinal hernia, Rotator cuff repair. Medications gabapentin 300 mg Cap levothyroxine 200 mcg (0.2 mg) Tab, 200 mcg= 1 tab(s), Oral, Daily Allergies Eggs (Hives) No Known Medication Allergies Social History Alcohol - Denies Alcohol Use, 04/04/2023 Substance Abuse - Denies Substance Abuse, 04/04/2023 Tobacco 10 or more cigarettes (1/2 pack or more)/day in last 30 days Tobacco Use:. Never Smokeless Tobacco Use:. Cigarettes, 1 per day. Started age 20.0 Years. Yes, 04/04/2023 Family History Primary malignant neoplasm of colon: Father. Primary malignant neoplasm of lung: Mother. Immunizations Vaccine Date Status Comments influenza virus vaccine, inactivated - Not Given Patient Refuses SARS-CoV-2 (COVID-19) mRNA-1273 vaccine 05/03/2021 Recorded SARS-CoV-2 (COVID-19) mRNA-1273 vaccine 04/05/2021 Recorded Normal [facility] Comment on above: Result Comment: Elec tronically Signed By: ROMAINE COHEN, Binu Eddy\Date and Time Signed: 05/23/23 16:12 EST Operative Reporton Operative Report [id number] TIFF Normal [facility] [employer] 05-15-2023 Forms [id number]#1.00 TIFF Normal [facility] 05-11-2023 Forms [id number] 0TIFF [facility] Consent for Procedure/Surger yon 04-05-2023 Consent for Procedure/Surgery [id number] 0TIFF Normal [facility] Facesheeton 04-05-2023 Facesheet [id number] 0TIFF [facility] Ambulatory Visit Summaryon 1 06-04-2022 Ambulatory Visit Summary LUIS OSPINA :1970 Visit Date:04/04/2023 Ambulatory Visit Instructions Your Care Team Attending Physician - ROMAINE COHEN, Binu Aguilar Primary Care Physician - [...] for choosing us for your care. Normal [facility] RAD - Ultrasound Reporton RAD - Ultrasound Report [id number] 0TIFF Normal [facility] Physician Referralon 023 Physician Referral [id number] 0TIFF [facility] Vital Signs Date Time Vital Sign Value Performing Clinician Maynor lees 08-21-2023 15:39-0400 Blood Pressure Location Binu VARNER [facility] [place] 08-21-2023 15:39-0400 Diastolic blood pressure 80 mm[Hg] Binu VARNER [facility] [place] 08-21-2023 15:39-0400 Heart rate 72 /min Binu NILL [facility] [place] 08-21-2023 15:39-0400 Respiratory rate 16 /min Binu NILL [facility] [place] 08-21-2023 15:39-0400 Systolic blood pressure 118 mm[Hg] Binu NILL [facility] [place] 04-04-2023 15:20-0500 Blood Pressure Location Binu NILL [facility] [place] 04-04-2023 15:20-0500 Diastolic blood pressure 78 mm[Hg] Binu NILL [facility] [place] 04-04-2023 15:20-0500 Heart rate 76 /min Binu NILL [facility] [place] 04-04-2023 15:20-0500 Respiratory rate 16 /min Binu NILL [facility] [place] 04-04-2023 15:20-0500 Systolic blood pressure 122 mm[Hg] Binu NILL [facility] [place] Encounters Encounter Date Encounter Type Care Provider Facility Start: 08-27-2023 End: 08-27-2023 ambulatory LOLI Not Available Start: 08-21-2023 End: 08-22-2023 ambulatory Binu R NILL Facility:[facility] Start: 08-21-2023 End: 08-21-2023 Patient encounter procedure Binu R NILL General Surgery Nill/Said [place] Start: 07-31-[address] [facility] Start: 07-23-[address] [facility] Start: 07-23-2023 End: 07-25-2023 Subsequent hospital visit by physician [facility] Comment on above: Cluster headache, no t intractable, unspecified chronicity pattern; Hypothyroidism, unspecified type Cluster headache, no t intractable, unspecified chronicity pattern; Hypothyroidism, unspecified type; Cervical spondylosis Start: 07-04-2023 End: 07-04-2023 ambulatory SHAIKH LOLI Not Available Start: 06-13-2023 End: 06-14-2023 ambulatory Binu R NILL Facility:[facility] Start: 05-28-2023 End: 05-28-2023 ambulatory SHAIKH LOLI Not Available Start: 05-23-2023 End: 05-24-2023 ambulatory Binu R NILL Facility:[facility] Start: 05-23-2023 End: 05-23-2023 Patient encounter procedure Binu R NILL General Surgery Nill/[facility] Start: 05-16-2023 End: 05-17-2023 ambulatory Binu R NILL Facility:CD:[id number] Start: 04-04-2023 End: 04-05-2023 ambulatory Binu R NILL Facility: [facility] Start: 04-04-2023 End: 04-04-2023 Patient encounter procedure Binu R NILL General Surgery Nill/[facility]iva [facility] Start: 02-26-2023 ambulatory Binu NILL Facility:[facility] Start: 12-21-2022 ambulatory Taot Haynes MD Fac ility:[facility] Start: 07-04-2022 End: 07-05-[address] SALMA MOHR Facility:[facility] Procedures Date Procedure Procedure Detail Performing Clinician Start: 07-23-2023 Radex spine cervical 4 or 5 views Johnathan Bourne MD Work Phone: Start: 07-23-2023 Cyanocobalamin vitamin b-12 Johnathan Bourne MD Work Phone: Start: 07-23-2023 Rheumatoid factor quantitative Johnathan Bourne MD Work Phone: Start: 05-16-2023 Repair of recurrent left inguinal hernia Binu VARNER Start: 06-13-2016 Repair of recurrent right inguinal hernia Binu VARNER Start: 04-14-2014 Repair of right ingu inal hernia Binu VARNER Excision of cyst Binu Cordon Comment on above: pilar History of operative procedure on lumbar spinal structure Binu VARNER Repair of left ingui nal hernia Binu VARNER Repair of musculoten dinous cuff of shoulder Binu VARNER Plan of Treatment Date Care Activity Detail Author Start: 09-10-2023 End: 09-10-2023 Patient encounter procedure 09/10/2023 10:30 AM EDT Office Visit [facility] [address] [address] Johnathan Bourne MD [address] [place] [phone] 9 week follow Cluster Headache; DME O2, MRI, Labs, XR, start Verapamil [facility] Comment on above: 9 week follow Cluste r Headache; DME O2, MRI, Labs, XR, start Verapamil Start: 07-31-2023 End: 07-31-2023 Patient encounter procedure 07/31/2023 3:30 PM EDT Appointment [facility] [address] [place] [id number] Cluster headache [facility] Comment on above: Cluster headache Start: 12-05-2022 Influenza vaccination Flu vaccine (# 1) [facility] Start: 01-12-2020 Screening for malign ant neoplasm of lung Low dose CT lung screening &/or counseling [facility] Start: 01-12-2020 Shingles vaccine (1 of 2) Bui gles vaccine (1 of 2) [facility] Start: 2015 Screening for malign ant neoplasm of colon [facility] Start: 2010 Lipid panel Lipids [facility] Start: 2005 Diabetes screen Diabetes screen [facility] Start: 1989 DTaP/Tdap/Td vaccine (1 - Tdap) DTaP/Tdap/Td vaccine (1 - Tdap) [facility] Start: 01-12-1988 Hepatitis C screening Hepatitis C sc reen [facility] Start: 1985 HIV screening HIV screen [facility] Start: 1982 Depression Screen Depression Screen [facility] Start: 01-12-1976 Pneumococcal 0-64 ye ars Vaccine (1 of 2 - PCV) Pneumococcal 0-64 years Vaccine (1 of 2 - PCV) [facility] Start: 1970 COVID-19 Vaccine (#1) COVID-19 Vacci ne (#1) [facility] Start: 1970 Hepatitis B vaccine (1 of 3 - 3-dose series) Hepatitis B vaccine (1 of 3 - 3-dose series) [facility] End: 07-23-2023 CRISTEL Screen with Reflex [facility] Work Phone: Comment on above: 1 Occurrences starti ng 07/23/2023 until 07/23/2023 End: 07-23-2023 Electrophoresis Protein, Serum [facility] Work Phone: Comment on above: 1 Occurrences starti ng 07/23/2023 until 07/23/2023 Immunizations Immunization Date Immunization Notes Care Provider Fa chritsy 05-03-2021 SARS-CoV-2 (COVID-19 ) mRNA-1273 vaccine Binu VARNER [facility] 04-05-2021 SARS-CoV-2 (COVID-19 ) mRNA-1273 vaccine Binu VARNER [facility] [place] NEGATED: Highlighted row has not occurred!04-04-2023 influenza virus vaccine, unspecified formulation Binu VARNER [facility] Payers Date Payer Category Payer Unknown [id number] 2.16.84 [id number] 1970 Unknown [id number] 2.16.8 [id number] 1970 Unknown [id number] 2.16.8 [id number] 1970 Unknown [id number] 2.16.8 [id number] 1970 Unknown [id number] 2.16.8 [id number] 1970 Unknown [id number] 2.16.8 [id number] 1970 Unknown [id number] 2.16.8 [id number] 1970 Unknown [id number] 2.16.8 [id number] 1970 Unknown [id number] 2.16.8 [id number] 1970 Unknown [id number] 2.16.8 [id number] 1970 Unknown [id number] 2.16.8 [id number] 1970 Unknown [id number] 2.16.8 [id number] 1970 Unknown [id number] 2.16.84 [id number] 1970 Unknown [id number] 2.16.84 [id number] 1970 Unknown [id number] 2.16.84 [id number] 1959 Private Health Insurance [id number] Social History Date Type Detail Facility Start: 04-04-2023 Tobacco smoking status Heavy t obacco smoker (finding) [facility] [place] Tobacco smoking status Never [facility] [place] Start: 07-23-2023 Sex Assigned At Male F [facility] Start: 05-07-1985 [facility] [employer] Phone: Start: 05-07-1985 History of tobacco use Cigarette Smo ker [employer] Phone: Start: 07-23-2023 Cigarettes smoked current (pack per day) - Reported 1 [employer] Phone: Start: 07-23-2023 Tobacco use and exposure Smoke less tobacco non-user [employer] Phone: Start: 07-23-2023 Alcohol intake Current drinke r of alcohol (finding) [employer] Phone: Start: 07-23-2023 Alcohol Comment social [employer] Phone: Start: 1970 Sex Assigned At Not on file [facility] [place] Phone: Start: 08-21-2023 Tobacco smoking status Light t obacco smoker (finding) [facility] [place] Functional Status Date Assessment Result Facility 08-21-2023 Functional Status N/A [facility] 04-04-2023 Functional Status N/A [facility] Clinical Note 08-21-2023 Note Date & Type Note Facility 08-21-2023 Note Chief Complaint consultation for colonoscopy HPI Staff 53 year old male presents on self referral consultation for screening colonoscopy. Denies abdominal or rectal pain. No rectal bleeding or change in bowel habits. Denies nausea or vomiting. No unexplained weight loss. Never had colonoscopy in the past. No known family history of colon cancer. History of Present Illness 53 yo male with h/o migraines, hypothyroidism, trigeminal neuralgia, referred for colorectal screening; denies change in bms or blood in stools; no abdominal complaints; denies asa or NSAID use, no SBE prophylaxis; abdominal operations significant for LIHR x2 and RIHR x2, no previous colnoscopy; no fmhx of GI malignancy or IBD; no tobacco use. Review of Systems PHQ Score Initial Depression [...] in stool, no change in bowel habits, no abdominal pain, no hepatitis. Genitourinary: no kidney [...] noncontributory. Physical Exam Vitals & Measurements HR: 72(Peripheral) RR: 16 BP: 118/80 HT: 74 in HT: 188 cm WT: 103 kg WT: 226.6 lb BMI: 29.14 HEENT: normal conjunctiva, sclera clear, no scleral icterus, EOM intact, PERRLA, oral mucosa moist without lesions. Neck: trachea midline, no mass, symmetric, no thyromegaly or nodules, no adenopathy Respiratory: lungs CTA, respirations non labored. Cardiovascular: regular rate and rhythm, no murmur, no pedal edema or varicosities. Gastrointestinal: soft, non distended, no tenderness, no masses, no palpable hernias, diastasis recti no, no hepatosplenomegaly; normal bs Lymphatic: no cervical adenopathy, no supraclavicular adenopathy. Musculoskeletal: normal gait, digits and nails without infection, nodes, cyanosis, clubbing. Skin: no rashes, no lesions, no ulcers, no subcutaneous nodules, induration. Psychiatric/Neuro: oriented to time, place, person, judgement normal, affect appropriate for age, insight intact, no focal deficits. Tests: review of old records completed , Discussed surgical options, risks, and possible complications with patient. Assessment/Plan 1. Screening for malignant neoplasm of colon (Z12.11: Encounter for screening for malignant neoplasm of colon) plan colonoscopy under anesthesia, informed consent obtained. Follow-up No qualifying data available Problem List/Past Medical History Ongoing Anxiety and depression BMI 29.0-29.9,adult Hypothyroidism Migraines Over weight Recurrent left inguinal hernia Screening for malignant neoplasm of colon Smoker Tobacco use Trigeminal neuralgia Historical No qualifying data Procedure/Surgical History Repair of recurrent left inguinal hernia (05/16/2023), Repair of recurrent right inguinal hernia (06/13/2016), Repair of right inguinal hernia (04/14/2014), Excision of cyst, History of lumbar spine surgery, Repair of left inguinal hernia, Rotator cuff repair. Medications gabapentin 300 mg Cap Synthroid 175 mcg (0.175 mg) Tab, 175 mcg= 1 tab(s), Oral, Daily verapamil 80 mg Tab, 80 mg= 1 tab(s), Oral, Daily Allergies Eggs (Hives) No Known Medication Allergies Social History Alcohol - Denies Alcohol Use, 04/04/2023 Substance Abuse - Denies Substance Abuse, 04/04/2023 Tobacco 4 or less cigarettes(less than 1/4 pack)/day in last 30 days Tobacco Use:. Never Smokeless Tobacco Use:. Cigarettes, 0.25 per day. Started age 20.0 Years. Yes, 08/21/2023 Family History Primary malignant neoplasm of lung: Mother. Thyroid cancer: Father. Immunizations Vaccine Date Status Comments influenza virus vaccine, inactivated - Not Given Patient Refuses SARS-CoV-2 (COVID-19) mRNA-1273 vaccine 05/03/2021 Recorded SARS-CoV-2 (COVID-19) mRNA-1273 vaccine 04/05/2021 Recorded [facility] Comment on above: Result Comment: Elec tronically Signed By: ROMAINE COHEN, Binu Eddy\Date and Time Signed: 08/21/23 16:39 EDT Clinical Note 04-04-2023 Note Date & Type [...] E&M of New Patient Moderate 45-59 Min [id number] 2. Tobacco use (Z72.0: Tobacco use) We [...] E&M of New Patient Moderate 45-59 Min 18763 Follow-up No qualifying data available Problem List/Past [...] Oral, Daily Allergie (more content not included)... [facility] Comment on above: Result Comment: Elec tronically Signed By: ROMAINE COHEN, Binu Aguilar\.br\Date and Time Signed: 04/04/23 17:14 EST Evaluation + Plan note Note Date & Type Note Facility Evaluation + Plan note No data available for this section [facility] Evaluation + Plan note Note Date & Type Note Facility Evaluation + Plan note Future Appointments Appointment Date:06/13/2023 03:20:00 PM Scheduled Provider:Binu VARNER MD Location:[facility] Appointment Type: Post Op 15 General Surgery [employer] Evaluation note Note Date & Type Note Facility Evaluation note Diagnosis Cluster headache, not intractable, unspecified chronicity pattern Hypothyroidism, unspecified type documented in this encounter [employer] Phone: Evaluation note Note Date & Type Note Facility Evaluation note Diagnosis Cluster headache, not intractable, unspecified chronicity pattern Hypothyroidism, unspecified type Cervical spondylosis Cervical spondylosis without myelopathy documented in this encounter [employer] Phone: Hospital Discharge instructions Note Date & Type Note Facility Hospital Discharge instructions No data available for this section General Surgery [employer] Progress note Note Date & Type Note Facility Progress note No data available for this section General Surgery [employer] Summary Purpose Family History No Family History Records FoundNo Family History Records Found No data available for this section No data available for this section No Family History Records Found No data available for this section No Family History Records FoundNo Family History Records Found Advance Directives No Advanced Directives Records FoundNo Advanced Directives Records FoundNo Advanced Directives Records FoundNo Advanced Directives Records FoundNo Advanced Directives Records Found Additional Source Comments (unrecognized sect ion and content) No Status Records FoundNo Status Records FoundNo Status Records FoundNo Status Records FoundNo Status Records Found INFORMATION SOURCE (unrecogn ized section and content) DATE CREATED AUTHOR 07/06/2022 [facility] DATE CREATED AUTHOR AUTHOR'S ORGANIZ ATION 12/18/2022 [facility] DATE CREATED AUTHOR AUTHOR'S ORGANIZ ATION 08/02/2023 [facility] DATE CREATED AUTHOR AUTHOR'S ORGANIZ ATION 08/22/2023 [facility] DATE CREATED AUTHOR AUTHOR'S ORGANIZ ATION 08/28/2023 [facility] EPIC Patient Care team informatio n (unrecognized section and content) Technical Account Executive Relationship Specialty Start Date End Date Shaikh Fritz MD [address] [place] [address] PCP - General 07/05/23 Technical Account Executive Relationship Specialty Start Date End Date Shaikh Fritz MD [address] [place] [address] PCP - General 07/05/23 FOR RECORDS PERTAINING TO PATIENTS WHO ARE [...] BE BASED ON THE PRIMARY CLINICAL RECORDS. [facility]. provides no warranty or guarantee of the accuracy or completeness of information in this document.
[2023-08-31 18:51] LABS: Free T4 1.51 ng/dL (0.76-1.46)
== END 2023-08-31 16:44 | disposition home or self-care (01) ==
PROVIDERS: PCP Internal Medicine; Visit Provider Internal Medicine
DX: E03.9 Hypothyroidism, unspecified (principal)
CPT/HCPCS: 36415; 84439; 84443

== ENCOUNTER 2023-09-26 13:11 | Outpatient (OUT) | payer OTHER, SELFPAY | END 2023-09-26 13:12 | disposition home or self-care (01) | LOC: PST 13:12 | PROVIDERS: PCP Internal Medicine; Visit Provider Surgery | DX: Z01.818 Encounter for other preprocedural examination (principal); Z12.11 Encounter for screening for malignant neoplasm of colon ==

== ENCOUNTER 2024-04-21 16:47 | Outpatient (OUT) | payer OTHER, SELFPAY ==
[2024-04-21 17:52] LABS: TSH W/ REFLEX FT4 22.719 uIU/mL (0.358-3.740)
== END 2024-04-21 16:48 | disposition home or self-care (01) ==
LOC: LAB 16:48
DX: E03.9 Hypothyroidism, unspecified (principal)
CPT/HCPCS: 36415; 84439; 84443

== ENCOUNTER 2024-07-17 08:21 | Outpatient (OUT) | payer OTHER, SELFPAY ==
--- OUTSIDE RECORDS SUMMARY | 2024-07-17 08:32 | XMS_ITS | CCD ---
Author Organization [facility] Care Team Providers Care Export Clerk Name Role Phone HOUSE, DR MARSH Primary Care Unavailable MARKER ., DR CAIN Attending Unavailable MARKER ., DR CAIN Consulting Unavailable MARKER ., DR CAIN Admitting Unavailable Ivy COHEN, Tato Dixon Attending Unavailable [facility] Physician [phone] Catrina COHEN, [facility] Primary Care Provider [phone] NILIsrael, Binu Aguilar Attending Unavailable NILL, Binu Aguilar Attending Unavailable NILL, Binu Aguilar Attending Unavailable NILL, Binu Aguilar Attending Unavailable NILL, Binu Aguilar Attending Unavailable Paul Birch MD Primary Care Provider [phone] Alice TAIL RIPPER, Evelyn Unavailable Catrina COHEN, [facility] ALEC, JOHNATHAN Referring Unavailable [facility] Care Unavailable ALEC, JOHNATHAN Referring Unavailable ALEC, JOHNATHAN Referring Unavailable [facility] Care Unavailable ALEC, JOHNATHAN Referring Unavailable [facility] Care Unavailable ALEC, JOHNATHAN Referring Unavailable [facility] Care Unavailable [facility] Primary Care Unavailable ALEC, JOHNATHAN Referring Unavailable [facility] Care Unavailable ALEC, JOHNATHAN Referring Unavailable [facility] Care Unavailable ALEC, JOHNATHAN Referring Unavailable ALEC, JOHNATHAN Referring [facility]available [facility] Care Unavailable Catrina COHEN, Carroll Primary Care Provider Alice TAIL RIPPER, Evelyn Unavailable VIJAYA GRANADOS Attending Unavailable PABLO LAMB Attending Unavailable PABLO LAMB Referring Unavailable VIJAYA GRANADOS Attending Unavailable PABLO LAMB Attending Unavailable PABLO LAMB Attending Unavailable PABLO LAMB Attending Unavailable EVELYN JENKINS Attending Unavailabl e SHAIKH ENNIS Attending Unavailable SHAIKH ENNIS Attending Unavailable EVELYN JENKINS Attending Unavailabl e Allergies Allergy Classification Reported Allergen(s) Allergy Type Date of Onset Reaction(s) Facility (1 source) egg extract Drug Allergy 4 [facility] Repository (4 sources) Egg; Translations: [Eggs] Propensity to adverse reactions to food [place] (disorder) [facility] [place] (1 source) Eggs Or Egg-Derived Products Propensity to adverse reactions to drug 4 Hives [place] (20 sources) Egg-Derived Products Propensity to adverse reactions to drug 4 Hives [place] (1 source) No Known Medication Allergies; Translations: [No Known Medication Allergies] Propensity to adverse reactions (disorder) [facility] Repository (9 sources) Amoxicillin-Pot Clavulanate Propensity to adverse reactions 5 Rash [facility] NEGATED: Highlighted row has been ruled out! (1 source) Drug allergy [facility] [place] NEGATED: Highlighted row has been ruled out! (1 source) Drug allergy [facility] [place] NEGATED: Highlighted row has been ruled out! (1 source) Drug allergy [facility] [place] Medications Current Medications Medication Drug Class(es) Dates Sig (Normalized) Sig (Original) acetaminophen 500 mg oral tablet (3 sources) take 2 tablets by mouth every six hours as needed for pain acetaminophen (TYLENOL) 500 MG tablet Take 2 tablets by mouth every 6 hours as needed for Pain Active acetaminophen 250 mg / aspirin 250 mg / caffeine 65 mg oral tablet (3 sources) Platelet Aggregation Inhibitor, Nonsteroidal Anti-inflammatory Drug, Central Nervous System Stimulant, Methylxanthine take 2 tablets by mouth every six hours as needed for headache aspirin-acetaminop hen-caffeine (EXCEDRIN MIGRAINE) 250-250-65 MG per tablet Take 2 tablets by mouth every 6 hours as needed for Headaches Active ascorbic acid 250 mg oral tablet (3 sources) Vitamin C take 1 tablet by mouth once daily Ascorbic Acid (VITAMIN C) 250 MG tablet Take 1 tablet by mouth daily Active celecoxib 200 mg oral capsule (6 sources) Nonsteroidal Anti-inflammatory Drug Start: 03-04-2024 End: 04-03-2024 take 1 capsule by mouth in the morning celecoxib (CeleBREX) 200 MG capsule Indications: Bilateral foot pain Take 1 capsule (200 mg) by mouth in the morning and 1 capsule (200 mg) before bedtime. 60 capsule 03/04/2024 04/03/2024 Active gabapentin 300 mg oral capsule (5 sources) Anti-epileptic Agent Start: 03-21-2023 gabapentin 300 mg Cap as diretced, Refills(s) 0 Start Date: 03/21/23 Status: Ordered naproxen sodium 220 mg oral capsule (13 sources) Nonsteroidal Anti-inflammatory Drug Naproxen Sodium 220 MG capsule Take 2 capsules by mouth Active sertraline 50 mg oral tablet (2 sources) Serotonin Reuptake Inhibitor Start: 07-15-2024 sertraline (Zoloft) 50 MG tablet Indications: Anxiety and depression (CMS/HCC) Start with 1/2 pill daily for 7 days, then increase to 1 pill daily 30 tablet 1 07/15/2024 Active verapamil hydrochloride 120 mg oral tablet (20 sources) Calcium Channel Yovani Start: 03-10-2024 End: 11-05-2024 take 1 tablet by mouth at bedtime verapamil (Calan) 120 MG tablet Take 120 mg by mouth at bedtime 05/10/2024 Active Start: 12-13-2023 End: 07-01-2024 take 1 tablet by mouth once daily verapamil (Calan) 80 MG tablet Indications: Primary hypertension (CMS/HCC) Take 1 tablet (80 mg) by mouth Daily 90 tablet 1 01/03/2024 05/26/2024 Discontinued (Therapy completed) Start: 08-21-2023 take 1 tablet by yolis th once daily verapamil 80 mg Tab 80 mg = 1 tab(s), Oral, Daily, Refills(s) 0 Start Date: 08/21/23 Status: Ordered Start: 07-23-2023 End: 10-21-2023 take 1 tablet by mouth once daily verapamil (CALAN) 40 MG tablet Take 1 tablet by mouth nightly 30 tablet 2 07/23/2023 10/21/2023 Active Completed/Discontinued Medications Medication Drug Class(es) Dates Sig (Normalized) Sig (Original) amoxicillin 875 mg / clavulanate 125 mg oral tablet (4 sources) Penicillin-class Antibacterial Start: 05-26-2024 End: 06-09-2024 take 1 tablet by mouth in the morning amoxicillin-clavul anate (Augmentin) 875-125 MG tablet Indications: Acute non-recurrent maxillary sinusitis Take 1 tablet (875 mg) by mouth in the morning and 1 tablet (875 mg) before bedtime. Do all this for 10 days. Take with food. 20 tablet 05/26/2024 06/09/2024 Discontinued levothyroxine sodium 0.175 mg oral tablet (20 sources) l-Thyroxine Start: 04-23-2024 End: 07-15-2025 take 1 tablet by mouth once daily levothyroxine (Synthroid, Levoxyl) 175 MCG tablet Indications: Hypothyroidism, unspecified type (CMS/HCC) Take 1 tablet (175 mcg) by mouth Daily 30 tablet 11 04/23/2024 07/14/2024 Discontinued (Reorder) Start: 09-03-2023 End: 04-23-2024 take 1 tablet by mouth before mealtime levothyroxine (Synthroid) 150 MCG tablet Indications: Hypothyroidism, unspecified type (CMS/HCC) Take 1 tablet (150 mcg) by mouth in the morning. Take before meals. 90 tablet 01/03/2024 04/23/2024 Discontinued (Dose adjustment) Start: 08-21-2023 take 1 tablet by yolis th once daily Synthroid 175 mcg (0.175 mg) [...] Refills(s) 0 Start Date: 03/21/23 Status: Ordered methylPREDNISolone (5 sources) Corticosteroid Start: 07-03-2024 End: 07-15-2024 methylPREDNISolone (Medrol Dospak) 4 MG tablets Indications: Trigeminal neuralgia (CMS/HCC) Follow schedule on package instructions 21 tablet 07/03/2024 07/15/2024 Discontinued (Therapy completed) Start: 07-03-2024 End: 07-10-2024 methylPREDNISolone (Medrol D ospak) 4 MG tablets Indications: Trigeminal neuralgia (CMS/HCC) Follow schedule on package instructions 21 tablet 07/03/2024 07/10/2024 Active Problems Active Problems Problem Classification Problem Date Documented Date Episodic/Chronic Acquired foot deformities (2 sources) Acquired deformity of toe of left foot; Translations: [Acquired deformities of toe(s), unspecified, left foot] 03-20-2024 Episodic Anxiety disorders (7 sources) Mixed anxiety and depressive disorder; Translations: [Anxiety disorder, unspecified] Onset: 07-15-2024 03-21-2023 Chronic Essential hypertension (20 sources) Essential hypertension; Translations: [Essential (primary) hypertension] Onset: 08-27-2023 08-27-2023 Chronic Headache; including migraine (20 sources) Migraine; Translations: [Cluster headache] Onset: 07-23-2023 03-21-2023 Chronic Headache; including migraine (4 sources) Headache; including migraine; Translations: [HEADACHE UNSPECIFIED] Onset: 07-04-2022 Heart valve disorders (14 sources) Heart murmur; Translations: [Cardiac murmur, unspecified] Onset: 05-26-2024 05-26-2024 Episodic Menopausal disorders (1 source) Hormone replacement therapy; Translations: [HORMONE REPLACEMENT THERAPY] Onset: 07-06-2022 Episodic Neoplasms of unspecified nature or uncertain behavior (2 sources) Neoplasm of uncertain behavior of skin; Translations: [Neoplasm of uncertain behavior of skin] 03-20-2024 Episodic Other acquired deformities (8 sources) Deformity of metatarsal; Translations: [Unspecified acquired deformity of left lower leg] 03-20-2024 Episodic Other acquired deformities (8 sources) Deformity of metatarsal; Translations: [Unspecified acquired deformity of right lower leg] 03-20-2024 Episodic Other acquired deformities (4 sources) Spondylolisthesis; Translations: [Spondylolisthesis, cervical region] Onset: 07-06-2024 07-06-2024 Episodic Other aftercare (1 source) Other fdc (current) drug therapy; Translations: [OTH SENIOR CARE CURRENT DRUG THERAPY] Onset: 07-06-2022 Episodic Other circulatory disease (1 source) Cerebral infarction; Translations: [Personal history of transient ischemic attack (TIA), and cerebral infarction without residual deficits] 03-10-2024 Episodic Other circulatory disease (4 sources) History of cerebrovascular accident without residual deficits; Translations: [Personal history of transient ischemic attack (TIA), and cerebral infarction without residual deficits] 06-09-2024 Episodic Other connective tissue disease (8 sources) Pain in left foot; Translations: [Pain in left foot] 03-20-2024 Episodic Other connective tissue disease (8 sources) Pain in right foot; Translations: [Pain in right foot] 03-20-2024 Episodic Other nervous system disorders (1 source) Trigeminal neuralgia; Translations: [TRIGEMINAL NEURALGIA] Onset: 07-06-2022 Episodic Other nervous system disorders (20 sources) Trigeminal neuralgia; Translations: [Trigeminal neuralgia] Onset: 05-28-2023 03-21-2023 Episodic Other nutritional; endocrine; and metabolic disorders (20 sources) Overweight; Translations: [Overweight] Onset: 07-04-2023 03-21-2023 Episodic Other nutritional; endocrine; and metabolic disorders (3 sources) Overweight in adulthood with body mass index of 25 or more but less than 30 04-04-2023 Episodic Residual codes; unclassified (1 source) Tobacco user; Translations: [Tobacco use] Onset: 04-04-2023 Episodic Screening and history of mental health and substance abuse codes (3 sources) Tobacco use and exposure - finding 04-04-2023 Chronic Skin and subcutaneous tissue infections (2 sources) Abscess of toe of right foot; Translations: [Cutaneous abscess of right foot] 03-20-2024 Episodic Spondylosis; intervertebral disc disorders; other back problems (3 sources) Cervical spondylosis; Translations: [Spondylosis without myelopathy or radiculopathy, cervical region] Onset: 07-23-2023 07-23-2023 Chronic Substance-related disorders (20 sources) Nicotine dependence, cigarettes, uncomplicated; Translations: [Smoker] Onset: 07-06-2022 Resolved: 07-15-2024 03-21-2023 Chronic Thyroid disorders (20 sources) Hypothyroidism; Translations: [Hypothyroidism, unspecified] Onset: 05-28-2023 03-21-2023 Chronic Unclassified (3 sources) Recurrent left inguinal hernia 04-04-2023 Unclassified (1 source) Patient encounter status 08-21-2023 Viral infection (8 sources) Verruca plantaris; Translations: [Plantar wart] 03-20-2024 Episodic Past or Other Problems Problem Classification Problem Date Documented Da te Episodic/Chronic Abdominal hernia (20 sources) Recurrent inguinal hernia; Translations: [Unilateral inguinal hernia, without obstruction or gangrene, recurrent] Onset: 04-04-2023 Episodic Mycoses (20 sources) Onychomycosis; Translations: [Tinea unguium] Onset: 03-04-2024 03-04-2024 Episodic Other circulatory disease (20 sources) Elevated blood-pressure reading without diagnosis of hypertension; Translations: [Elevated blood-pressure reading, without diagnosis of hypertension] Onset: 07-04-2023 Resolved: 08-27-2023 08-27-2023 Episodic Other circulatory disease (1 source) Personal history of transient ischemic attack (TIA), and cerebral infarction without residual deficits; Translations: [Personal history of transient ischemic attack (TIA), and cerebral infarction without residual deficits] Onset: 09-20-2023 Episodic Other connective tissue disease (20 sources) Pain in both feet; Translations: [Pain in right foot] Onset: 03-04-2024 03-04-2024 Episodic Other screening for suspected conditions (not mental disorders or infectious disease) (20 sources) Screening for malignant neoplasm of colon done; Translations: [Encounter for screening for malignant neoplasm of colon] Onset: 08-21-2023 Episodic Other upper respiratory infections (20 sources) Acute upper respiratory infection; Translations: [Acute upper respiratory infection, unspecified] Onset: 05-28-2023 Resolved: 07-03-2024 05-28-2023 Episodic Residual codes; unclassified (20 sources) Tobacco use and exposure - finding; Translations: [Tobacco use] Onset: 05-28-2023 Resolved: 07-15-2024 05-28-2023 Episodic Results Test Name Value Interpretation Reference Range Facility TSH W/REFLEX T4on 04-21-2024 Interpretation and review of laboratory results Abnormal [facility] TSH Qn 22.719 m[IU]/L High [facility] CRISTEL SCREEN WITH REFLEXon CRISTEL Screen, IFA Negative Normal Negative [facility] Comment on above: Order Comment: [facility] performed at: [facility], [employer] [facility], [address] [place] [address], , Station Supervisor: Eulogio Tapia MD PhD\X0D0A\[facility] Collection Date/Time: [id number]\X0D0A\[facility] Results Received Date/Time: [id number]\X0D0A\[facility] Reported Date/Time: [id number] Result Comment: \X0D 0A\CRISTEL IFA is a first line screen for detecting the\X0D0A\presence of up to approximately 150 autoantibodies in\X0D0A\various autoimmune diseases. A negative CRISTEL IFA result\X0D0A\suggests CRISTEL-associated autoimmune disease is not\X0D0A\present at this time, but is not definitive. If there\X0D0A\is high clinical suspicion for Sjogren's Syndrome,\X0D0A\testing for anti-SS-A/Ro antibody should be considered.\X0D0A\Anti-Ashlyn-1 antibody should be considered for clinically\X0D0A\suspected inflammatory myopathies.\X0D0A\ \X0D0A\AC-0: Negative\X0D0A\International Consensus on CRISTEL Patterns\X0D0A\[email or web address]\X0D0A\ \X0D0A\For additional information, please refer to\X0D0A\[email or web address]\X0D0A\ \X0D0A\(This link is being provided for informational/\X0D0A\educational purposes only.)\X0D0A\ Performed By: #### 2 55, [id number], [id number] #### [place] [id number] Ph. [phone] ANTI-DNA ANTIBODY, DOUBLE-ST RANDEDon 03-10-2024 DNA (ds) Antibody <1 Normal <=4 [facility] Comment on above: Order Comment: [facility] performed at: [employer], [employer], [address] [place] [address], , Station Supervisor: Eulogio Tapia MD PhD\X0D0A\[facility] Collection Date/Time: \X0D0A\[facility] Results Received Date/Time: \X0D0A\[facility] Reported Date/Time: Result Comment: \X0D 0A\ Value Interpretation\X0D0A\ \X0D0A\ or=10 IU/mL: Positive\X0D0A\ Performed By: #### 2 55, [id number], WCX603 #### [place] [address] Ph. [phone] C-Reactive Proteinon 024 CRP [Mass/Vol] mg/L 0.0 - 1.0 mg/dL [facility] CRP [Mass/Vol] mg/L Normal 0.0-1.[address] [facility] Comment on above: Performed By: #### 2 55, [id number], [id number] #### [place] [address] Ph. [phone] CARDIOLIPIN ANTIBODIES IGG A ND IGMon 03-10-2024 Cardiolipin Ab (IgG) <2.0 Normal <20.0 [facility] Comment on above: Order Comment: [facility] performed at: [employer], [employer], [address] [place] [address], , Station Supervisor: Eulogio Tapia MD PhD\X0D0A\[facility] Collection Date/Time: \X0D0A\[facility] Results Received Date/Time: [id number]\X0D0A\[facility] Reported Date/Time: Result Comment: \X0D 0A\Value Interpretation\X0D0A\----- \X0D0A\< 20.0 Antibody not detected\X0D0A\> or = 20.0 Antibody detected\X0D0A\ Performed By: #### O RD664, TSW821, ADH365 #### [place] [address] Ph. [phone] Cardiolipin Ab (IgM) 2.7 MPL-U/mL Normal <20.0 [facility] Comment on above: Order Comment: [facility] performed at: [facility], [employer] [facility], [address] [place] [address], , Station Supervisor: Eulogio Tapia MD PhD\X0D0A\[facility] Collection Date/Time: [id number]\X0D0A\[facility] Results Received Date/Time: [id number]\X0D0A\[facility] Reported Date/Time: Result Comment: \X0D 0A\Value Interpretation\X0D0A\----- \X0D0A\< 20.0 Antibody not detected\X0D0A\> or = 20.0 Antibody detected\X0D0A\ \X0D0A\ \X0D0A\The antiphospholipid antibody syndrome (APS) is a\X0D0A\clinical-pathologic correlation that includes a\X0D0A\clinical event (e.g. arterial or venous thrombosis,\X0D0A\ morbidity) and persistent positive\X0D0A\antiphospholipid antibodies (IgM, IgG Cardiolipin or\X0D0A\b2GPI antibodies greater than the 99th percentile;\X0D0A\or a lupus anticoagulant). International consensus\X0D0A\guidelines for APS suggest waiting at least 12 weeks\X0D0A\before retesting to confirm antibody persistence.\X0D0A\The Systemic Lupus International Collaborating Clinics\X0D0A\immunological classification criteria for systemic\X0D0A\lupus erythematosus (SLE) include testing for\X0D0A\isotype IgA, which has yet to be incorporated into\X0D0A\APS criteria. Low level antiphospholipid antibodies\X0D0A\may sometimes be detected in the setting of infection,\X0D0A\drug therapy or aging.\X0D0A\ \X0D0A\For additional information, please refer to\X0D0A\http://education.[employer]/faq/[email or web address]\X0D0A\( This link is being provided for informational/\X0D0A\educational purposes only.)\X0D0A\ Performed By: #### O RD664, JLX139, MZM869 #### [address] [address] Ph. [phone] Erythrocyte Sedimentation Ra elijah 03-10-2024 ESR (Bld) [Velocity] 12 mm/h Normal 0-20 [facility] Comment on above: Result Comment: The ESR varies with age. The maximum normal ESR at a given age is calculated using the formulas:Men: Age in years/2Women: (Age in years + 10)/2 Performed By: #### 2 55, UTP945, PAG122 #### [address] [address] Ph. [phone] HOMOCYSTEINE, SERUMon 2023 Homocysteine 15.4 umol/L High <11.4 [facility] Comment on above: Order Comment: [facility] performed at: [employer], [employer] [facility], [address] [place] [address], , Station Supervisor: Eulogio Tapia MD PhD\X0D0A\[facility] Collection Date/Time: [id number]\X0D0A\[facility] Results Received Date/Time: [id number]\X0D0A\[facility] Reported Date/Time: [id number] Result Comment: \X0D 0A\Homocysteine is increased by functional deficiency of\X0D0A\folate or vitamin B12. Testing for methylmalonic acid\X0D0A\differentiates between these deficiencies. Other causes\X0D0A\of increased homocysteine include renal failure, folate\X0D0A\antagonists such as methotrexate and phenytoin, and\X0D0A\exposure to nitrous oxide.\X0D0A\Micha Goldberg, et al. [employer] Med. 1999;131(5):331-9.\X0D0A\ Performed By: #### O RD664, MJS610, VQI850 #### [place] [id number] Ph. [phone] IMMUNOFIXATION, SERUMon JEY Interpretation SEE BELOW Normal [facility] Comment on above: Order Comment: [facility] performed at: [facility], [address] [place] [address], , Station Supervisor: Eulogio Tapia MD PhD\X0D0A\[facility] Collection Date/Time: [id number]\X0D0A\[facility] Results Received Date/Time: [id number]\X0D0A\[facility] Reported Date/Time: [id number] Result Comment: Norm al pattern.\X0D0A\No monoclonal proteins detected. Performed By: #### 2 55, PUW413, BTO192 #### [place] [id number] Ph. [phone] METHYLMALONIC ACID, SERUMon 03-10-2024 Methylmalonic Acid 125 nmol/L Normal 55-335 [facility] Comment on above: Order Comment: [facility] performed at: [employer], [address] [place], [place], , Station Supervisor: Eulogio Tapia MD PhD\X0D0A\[facility] Collection Date/Time: \X0D0A\[facility] Results Received Date/Time: [id number]\X0D0A\[facility] Reported Date/Time: Result Comment: \X0D 0A\Serum methylmalonic acid (MMA) levels are used to\X0D0A\diagnose and monitor several rare inborn errors of\X0D0A\metabolism, including methylmalonic aciduria. The\X0D0A\enzymatic conversion of MMA to succinic acid requires\X0D0A\vitamin B12 (adenosyl-cobalamin) as a cofactor. Serum\X0D0A\MMA levels are also used for assessing functional\X0D0A\vitamin B12 deficiency. Vitamin B12 is essential for\X0D0A\ neurodevelopment, particularly early in\X0D0A\. Undiagnosed maternal vitamin B12 deficiency\X0D0A\may be associated with adverse / outcomes,\X0D0A\such as neural tube defects and intrauterine growth\X0D0A\restriction.\X0D0A\ \X0D0A\[facility] utilized Multi-Modal Decomposition\X0D0A\(MMD) analysis to establish first and second trimester-\X0D0A\specific MMA reference intervals in , as given\X0D0A\below:\X0D0A\MMA, First trimester (<13 wks gestation): 58-167 nmol/L\X0D0A\MMA, Second trimester (13-23 wks gestation):\X0D0A\63-241 nmol/L\X0D0A\ \X0D0A\This test was developed and its analytical performance\X0D0A\characteristics have been determined by [facility]\X0D0[facility]. It has not been cleared or approved by the\X0D0A\FDA. This assay has been validated pursuant to the CLIA\X0D0A\regulations and is used for clinical purposes.\X0D0A\ Performed By: #### O RD664, BMS734, AGX081 #### [place] [id number] Ph. [phone] PROTEIN S ANTIGEN, TOTALon 05-10-2023 Protein S Antigen, Total 101 % normal Normal 70-140 [facility] Comment on above: Order Comment: [facility] performed at: [employer], [employer] [place], [address] [place] [address], , Station Supervisor: Eulogio Tapia MD PhD\X0D0A\[facility] Collection Date/Time: [id number]\X0D0A\[facility] Results Received Date/Time: [id number]\X0D0A\[facility] Reported Date/Time: [id number] Performed By: #### 1 777, [id number] #### [place] [address] Ph. [phone] Protein C, Activityon 2023 Protein C, Activity 99 % normal Normal 70-180 [facility] Comment on above: Order Comment: [facility] performed at: [employer], [employer] [place], [address] [place] [address], , Station Supervisor: Eulogio Tapia MD PhD\X0D0A\[facility] Collection Date/Time: [id number]\X0D0A\[facility] Results Received Date/Time: [id number]\X0D0A\[facility] Reported Date/Time: [id number] Performed By: #### 1 777, [id number] #### [place] [address] Ph. [phone] Sedimentation Rateon Sed Rate, Automated 12 [facility] Comment on above: The ESR varies with age. The maximum normal ESR at a given age is calculated using the formulas:Men: Age in years/2Women: (Age in years + 10)/2 [facility] BUN AND CREATININEon 024 Creatinine [Mass/Vol] 1.19 mg/dL Normal 0.66-1.25 [facility] Comment on above: Performed By: #### 2 55, CAX220, TVP055 #### [place] [id number] Ph. [phone] GFR/1.73 sq M.predicted among non-blacks MDRD (S/P/Bld) [Vol rate/Area] 73 mL/min/{1.73_m2} Normal >60 [facility] Comment on above: Result Comment: GFR calculated using CKD-EPI (2020) formula.\X0D0A\Stage 1 Kidney damage (e.g., protein in the urine) with normal GFR >=90\X0D0A\Stage 2 Kidney damage with mild decrease in GFR 60-89\X0D0A\Stage 3a Moderate decrease in GFR 45-59\X0D0A\Stage 3b Moderate decrease in GFR 30-44\X0D0A\Stage 4 Severe reduction in GFR 15-29\X0D0A\Stage 5 Kidney failure <15 Performed By: #### 2 55, IBS700, QPQ032 #### [place] [address] Ph. [phone] Urea nitrogen [Mass/Vol] 21 mg/dL High 9-20 [facility] Comment on above: Performed By: #### 2 55, WKQ005, VIC236 #### [place] [address] Ph. [phone] MRA HEAD W WO CONTRASTon MRA HEAD W WO CONTRAST RADRPT MRA HEAD W WO CONTRAST, 09/20/2023 3:31 PM EDT INDICATION: Cluster headache, not intractable, unspecified chronicity pattern TECH NOTES: Abnormal MRI, evaluate vasculature for stenosis/aneurysm 20ml multihance COMPARISON: Prior MRI of the head dated 07/31/2023 Technique: Multiplanar, multisequential [id number] MRA images of viejas of Méndez and upper cervical were obtained with contrast. 3-D reconstruction was performed. FINDINGS: The visualized portion of viejas of Méndez is unremarkable. The LILLIANA, MCA, STILL 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 and the vertebral and basilar arteries are unremarkable. There are patent posterior and anterior communicating arteries. No aneurysm or significant stenosis is noted. No significant stenosis at origin of the internal carotid arteries. Report electronically signed by: Dr. Tristian Cruz IMPRESSION: Normal MRA of the brain. STENOSIS REFERENCE: MILD = <50% stenosis. MODERATE = 50-69% stenosis. SEVERE = >70% stenosis. Abnormal MRI, evaluate vasculature for stenosis/aneurysm 20ml multihance Interpreted by: Tristian Cruz MD Signed by: Tristian Cruz MD 09/20/23 Final result Normal [facility] Insurance Correspondenceon 0 09-07-2023 Insurance Correspondence [id number]# 1.00TIFF Normal [facility] Consent for Procedure/Surger yon 08-22-2023 Consent for Procedure/Surgery [id number]#1 .00TIFF Normal [facility] Ambulatory Visit Summaryon 0 08-21-2023 Ambulatory Visit Summary WERNER OSPINA :1970 Visit Date:08/21/2023 Ambulatory Visit Instructions Your Diagnosis Screening for malignant neoplasm of colon Your Care Team Attending Physician - TELLY COHEN, Binu Aguilar Primary Care Physician - CATRINA COHEN, CARR[place] This Is Your Medications List Contact prescribing [...] for choosing us for your care. Normal [facility] Basic Metabolic Panelon 07-06 Calcium [Mass/Vol] 9.1 mg/dL Normal 8.4-10.2 [facility] Comment on above: Performed By: #### 2 55, GLP012, FML347 #### [place] [address] Ph. [phone] Chloride [Moles/Vol] 107 mmol/L Normal 98-107 [facility] Comment on above: Performed By: #### 2 55, BHH761, WWB421 #### [address] [address] Ph. [phone] CO2 [Moles/Vol] 24 mmol/L Normal 22-32 [facility] Comment on above: Performed By: #### 2 55, JLZ904, JDE411 #### [address] [address] Ph. [phone] Creatinine [Mass/Vol] 0.95 mg/dL Normal 0.66-1.25 [facility] Comment on above: Performed By: #### 2 55, GAG774, PTH262 #### [place] [address] Ph. [phone] GFR/1.73 sq M.predicted among non-blacks MDRD (S/P/Bld) [Vol rate/Area] 95 mL/min/{1.73_m2} Normal >60 [facility] Comment on above: Result Comment: GFR calculated using CKD-EPI (2020) formula.\X0D0A\Stage 1 Kidney damage (e.g., protein in the urine) with normal GFR >=90\X0D0A\Stage 2 Kidney damage with mild decrease in GFR 60-89\X0D0A\Stage 3a Moderate decrease in GFR 45-59\X0D0A\Stage 3b Moderate decrease in GFR 30-44\X0D0A\Stage 4 Severe reduction in GFR 15-29\X0D0A\Stage 5 Kidney failure <15 Performed By: #### 2 55, KTV399, LDB155 #### [address] [address] Ph. [phone] Glucose [Mass/Vol] 101 mg/dL High 65-100 [facility] Comment on above: Performed By: #### 2 55, JWW273, AHS129 #### [address] [address] Ph. [phone] Potassium [Moles/Vol] 3.7 mmol/L Normal 3.6-5.0 [facility] Comment on above: Performed By: #### 2 55, NHG061, MBB719 #### [address] [address] Ph. [phone] Sodium [Moles/Vol] 141 mmol/L Normal 135-145 [facility] Comment on above: Performed By: #### 2 55, ITX537, ZUU651 #### [address] [address] Ph. [phone] Urea nitrogen [Mass/Vol] 17 mg/dL Normal 9-20 [facility] Comment on above: Performed By: #### 2 55, XEM645, NPU773 #### [address] [address] Ph. [phone] MRI BRAIN W WO CONTRASTon MRI BRAIN W WO CONTRAST RADRPT EXAMINATION: MRI BRAIN W WO CONTRAST EXAM DATE: 07/31/2023 4:24 PM EDT TECHNIQUE: Brain + high-resolution cranial nerve survey protocol multisequence multiparametric MR acquisition before and after uneventful intravenous contrast administration. INDICATION: Cluster headache, not intractable, unspecified chronicity pattern COMPARISON: 07/06/2020 MRI, 03/25/[address] and CTA ____ FINDINGS: No fluid collection, hemorrhage or diffusion [...] T2 FLAIR hyperintensities. 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 Symmetric globus pallidus calcification. Age-appropriate CSF spaces. Major vascular flow voids are preserved. No pathologic enhancement. OTHER: No significant extraneous finding ____ Report electronically signed by: Dr. 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 Brady Mcclain [facility] Brady Mcclain MD - 07/24/2023 EXAM: XR CERVICAL SPINE [...] cervical spine without evidence for acute fracture [employer] Phone: XR Cervical spine 4 or 5 Vie wsOrdered By: Brady Mcclain on 07-24-2023 [email or web address] Phone: CRISTEL SCREEN WITH REFLEXon CRISTEL Screen, IFA Positive Abnormal Negative [facility] Comment on above: Order Comment: [facility] performed at: [employer], [employer] [facility], [address] [place] [address], , Station Supervisor: Eulogio Tapia MD PhD\X0D0A\[facility] Collection Date/Time: [id number]\X0D0A\[facility] Results Received Date/Time: [id number]\X0D0A\[facility] Reported Date/Time: Result Comment: \X0D 0A\CRISTEL IFA is a first line screen for detecting the\X0D0A\presence of up to approximately 150 autoantibodies in\X0D0A\various autoimmune diseases. A positive CRISTEL IFA result\X0D0A\is suggestive of autoimmune disease and reflexes to\X0D0A\titer and pattern. Further laboratory testing may be\X0D0A\considered if clinically indicated.\X0D0A\ \X0D0A\For additional information, please refer to\X0D0A\[email or web address]/[email or web address]\X0D0A\ \X0D0A\(This link is being provided for informational/\X0D0A\educational purposes only.)\X0D0A\ Performed By: #### 2 55, OYU342, VBJ363 #### [place] [address] Ph. [phone] CRISTEL, Titer and Patternon CRISTEL Pattern SEE BELOW Normal [facility] Comment on above: Order Comment: [facility] performed at: [employer], [employer] [facility], [address] [place] [address], , Station Supervisor: Eulogio Tapia MD PhD\X0D0A\[facility] Collection Date/Time: [id number]\X0D0A\[facility] Results Received Date/Time: [id number]\X0D0A\[facility] Reported Date/Time: [id number] Result Comment: Nucl ear, Speckled\X0D0A\ \X0D0A\Speckled pattern is associated with mixed connective\X0D0A\tissue disease (MCTD), systemic lupus erythematosus\X0D0A\(SLE), Sjogren's syndrome, dermatomyositis, and\X0D0A\systemic sclerosis/polymyositis overlap.\X0D0A\ \X0D0A\AC-2, 4, 5, 29: Speckled\X0D0A\International Consensus on CRISTEL Patterns\X0D0A\[email or web address]://[email or web address]/[email or web address]\X0D0A\ Performed By: #### 2 55, NHL333, LXO192 #### [address] [address] Ph. [phone] CRISTEL Titer 1:40 Abnormal Negative [facility] Comment on above: Order Comment: [facility] performed at: [employer], [facility], [address] [place] [address], , Station Supervisor: Eulogio Tapia MD PhD\X0D0A\[facility] Collection Date/Time: [id number]\X0D0A\[facility] Results Received Date/Time: [id number]\X0D0A\[facility] Reported Date/Time: [id number] Result Comment: \X0D 0A\A low level CRISTEL titer may be present in pre-clinical\X0D0A\autoimmune diseases and normal individuals.\X0D0A\ \X0D0A\Reference Range:\X0D0A\<1:40 Negative\X0D0A\1:40-1:80 Low Antibody Level\X0D0A\>1:80 Elevated Antibody Level Performed By: #### 2 55, RLP211, SWY531 #### [address] [address] Ph. [phone] Erythrocyte Sedimentation Ra elijah 07-23-2023 ESR (Bld) [Velocity] 1 mm/h Normal 0-20 [facility] Comment on above: Result Comment: The ESR varies with age. The maximum normal ESR at a given age is calculated using the formulas:Men: Age in years/2Women: (Age in years + 10)/2 Performed By: #### E SR #### [address] [address] Ph. [phone] Folateon 07-23-2023 Folate 4.64 ng/mL 2.76 - 20.00 ng/mL [facility] Comment on above: The normal range for adults (18-65) is 2.76->20.00 ng/mL. The normal range for folate deficient patients is 1.04-2.79 ng/mL. FOL 4.64 ng/mL Normal 2.76-20.00 [facility] Comment on above: Result Comment: The normal range for adults (18-65) is 2.76->20.00 ng/mL.\X0D0A\The normal range for folate deficient patients is 1.04-2.79 ng/mL. Performed By: #### 2 55, UQO112, ACS363 #### [address] [address] Ph. [phone] Free T4on 07-23-2023 Free T4 [Mass/Vol] 1.50 ng/dL Normal 0.78-2.19 [facility] Comment on above: Performed By: #### 2 55, JOO163, TWF581 #### [address] [address] Ph. [phone] No Panel Informationon 07-22 [facility] PROTEIN ELECTROPHORESIS, SER UMon 07-23-2023 Abnormal Protein Band 1 SEE BELOW Normal [facility] Comment on above: Order Comment: [facility] performed at: [facility], [facility], [address] [place] [address], , Station Supervisor: Eulogio Tapia MD PhD\X0D0A\[facility] Collection Date/Time: [id number]\X0D0A\[facility] Results Received Date/Time: [id number]\X0D0A\[facility] Reported Date/Time: Result Comment: No M Ricky detected.\X0D0A\ \X0D0A\ Reference Range: None Detected\X0D0A\ Performed By: #### 2 55, MJW715, RNA038 #### [address] [address] Ph. [phone] Albumin [Mass/Vol] 4.1 g/dL Normal 3.8-4.8 [facility] Comment on above: Order Comment: [facility] performed at: [employer], [employer], [address] [place] [address], , Station Supervisor: Eulogio Tapia MD PhD\X0D0A\[facility] Collection Date/Time: [id number]\X0D0A\[facility] Results Received Date/Time: [id number]\X0D0A\[facility] Reported Date/Time: Performed By: #### 2 55, VJH022, THZ911 #### [place] [address] Ph. [phone] Alpha 1 Globulin 0.3 g/dL Normal 0.2-0.3 [facility] Comment on above: Order Comment: [facility] performed at: [employer], [address] [place] [address], , Station Supervisor: Eulogio Tapia MD PhD\X0D0A\[facility] Collection Date/Time: [id number]\X0D0A\[facility] Results Received Date/Time: [id number]\X0D0A\[facility] Reported Date/Time: Performed By: #### 2 55, RQH280, HZG317 #### [place] [address] Ph. [phone] Alpha 2 Globulin 0.7 g/dL Normal 0.5-0.9 [facility] Comment on above: Order Comment: [facility] performed at: [employer], [address] [place] [address], Station Supervisor: Eulogio Tapia MD PhD\X0D0A\[facility] Collection Date/Time: [id number]\X0D0A\[facility] Results Received Date/Time: [id number]\X0D0A\[facility] Reported Date/Time: Performed By: #### 2 55, MLW870, YMI200 #### [place] [address] Ph. [phone] Beta 1 Globulin 0.5 g/dL Normal 0.4-0.6 [facility] Comment on above: Order Comment: [facility] performed at: [employer], [employer], [address] [place] [address], , Station Supervisor: Eulogio Tapia MD PhD\X0D0A\[facility] Collection Date/Time: \X0D0A\[facility] Results Received Date/Time: [id number]\X0D0A\[facility] Reported Date/Time: Performed By: #### 2 55, AVJ457, KWQ414 #### [place] [address] Ph. [phone] Beta 2 Globulin 0.3 g/dL Normal 0.2-0.5 [facility] Comment on above: Order Comment: [facility] performed at: [employer], [employer] [place], [address] [place] [address], , Station Supervisor: Eulogio Tapia MD PhD\X0D0A\[facility] Collection Date/Time: [id number]\X0D0A\[facility] Results Received Date/Time: [id number]\X0D0A\[facility] Reported Date/Time: Performed By: #### 2 55, LDE487, VEG184 #### [place] [address] Ph. [phone] Gamma Globulin 1.1 g/dL Normal 0.8-1.[address] [facility] Comment on above: Order Comment: [facility] performed at: [employer], [employer], [address] [place] [address], , Station Supervisor: Eulogio Tapia MD PhD\X0D0A\[facility] Collection Date/Time: \X0D0A\[facility] Results Received Date/Time: [id number]\X0D0A\[facility] Reported Date/Time: Performed By: #### 2 55, ZQL483, FYW300 #### [place] [address] Ph. [phone] Interpretation SEE BELOW Normal [facility] Comment on above: Order Comment: [facility] performed at: [employer], [employer], [address] [place] [address], , Station Supervisor: Eulogio Tapia MD PhD\X0D0A\[facility] Collection Date/Time: \X0D0A\[facility] Results Received Date/Time: [id number]\X0D0A\[facility] Reported Date/Time: Result Comment: Norm al Serum Protein\X0D0A\Electrophoresis Pattern. No abnormal protein bands\X0D0A\(M-protein) detected. Performed By: #### 2 55, GFT204, EBP571 #### [place] [address] Ph. [phone] Protein [Mass/Vol] 7.1 g/dL Normal 6.1-8.1 [facility] Comment on above: Order Comment: [facility] performed at: [employer], [address] [place] [address], , Station Supervisor: Eulogio Tapia MD PhD\X0D0A\[facility] Collection Date/Time: [id number]\X0D0A\[facility] Results Received Date/Time: [id number]\X0D0A\[facility] Reported Date/Time: Performed By: #### 2 55, NQU763, CKG852 #### [address] [address] Ph. [phone] Rheumatoid Factoron 07-23-19 24 Rheumatoid Factor Negative Negative [facility] RF Negative Normal Negative [facility] Comment on above: Performed By: #### 2 55, VGO675, RFE361 #### [place] [address] Ph. [phone] Sedimentation Rateon 024 Sed Rate 1 [facility] Comment on above: The ESR varies with age. The maximum normal ESR at a given age is calculated using the formulas:Men: Age in years/2Women: (Age in years + 10)/2 [facility] T4, Freeon 07-23-2023 Free T4 [Mass/Vol] 1.50 ng/dL 0.78 - 2. 19 ng/dL [facility] TSH Reflex FT4on 07-23-2023 TSH 0.168 mIU/mL Low 0.470-4.680 [facility] Comment on above: Performed By: #### 2 55, OSR706, EPH936 #### [place] [address] Ph. [phone] TSH with Reflexon 07-23-2023 Interpretation and review of laboratory results Abnormal [facility] TSH Qn 0.168 m[IU]/L Low [facility] Vitamin B12on 07-23-2023 Cobalamin (Vitamin B12) [Mass/Vol] 359 pg/mL 239 - 900 pg/mL [facility] Cobalamin (Vitamin B12) [Mass/Vol] 359 pg/mL Normal 239-900 [facility] Comment on above: Performed By: #### 2 55, ISP047, XTJ354 #### [address] [address] Ph. [phone] XR CERVICAL SPINE (4-5 VIEWS )on 07-23-2023 [...] Brady Mcclain MD 07/24/23 Final result Normal [facility] XR Cervical spine 4 or 5 Vie wson 07-23-2023 Radiology Study observation (narrative) [facility] [employer] Phone: XR TMJ BILATERALon 4 XR TMJ [...] Brady Mcclain MD 07/24/23 Final result Normal [facility] Ambulatory Visit Summaryon 0 06-13-2023 Ambulatory Visit Summary WERNER OSPINA Larry :1970 Visit Date:06/13/2023 Ambulatory Visit Instructions Your Care Team Attending Physician - TELLY COHEN, Binu Aguilar Primary Care Physician - CATRINA COHEN, This Is Your Medications List gabapentin (gabapentin [...] Follow-Up Appointments Sunday 3:40 PM EDT With: Binu VARNER MD Where: General Surgery Telly/Aviva David Simmons [facility] General Surgery Office/Clini c Noteon 06-13-2023 General [...] if problems/questions. Follow-up With When Contact Information TELLY COHEN, Binu Aguilar, [place] Only if needed [address] [place] [address]- Additional Instructions: Problem List/Past Medical History Ongoing [...] SARS-CoV-2 (COVID-19) mRNA-1273 vaccine 04/05/2021 Recorded Normal [facility] Comment on above: Result Comment: Elec tronically Signed By: TELLY COEHN, Binu Aguilar\.br\Date and Time Signed: 06/13/23 15:53 EST [employer] 05-31-2023 Forms [id number]#1 .00TIFF Normal [facility] Ambulatory Visit Summaryon 0 05-23-2023 Ambulatory Visit Summary WERNER OSPINA :1970 Visit Date:05/23/2023 Ambulatory Visit Instructions Your Care Team Attending Physician - Binu VARNER MD Primary Care Physician - SHAIKH ENNIS MD This Is Your Medications List gabapentin [...] to do next Scheduled Follow-Up Appointments Sunday 3:20 PM EST With: Binu VARNER MD Where: General Surgery Nill/Aviva Hernandez Normal [facility] General Surgery Office/Clini c Noteon 05-23-2023 General [...] SARS-CoV-2 (COVID-19) mRNA-1273 vaccine 04/05/2021 Recorded Normal [facility] Comment on above: Result Comment: Elec tronically Signed By: TELLY COHEN, Binu R\.br\Date and Time Signed: 05/23/23 16:12 EST Operative Reporton Operative Report [id number]#1. 00TIFF Normal [facility] [employer] 05-15-2023 Forms [id number]#1. 00TIFF Normal [facility] [employer] 05-11-2023 Forms [id number]#1 .00TIFF [facility] Consent for Procedure/Surger yon 04-05-2023 Consent for Procedure/Surgery [id number]#1 .00TIFF [facility] Facesheeton 04-05-2023 Facesheet [id number]#1 .00TIFF [facility] Ambulatory Visit Summaryon 1 06-04-2022 Ambulatory Visit Summary WERNER OSPINA :1970 Visit Date:04/04/2023 Ambulatory Visit Instructions Your Care Team Attending Physician - TELLY COHEN, Binu Aguilar Primary Care Physician - CATRINA COHEN, [facility] This Is Your Medications List Contact prescribing [...] for choosing us for your care. Normal [facility] RAD - Ultrasound Reporton RAD - Ultrasound Report [id number]#1 .00TIFF Normal [facility] Physician Referralon 023 Physician Referral [id number]#1 .00TIFF Normal [facility] Vital Signs Date Time Vital Sign Value Performing Clinician Faci lity 07-15-2024 15:110400 Body height 188 cm Vijaya Darwin TAIL RIPPER Work Phone: [facility] 07-15-2024 15:11-0400 Body mass index (BMI) [Ratio] 27.53 kg/m2 Vijaya Darwin TAIL [employer] Work Phone: [facility] 07-15-2024 15:11-0400 Body temperature 98.4 [degF] Vijaya Darwin TAIL [employer] Work Phone: [facility] 07-15-2024 15:11-0400 Body weight 97.25 kg Vijaya Darwin TAIL [employer]PER Work Phone: [facility] 07-15-2024 15:11-0400 Diastolic blood pressure 82 mm[Hg] Vijaya Darwin TAIL [employer]PER Work Phone: [facility] 07-15-2024 15:11-0400 Heart rate 81 /min Vijaya Darwin TAIL [employer]PER Work Phone: [facility] 07-15-2024 15:11-0400 Respiratory rate 18 /min Vijaya Darwin TAIL [employer]PER Work Phone: [facility] 07-15-2024 15:11-0400 SaO2% (BldA) [Mass fraction] 97 % Vijaya Granados TAIL [employer] Work Phone: [facility] 07-15-2024 15:11-0400 Systolic blood pressure 128 mm[Hg] Vijayayanira Guillenholz TAIL [employer]PER Work Phone: [facility] 07-03-2024 15:13-0500 Diastolic blood pressure 88 mm[Hg] Vijaya Mindyholz TAIL [employer]PER Work Phone: [facility] 07-03-2024 15:13-0500 Systolic blood pressure 130 mm[Hg] Vijaya Mindyholz TAIL RIPPER Work Phone: [facility] 07-03-2024 14:32-0500 Body mass index (BMI) [Ratio] 27.01 kg/m2 Vijayayanira Guillenholz TAIL [employer]PER Work Phone: [facility] 07-03-2024 14:32-0500 Body temperature 99 [degF] Vijaya Whitesidez TAIL RIPPER Work Phone: [facility] 07-03-2024 14:32-0500 Body weight 95.44 kg Vijayayanira Guillenholz TAIL [employer]PER Work Phone: [facility] 07-03-2024 14:32-0500 Heart rate 77 /min Vijayayanira Guillenholz TAIL [employer]PER Work Phone: [facility] 07-03-2024 14:32-0500 Respiratory rate 18 /min Vijayayanira Guillenholz TAIL [employer]PER Work Phone: [facility] 07-03-2024 14:32-0500 SaO2% (BldA) [Mass fraction] 96 % Vijayayanira Guillenholz TAIL [employer]PER Work Phone: [facility] 06-09-2024 15:15-0500 Body height 188 cm Evelyn Jenkins TAIL [employer]PER Work Phone: [facility] 06-09-2024 15:15-0500 Body mass index (BMI) [Ratio] 27.22 kg/m2 Evelyn Jenkins TAIL [employer] Work Phone: [facility] 06-09-2024 15:15-0500 Body temperature 98.2 [degF] Evelyn Jenkins TAIL [employer]PER Work Phone: [facility] 06-09-2024 15:15-0500 Body weight 96.16 kg Evelyn Jenkins TAIL [employer]PER Work Phone: [facility] 06-09-2024 15:15-0500 Diastolic blood pressure 80 mm[Hg] Evelyn Jenkins TAIL [employer]PER Work Phone: [facility] 06-09-2024 15:15-0500 Heart rate 69 /min Evelyn Jenkins TAIL [employer]PER Work Phone: [facility] 06-09-2024 15:15-0500 Respiratory rate 16 /min Evelyn Jenkins TAIL [employer]PER Work Phone: [facility] 06-09-2024 15:15-0500 Systolic blood pressure 116 mm[Hg] Evelyn Jenkins TAIL [employer]PER Work Phone: [facility] 05-26-2024 16:04-0500 Body mass index (BMI) [Ratio] 27.35 kg/m2 Vijaya Aichholz TAIL [employer] Work Phone: [facility] 05-26-2024 16:04-0500 Body temperature 98.71 [degF] Vijaya Aichholz TAIL [employer]PER Work Phone: [facility] 05-26-2024 16:04-0500 Body weight 96.62 kg Vijaya Aichholz TAIL [employer]PER Work Phone: [facility] 05-26-2024 16:04-0500 Diastolic blood pressure 84 mm[Hg] Vijaya Aichholz TAIL [employer]PER Work Phone: [facility] 05-26-2024 16:04-0500 Heart rate 67 /min Vijaya Aichholz TAIL [employer]PER Work Phone: [facility] 05-26-2024 16:04-0500 Respiratory rate 19 /min Vijaya Granados TAIL [employer]PER Work Phone: [facility] 05-26-2024 16:04-0500 SaO2% (BldA) [Mass fraction] 98 % Vijaya Granados TAIL [employer]PER Work Phone: [facility] 05-26-2024 16:04-0500 Systolic blood pressure 118 mm[Hg] Vijaya Granados TAIL [employer]PER Work Phone: [facility] 05-22-2024 11:12-0500 Body height 188 cm Pablo Brown DPM Work Phone: [facility] 05-22-2024 11:12-0500 Body mass index (BMI) [Ratio] 28.25 kg/m2 Pablo Brown DPM Work Phone: [facility] 05-22-2024 11:12-0500 Body weight 99.79 kg Pablo Brown DPM Work Phone: [facility] 05-22-2024 11:12-0500 Respiratory rate 18 /min Pablo Brown DPM Work Phone: [facility] 05-01-2024 08:59-0500 Body height 188 cm Pablo Brown DPM Work Phone: [facility] 05-01-2024 08:59-0500 Body mass index (BMI) [Ratio] 28.25 kg/m2 Pablo Brown DPM Work Phone: [facility] 05-01-2024 08:59-0500 Body weight 99.79 kg Pablo Brown DPM Work Phone: [facility] 05-01-2024 08:59-0500 Respiratory rate 16 /min Pablo Brown DPM Work Phone: [facility] 04-10-2024 15:33-0500 Body height 188 cm Pablo Brown DPM Work Phone: [facility] 04-10-2024 15:33-0500 Body mass index (BMI) [Ratio] 28.25 kg/m2 Pablo Lamb DPM Work Phone: [facility] 04-10-2024 15:33-0500 Body weight 99.79 kg Pablo Lamb DPM Work Phone: [facility] 04-10-2024 15:33-0500 Respiratory rate 16 /min Pablo Lamb DPM Work Phone: [facility] 03-20-2024 16:19-0500 Body height 188 cm Pablo Lamb DPM Work Phone: [facility] 03-20-2024 16:19-0500 Body mass index (BMI) [Ratio] 28.25 kg/m2 Pablo Lamb DPM Work Phone: [facility] 03-20-2024 16:19-0500 Body weight 99.79 kg Pablo Lamb DPM Work Phone: [facility] 03-20-2024 16:19-0500 Diastolic blood pressure 82 mm[Hg] Pablo Lamb DPM Work Phone: [facility] 03-20-2024 16:19-0500 Heart rate 88 /min Pablo Lamb DPM Work Phone: [facility] 03-20-2024 16:19-0500 Systolic blood pressure 133 mm[Hg] Pablo Lamb DPM Work Phone: [facility] 03-04-2024 15:25-0400 Body height 188 cm Evelyn Jenkins TAIL RIPPER Work Phone: [facility] 03-04-2024 15:25-0400 Body mass index (BMI) [Ratio] 27.73 kg/m2 Evelyn Jenkins TAIL RIPPER Work Phone: [facility] 03-04-2024 15:25-0400 Body temperature 96.6 [degF] Evelyn Jenkins TAIL RIPPER Work Phone: [facility] 03-04-2024 15:25-0400 Body weight 97.98 kg Evelyn Jenkins TAIL RIPPER Work Phone: [facility] 03-04-2024 15:25-0400 Diastolic blood pressure 84 mm[Hg] Evelyn Jenkins TAIL RIPPER Work Phone: [facility] 03-04-2024 15:25-0400 Heart rate 73 /min Evelyn Jenkins TAIL RIPPER Work Phone: [facility] 03-04-2024 15:25-0400 Respiratory rate 16 /min Evelyn Jenkins TAIL RIPPER Work Phone: [facility] 03-04-2024 15:25-0400 SaO2% (BldA) [Mass fraction] 98 % Evelyn Jenkins TAIL RIPPER Work Phone: [facility] 03-04-2024 15:25-0400 Systolic blood pressure 136 mm[Hg] Evelyn Jenkins TAIL RIPPER Work Phone: [facility] 08-21-2023 15:39-0400 Blood Pressure Location Binu NILL [facility] [place] 08-21-2023 15:39-0400 Diastolic blood pressure 80 mm[Hg] Binu NILL [facility] 08-21-2023 15:39-0400 Heart rate 72 /min Binu NILL [facility] [place] 08-21-2023 15:39-0400 Respiratory rate 16 /min Binu NILL [facility] [place] 08-21-2023 15:39-0400 Systolic blood pressure 118 mm[Hg] Binu NILL [facility] 04-04-2023 15:20-0500 Blood Pressure Location Binu NILL [facility] 04-04-2023 15:20-0500 Diastolic blood pressure 78 mm[Hg] Binu NILL [facility] 04-04-2023 15:20-0500 Heart rate 76 /min Binu VARNER [facility] [place] 04-04-2023 15:20-0500 Respiratory rate 16 /min Binu VARNER [facility] [place] 04-04-2023 15:20-0500 Systolic blood pressure 122 mm[Hg] Binu VARNER [facility] [place] Encounters Encounter Date Encounter Type Care Provider Facility Start: 07-15-2024 End: 07-15-2024 Office outpatient visit 25 minutes Vijaya Granados TAIL RIPPER Work Phone: [facility] Comment on above: Trigeminal neuralgia (CMS/HCC) (Primary Dx); Cigarette nicotine dependence without complication; Over weight; Intractable episodic cluster headache; Anxiety and depression (CMS/HCC) Start: 07-15-2024 End: 07-15-2024 Bamboo flowsheet Vijaya Granados TAIL RIPPER Work Phone: [facility] Start: 07-15-2024 End: 07-15-2024 Bamboo flowsheet Vijaya Darwin TAIL RIPPER Work Phone: [facility] Start: 07-06-2024 End: 07-06-2024 Orders Only Vijyaayanira Granados TAIL RIPPER Work Phone: [facility] Comment on above: Hypothyroidism, unsp ecified type (CMS/HCC) (Primary Dx) Start: 07-03-2024 End: 07-03-2024 Office outpatient visit 25 minutes Vijaya Darwin TAIL RIPPER Work Phone: [facility] Comment on above: Trigeminal neuralgia (CMS/HCC) (Primary Dx); Intractable episodic cluster headache; Primary hypertension (CMS/HCC); Tobacco use Start: 07-03-2024 End: 07-03-2024 ambulatory VIJAYA JOEHHOLiSmon Not Available Start: 07-03-2024 End: 07-03-2024 Bamboo flowsheet Vijaya Darwin TAIL RIPPER Work Phone: [facility] Start: 07-03-2024 End: 07-03-2024 Bamboo flowsheet Vijaya Granados TAIL RIPPER Work Phone: [facility] Start: 06-09-2024 End: 06-09-2024 Office outpatient visit 15 minutes Evelyn Floydzpatrick TAIL RIPPER Work Phone: [facility] Comment on above: History of CVA (cere brovascular accident) without residual deficits (Primary Dx); Hypothyroidism, unspecified type (CMS/HCC); Intractable episodic cluster headache Start: 06-09-2024 End: 06-09-2024 ambulatory EVELYN JENKINS Not Available Start: 06-09-2024 End: 06-09-2024 Bamboo flowsheet Evelyn Jenkins TAIL RIPPER Work Phone: [facility] Start: 06-09-2024 End: 06-09-2024 Bamboo flowsheet Evelyn Floydzpatrick TAIL RIPPER Work Phone: [facility] Start: 05-26-2024 End: 05-26-2024 Office outpatient visit 15 minutes Vijaya Granados TAIL RIPPER Work Phone: [facility] Comment on above: Acute non-recurrent maxillary sinusitis (Primary Dx); Primary hypertension (CMS/HCC); Hypothyroidism, unspecified type (CMS/HCC); Over weight; Murmur Start: 05-26-2024 End: 05-26-2024 ambulatory VIJAYA DARWIN Not Available Start: 05-26-2024 End: 05-26-2024 Bamboo flowsheet Vijaya Darwin TAIL RIPPER Work Phone: [facility] Start: 05-26-2024 End: 05-26-2024 Bamboo flowsheet Vijaya Darwin TAIL RIPPER Work Phone: [facility] Start: 05-22-2024 End: 05-22-2024 Bamboo flowsheet Pablo Lamb DPM Work Phone: [facility] Start: 05-22-2024 End: 05-22-2024 Bamboo flowsheet Pablo Lamb DPM Work Phone: [facility] Start: 05-22-2024 End: 05-22-2024 Office outpatient visit 15 minutes Pablo Lamb DPM Work Phone: [facility] Comment on above: Metatarsal deformity , left (Primary Dx); Verruca plantaris; Foot pain, left; Foot pain, right; Metatarsal deformity, right; Pain due to onychomycosis of toenails of both feet Start: 05-22-2024 End: 05-22-2024 ambulatory PABLO LAMB Not Available Start: 05-01-2024 End: 05-01-2024 Bamboo flowsheet Pablo Lamb DPM Work Phone: [facility] Start: 05-01-2024 End: 05-01-2024 Bamboo flowsheet Pablo Lamb DPM Work Phone: [facility] Start: 05-01-2024 End: 05-01-2024 Office outpatient visit 15 minutes Pablo Lamb DPM Work Phone: [facility] Comment on above: Metatarsal deformity , left (Primary Dx); Metatarsal deformity, right; Verruca plantaris; Foot pain, left; Foot pain, right Start: 05-01-2024 End: 05-01-2024 ambulatory PABLO LAMB Not Available Start: 04-23-2024 End: 04-23-2024 Orders Only Evelyn Jenkins TAIL RIPPER Work Phone: [facility] Comment on above: Hypothyroidism, unsp ecified type (CMS/HCC) (Primary Dx) Start: 04-21-2024 End: 04-21-2024 Clinisync Result Encounter Evelyn Jenkins TAIL RIPPER Work Phone: [facility] External Department Unsolicited Start: 04-21-2024 End: 04-21-2024 Clinisync Result Encounter Evelyn Jenkins TAIL RIPPER Work Phone: [facility] External Department Unsolicited Start: 04-10-2024 End: 04-10-2024 Patient encounter procedure Pablo Lamb DPM Work Phone: [facility] Comment on above: Metatarsal deformity , left (Primary Dx); Metatarsal deformity, right; Verruca plantaris; Foot pain, left; Foot pain, right Start: 04-10-2024 End: 04-10-2024 ambulatory PABLO LAMB Not Available Start: 04-10-2024 End: 04-10-2024 Bamboo flowsheet Pablo Lamb DPM Work Phone: [facility] Start: 04-10-2024 End: 04-10-2024 Bamboo flowsheet Pablo Lamb DPM Work Phone: [facility] Start: 03-20-2024 End: 03-20-2024 ambulatory PABLO LAMB Not Available Start: 03-20-2024 End: 03-20-2024 Office outpatient new 30 minutes Pablo Lamb DPM Work Phone: [facility] Comment on above: Acquired deformity o f left toe (Primary Dx); Bilateral foot pain; Fungal nail infection; Abscess of toe, right; Neoplasm of uncertain behavior of skin; Verruca plantaris; Foot pain, left; Foot pain, right; Metatarsal deformity, left; Metatarsal deformity, right; Pain due to onychomycosis of toenails of both feet Start: 03-20-2024 End: 03-20-2024 Bamboo flowsheet Pablo Lamb DPM Work Phone: [facility] Start: 03-20-2024 End: 03-20-2024 Bamboo flowsheet Pablo Lamb DPM Work Phone: [facility] Start: 03-10-2024 ambulatory [facility] Start: 03-10-2024 End: 03-10-2024 Subsequent hospital visit by physician Shaikh Catrina COHEN Work Phone: [facility] Comment on above: Cluster headache, no t intractable, unspecified chronicity pattern; Cervical spondylosis; Hypothyroidism, unspecified type; 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 Start: 03-04-2024 End: 03-04-2024 Office outpatient visit 15 minutes Evelyn Jenkins TAIL RIPPER Work Phone: [facility] Comment on above: Hypothyroidism, unsp ecified type (CMS/HCC) (Primary Dx); Primary hypertension (CMS/HCC); Bilateral foot pain; Fungal nail infection; Screening for colon cancer; Intractable episodic cluster headache Start: 03-04-2024 End: 03-04-2024 ambulatory EVELYN JENKINS Not Available Start: 03-04-2024 End: 03-04-2024 Bamboo flowsheet Evelyn Jenkins TAIL RIPPER Work Phone: [facility] Start: 03-04-2024 End: 03-04-2024 Bamboo flowsheet Evelyn Jenkins TAIL RIPPER Work Phone: [facility] Start: 01-02-2024 End: 01-03-2024 Refill Shasha Florian MA [facility] Comment on above: Hypothyroidism, unsp ecified type (CMS/HCC); Primary hypertension (CMS/HCC) Start: 12-03-2023 End: 12-03-2023 ambulatory SHAIKH CATRINA Not Available Start: 09-20-2023 ambulatory CARROLL CATRINA [facility] Start: 08-27-2023 End: 08-27-2023 ambulatory SHAIKH CATRINA Not Available Start: 08-21-2023 End: 08-22-2023 ambulatory Binu VARNER Facility:[facility] Start: 08-21-2023 End: 08-21-2023 Patient encounter procedure Binu VARNER General Surgery [facility] Start: 07-31-2023 ambulatory SHAIKH CATRINA [facility] Start: 07-23-2023 [facility] Start: 07-23-2023 End: 07-25-2023 Subsequent hospital visit by physician [facility] X[facility] Comment on above: Cluster headache, no t intractable, unspecified chronicity pattern; Hypothyroidism, unspecified type Cluster headache, no t intractable, unspecified chronicity pattern; Hypothyroidism, unspecified type; Cervical spondylosis Start: 06-13-2023 End: 06-14-2023 ambulatory Binu R NILL Facility: [place] Start: 05-29-2023 Patient encounter status [facility] Start: 05-23-2023 End: 05-24-2023 ambulatory Binu R NILL Facility: [place] Start: 05-23-2023 End: 05-23-2023 Patient encounter procedure Binu R NILL General Surgery Nill/Said [place] Start: 05-16-2023 End: 05-17-2023 ambulatory Binu R NILL Facility:[id number] Start: 04-04-2023 End: 04-05-2023 ambulatory Binu R NILL Facility: [place] Start: 04-04-2023 End: 04-04-2023 Patient encounter procedure Binu R NILL General Surgery Nill/Said [facility] Start: 02-26-2023 ambulatory Binu NILL Facility:[facility] Start: 12-21-2022 ambulatory Tato Haynes MD Fac ility:[facility] Start: 07-04-2022 End: 07-05-[address] SALMA MOHR Facility:[facility] Procedures Date Procedure Procedure Detail Performing Clinician Start: 04-21-2024 TSH W/REFLEX T4 Brittan y Jenkins TAIL RIPPER Work Phone: Start: 03-10-2024 C-reactive protein Anna Bourne MD Work Phone: Start: 03-10-2024 Sedimentation rate r bc automated Johnathan Bourne MD Work Phone: Start: 07-23-2023 Radex spine cervical 4 or 5 views Johnathan Bourne MD Work Phone: Start: 07-23-2023 Cyanocobalamin vitamin b-12 Johnathan Bourne MD Work Phone: Start: 07-23-2023 Rheumatoid factor quantitative Johnathan Bourne MD Work Phone: Start: 05-16-2023 Repair of recurrent left inguinal hernia Binu NILL Start: 06-13-2016 Repair of recurrent right inguinal hernia Binu NILL Start: 04-14-2014 Repair of right ingu inal hernia Binu NILL Excision of cyst Binu NIL L Comment on above: pilar History of operative procedure on lumbar spinal structure Binu NILL Repair of left ingui nal hernia Binu NILL Repair of musculoten dinous cuff of shoulder Binu NILL Plan of Treatment Date Care Activity Detail Author Start: 11-03-2024 Influenza vaccination Influenza Vacc ine (#1) [facility] Comment on above: Postponed from 01/05 (Patient Refused) Start: 10-08-2024 End: 10-08-2024 Patient encounter procedure 10/08/2024 2:30 PM EDT Office Visit [facility] Providers on [place] [id number] Johnathan Bourne MD [address] [place] [phone] 7 mo f/u; increase Verapamil, PRN O2 [facility] Providers on [facility] Comment on above: 7 mo f/u; increase V erapamil, PRN O2 Start: 09-08-2024 End: 09-08-2024 Patient encounter procedure [facility] Start: 08-27-2024 End: 08-27-2024 Patient encounter procedure 08/27/2024 3:20 PM EDT Office Visit [facility] [address] [place] [phone] Vijaya Granados NP [address] [place] [phone] [facility] Start: 07-15-2024 End: 07-15-2024 Patient encounter procedure [facility] Comment on above: Trigeminal neuralgia (CMS/HCC) (Primary Dx); Cigarette nicotine dependence without complication; Over weight; Intractable episodic cluster headache Start: 07-06-2024 End: 07-06-2025 Thyrotropin [Units/volume] in Serum or Plasma TSH Lab Routine Hypothyroidism, unspecified type (CMS/HCC) Expected: 07/06/2024 (Approximate), Expires: 07/06/2025 [facility] Work Phone: Comment on above: Expected: 07/06/2024 (Approximate), Expires: 07/06/2025 Start: 07-06-2024 End: 07-06-2025 Thyroxine (T4) free [Mass/volume] in Serum or Plasma T4, free Lab Routine Hypothyroidism, unspecified type (CMS/HCC) Expected: 07/06/2024 (Approximate), Expires: 07/06/2025 [facility] Comment on above: Expected: 07/06/2024 (Approximate), Expires: 07/06/2025 Start: 07-03-2024 End: 07-03-2024 Patient encounter procedure 07/03/2024 2:20 PM EST Office Visit [facility] [address] [place] [phone] Vijaya Granados, CARLOS [address] [place] [phone] Arrived [facility] Comment on above: Arrived Start: 06-12-2024 End: 06-12-2024 Patient encounter procedure 06/12/2024 3:30 PM EST Office Visit [facility] [address] [place] [address] Pablo Lamb DPM [address] [facility] [address] [place] [address] [facility] Start: 06-09-2024 End: 06-09-2024 Patient encounter procedure 06/09/2024 3:30 PM EST Office Visit [facility] [address] [place] [address] Evelyn Jenkins, TAIL RIPPER [address] [place] [address] Arrived [facility] Comment on above: Arrived Start: 06-02-2024 End: 06-02-2024 Patient encounter procedure 06/02/2024 3:00 PM EST Office Visit [facility] [address] [place] [address] Evelyn Jenkins, TAIL RIPPER [address] [place] [address] [facility] Start: 05-26-2024 End: 05-26-2024 Patient encounter procedure 05/26/2024 4:15 PM EST Office Visit [facility] [address] [place] [address] Vijaya Granados NP [address] [place] [address] Arrived [facility] Comment on above: Arrived Start: 05-22-2024 End: 05-22-2024 Patient encounter procedure 05/22/2024 11:40 AM EST Office Visit [facility] [address] [place] [phone] Pablo Lamb DPM [address] [address] Verruca plantaris (Primary Dx); Foot pain, left; Foot pain, right; Metatarsal deformity, left; Metatarsal deformity, right [facility] Comment on above: Verruca plantaris (P rimary Dx); Foot pain, left; Foot pain, right; Metatarsal deformity, left; Metatarsal deformity, right Start: 05-01-2024 End: 05-01-2024 Patient encounter procedure [facility] Comment on above: Metatarsal deformity , left (Primary Dx); Metatarsal deformity, right; Verruca plantaris; Foot pain, left; Foot pain, right Start: 04-23-2024 End: 04-23-2025 TSH W/REFLEX TO FT4 TSH W/REFLEX TO FT4 Lab Routine Hypothyroidism, unspecified type (CMS/HCC) Expected: 04/23/2024 (Approximate), Expires: 04/23/2025 [facility] Work Phone: Comment on above: Expected: 04/23/2024 (Approximate), Expires: 04/23/2025 Start: 04-10-2024 End: 04-10-2024 Patient encounter procedure [facility] Comment on above: Acquired deformity o f left toe (Primary Dx); Abscess of toe, right; Metatarsal deformity, left; Metatarsal deformity, right; Verruca plantaris; Foot pain, left; Foot pain, right Start: 03-04-2024 End: 03-04-2024 Patient encounter procedure [facility] Comment on above: Arrived Start: 03-04-2024 End: 03-04-2025 Noninvasive colorectal cancer DNA and occult blood screening [Presence] in Stool Cologuard colon cancer screening Lab Routine Screening for colon cancer Expected: 03/04/2024 (Approximate), Expires: 03/04/2025 [facility] Comment on above: Expected: 03/04/2024 (Approximate), Expires: 03/04/2025 Start: 03-04-2024 End: 03-04-2025 TSH W/REFLEX TO FT4 TSH W/REFLEX TO FT4 Lab Routine Hypothyroidism, unspecified type (CMS/HCC) Expected: 03/04/2024 (Approximate), Expires: 03/04/2025 [facility] Work Phone: Comment on above: Expected: 03/04/2024 (Approximate), Expires: 03/04/2025 Start: 01-06-2024 COVID-19 Vaccine ( season) COVID-19 Vaccine ( season) [facility] Start: 01-06-2024 Influenza vaccination Influenza Vacc ine (#1) [facility] Start: 12-06-2023 Influenza vaccination Flu vaccine (# 1) [facility] Start: 09-10-2023 End: 09-10-2023 Patient encounter procedure 09/10/2023 10:30 AM EDT Office Visit [facility] Providers on [address] [address] Johnathan Bourne MD [address] [place], [place] [phone] 9 week follow Cluster Headache; DME O2, MRI, Labs, XR, start Verapamil [facility] Providers on [facility] Comment on above: 9 week follow Cluste r Headache; DME O2, MRI, Labs, XR, start Verapamil Start: 07-31-2023 End: 07-31-2023 Patient encounter procedure 07/31/2023 3:30 PM EDT Appointment [facility] [address] [place] [address] Cluster headache [facility] Comment on above: Cluster headache Start: 12-05-2022 Influenza vaccination Flu vaccine (# 1) [facility] Start: 01-12-2020 Screening for malign ant neoplasm of lung [facility] Start: 01-12-2020 Shingles vaccine (1 of 2) Bui gles vaccine (1 of 2) [facility] Start: 2015 Screening for malign ant neoplasm of colon [facility] Start: 2010 Lipid panel Lipids [facility] Start: 2005 Diabetes screen Diabetes screen [facility] Start: 1989 DTaP/Tdap/Td vaccine (1 - Tdap) DTaP/Tdap/Td vaccine (1 - Tdap) [facility] Start: 1989 Hepatitis B vaccine (1 of 3 - 19+ 3-dose series) Hepatitis B vaccine (1 of 3 - 19+ 3-dose series) [facility] Start: 01-12-1988 Hepatitis C screening Hepatitis [facility] sc [facility] Start: 1985 [facility]: 1982 Depression Screen [facility] Start: 01-12-1976 Pneumococcal 0-64 ye ars Vaccine (1 of 2 - PCV) Pneumococcal 0-64 years Vaccine (1 of 2 - PCV) [facility] Start: 1970 COVID-19 Vaccine (#1) COVID-19 Vacci ne (#1) [facility] Start: 1970 Hepatitis B vaccine (1 of 3 - 3-dose series) Hepatitis B vaccine (1 of 3 - 3-dose series) [facility] Start: 1970 Screening for malign ant neoplasm of colon [facility] End: 07-23-2023 CRISTEL Screen with Reflex [facility] Work Phone: Comment on above: 1 Occurrences starti ng 07/23/2023 until 07/23/2023 End: 03-10-2024 CRISTEL Screen with Reflex [facility] Work Phone: Comment on above: 1 Occurrences starti ng 03/10/2024 until 03/10/2024 End: 03-10-2024 Anti-DNA Antibody, Double-Stranded [facility] Work Phone: Comment on above: 1 Occurrences starti ng 03/10/2024 until 03/10/2024 End: 03-10-2024 Cardiolipin Antibodies IgG & IgM [facility] Work Phone: Comment on above: 1 Occurrences starti ng 03/10/2024 until 03/10/2024 End: 07-23-2023 Electrophoresis Protein, Serum [facility] Work Phone: Comment on above: 1 Occurrences starti ng 07/23/2023 until 07/23/2023 End: 03-10-2024 Homocysteine [facility] Work Phone: Comment on above: 1 Occurrences starti ng 03/10/2024 until 03/10/2024 End: 03-10-2024 Immunofixation serum profile [facility] Work Phone: Comment on above: 1 Occurrences starti ng 03/10/2024 until 03/10/2024 End: 03-10-2024 Methylmalonic Acid, Serum [facility] Work Phone: Comment on above: 1 Occurrences starti ng 03/10/2024 until 03/10/2024 End: 03-10-2024 Protein C Activity [facility] Work Phone: Comment on above: 1 Occurrences starti ng 03/10/2024 until 03/10/2024 End: 03-10-2024 Protein S Antigen, Total Protein S Antigen, Total Lab Routine Once for 1 Occurrences starting 03/10/2024 until 03/10/2024 [facility] Work Phone: Comment on above: Once for 1 Occurrenc es starting 03/10/2024 until 03/10/2024 Immunizations Immunization Date Immunization Notes Care Provider Fa cility 05-03-2021 SARS-CoV-2 (COVID-19 ) mRNA-1273 vaccine Binu VARNER [facility] 04-05-2021 SARS-CoV-2 (COVID-19 ) mRNA-1273 vaccine Binu VARNER [facility] NEGATED: Highlighted row has not occurred!04-04-2023 influenza virus vaccine, unspecified formulation Binu VARNER [facility] Payers Date Payer Category Payer Managed Care HMO (unspecified) [id number] 1970 Unknown [id number] 2.16.84 [id number] 1970 Unknown [id number] 2.16.840.1.272649.3.579.2.727 1970 Unknown [id number] 2.16.840.1.108625.3.579.2.727 1970 Unknown [id number] 2.16.840.1.491556.3.579.2.727 1970 Unknown [id number] 2.16.840.1.218610.3.579.2.727 1970 Unknown [id number] 2.16.840.1.084295.3.579.2.727 1970 Unknown [id number] 2.16.840.1.430296.3.579.2.754 1970 Unknown [id number] 2.16.840.1.530729.3.579.2.75 1970 Unknown [id number] 2.16.840.1.149311.3.579.2.75 1970 Unknown [id number] 2.16.840.1.011649.3.579.2.754 1970 Unknown [id number] 2.16.840.1.722828.3.579.2. 1970 Unknown [id number] 2.16.840.1.990616.3.579.2.754 1970 Unknown [id number] 2.16.840.1.555642.3.579.2.75 1970 Unknown [id number] 2.16.840.1.894786.3.579.2.754 1970 Unknown [id number] 2.16.840.1.647053.3.579.2.75 1970 Unknown [id number] 2.16.840.1.522832.3.579.2.1259 1970 Unknown [id number] 2.16.840.1.054644.3.579.2.1259 1970 Unknown [id number] 2.16.840.1.574131.3.579.2.9 1970 Unknown [id number] 2.16.840.1.342846.3.579.2.1258 1970 Unknown [id number] 2.16.840.1.843307.3.579.2.1258 1970 Unknown [id number] 2.16.840.1.547646.3.579.2.1258 1970 Unknown [id number] 2.16.840.1.592698.3.579.2.1258 1970 Unknown [id number] 2.16.840.1.913576.3.579.2.1258 1970 Unknown [id number] 2.16.840.1.766982.3.579.2.1258 1970 Unknown [id number] 2.16.840.1.337918.3.579.2.9 1959 Private Health Insurance [id number] Social History Date Type Detail Facility Start: 04-04-2023 Tobacco smoking status Heavy t obacco smoker (finding) [facility] Tobacco smoking status Never [facility] [place] Start: 07-23-2023 End: 07-03-2024 Sex Assigned At Male [facility] Start: 07-23-2023 End: 12-03-2023 Tobacco smoking status [facility] Smokes tobacco daily [employer] Phone: Start: 05-07-1985 History of tobacco use Cigarette Smo ker [facility] Work Phone: Start: 07-23-2023 End: 07-03-2024 Cigarettes smoked current (pack per day) - Reported 1 [employer] Phone: Start: 07-23-2023 End: 12-03-2023 Tobacco use and exposure Smokeless tobacco non-user [employer] Phone: Start: 07-23-2023 End: 09-10-2023 Alcohol intake Current drinker of alcohol (finding) [employer] Phone: Start: 07-23-2023 Alcohol Comment social [facility] Work Phone: Start: 1970 Sex Assigned At Not on file [facility] Work Phone: Start: 08-21-2023 Tobacco smoking status Light t obacco smoker (finding) [facility] Start: 12-03-2023 End: 07-15-2024 Alcoholic beverage intake Lifetime non-drinker (finding) [facility] Start: 05-28-2023 Alcohol Comment caffeine: 2-3 cups per day [facility] Do you belong to any clubs or organizations such as roman catholic groups, unions, fraternal or athletic groups, or school groups? No [facility] Are you now , , , , never or living with a partner? [facility] How often to you hav e a drink containing alcohol? 2-4 times a month [facility] How many standard dr inks containing alcohol do you have on a typical day? 7 to 9 [facility] How often do you hav e 6 or more drinks on 1 occasion? Monthly [facility] How hard is it for y ou to pay for the very basics like food, housing, medical care, and heating Hard [facility] Do you feel stress - tense, restless, nervous, or anxious, or unable to sleep at night because your mind is troubled all the time - these days [OSQ] To some extent [facility] (I/We) worried wheth er (my/our) food would run out before (I/we) got money to buy more. Sometimes true [facility] The food that (I/we) bought just didn't last, and (I/we) didn't have money to get more. Often true [facility] NEGATED: Highlighted rowStart: NINF History of tobacco use Passive smoker [facility] Functional Status Date Assessment Result Facility 08-21-2023 Functional Status N/A General [facility] 04-04-2023 Functional Status N/A General [facility] Clinical Notes 04-04-2023 to 07-15-2024 Vijaya Granados NP - 07/15/2024 5:24 PM Blake Granados NP - 07/15/2024 3:44 PM EDTHPARISH MENDEZ - 07/15/2024 3:00 PM EDDavid Granados NP - 07/15/2024 3:00 PM EDTPatient Instructions Note Date & Type Note Facility 07-15-2024 History of Present illness Narrative Associated Problem(s): Trigeminal neuralgia (CMS/HCC) Reviewed notes, MRI, TMJ xray Trialed multiple meds in the past: trileptal, tegretol, lyrica, gabapentin Corbin did help some Would like to see a specialist with [facility] I will arrange this Associated Problem(s): Anxiety and depression (CMS/HCC) PHQ 9=10 OZ 7=10 Going to start sertraline at 25mg daily for 7 days, then increase to 50mg Take medication only as directed. This medication will take approximately 4-6 weeks to become effective. If any suicidal thoughts, thoughts of hurting others, or hallucinations contact the office or proceed to the Emergency Room for mental health evaluation. Medication may cause dry mouth, dizziness, and in some cases worsening in depression symptoms. Please contact the office if these occur. Pt states steroids did not help headaches came back Pt is having on going jaw (right side) side pain with on going headaches. Last time pt check BP was last week 120s/75 Images from the original note were not included. Werner Ospina is a 54 y.o. male presents with chief complaint of No chief complaint on file. HPI: No significant changes in the patients pain levels/patterns He did get some help with the medrol dose pack, however once it was done sxs returned Continues to reports pain right side of face, anterior to ear, burning feeling No NV, no vision changes with this either At last visit we did speak about possible anxiety or stress effecting things which he does admit to having these things as well SUBJECTIVE: MEDICATIONS: Current Outpatient Medications Medication Instructions levothyroxine (SYNTHROID, LEVOXYL) 175 mcg, Oral, Daily Naproxen Sodium 220 MG capsule 2 capsules sertraline (Zoloft) 50 MG tablet Start with 1/2 pill daily for 7 days, then increase to 1 pill daily verapamil (CALAN) 120 mg, Nightly ALLERGIES: Allergies Allergen Reactions Egg-Derived Products Hives Augmentin [Amoxicillin-Pot Clavulanate] Rash REVIEW OF SYMPTOMS: Review of Systems Constitutional: Negative for activity change, appetite change and unexpected weight change. HENT: Negative for ear pain, nosebleeds, sneezing, trouble swallowing and voice change. Eyes: Negative for pain, discharge and visual disturbance. Respiratory: Negative for apnea, chest tightness and wheezing. Cardiovascular: Negative for leg swelling. Gastrointestinal: Negative for abdominal distention, blood in stool, constipation and diarrhea. Genitourinary: Negative for decreased urine volume, difficulty urinating, dysuria and hematuria. Skin: Negative for color change. Neurological: Positive for headaches. Negative for dizziness, tremors and seizures. Burning feeling right side of cheek/ear area Psychiatric/Behavioral: Positive for sleep disturbance. Negative for agitation, decreased concentration, hallucinations, self-injury and suicidal ideas. The patient is nervous/anxious. Hematological: Negative for adenopathy. Does not bruise/bleed easily. Endocrine: Negative for cold intolerance, heat intolerance, polydipsia and polyuria. Allergic/Immunologic: Negative for environmental allergies and food allergies. PAST MEDICAL HISTORY Past Medical History: Diagnosis Date Allergies Anxiety and depression (CMS/HCC) Arthritis Headache, migraine (CMS/HCC) History of degenerative disc disease Hyperthyroidism (CMS/HCC) Left inguinal hernia Trigeminal neuralgia of right side of face (CMS/HCC) Past Surgical History: Procedure Laterality Date BACK SURGERY 2002 HERNIA REPAIR 1988 HERNIA REPAIR IR JOINT ASPIRATION Arthrocentesis of the right shoulder joint OTHER SURGICAL HISTORY RIH repair with mesh/ excision of cyst scalp (2013) ; RIH repair (2017) ROTATOR CUFF REPAIR Right 08/14/2018 and distal clavicle resection Dr. Maciel WISDOM TOOTH EXTRACTION wisdom teeth family history includes Arthritis in his maternal grandfather, maternal grandmother, and mother; Cancer in his brother, father, and mother; Colon cancer in his father; Heart disease in his paternal grandfather; Hypertension in his maternal grandmother; Lung cancer in his mother; Skin cancer in his father; Thyroid disease in his paternal grandmother. OBJECTIVE: Visit Vitals BP 128/82 (BP Location: Left arm, Patient Position: Sitting, BP Cuff Size: Adult long) Pulse 81 Temp 98.4 F (Temporal) Resp 18 Ht 6' 2 Wt 214 lb 6.4 oz SpO2 97% BMI 27.53 kg/m Smoking Status Every Day BSA 2.25 m Physical Exam Vitals and nursing note reviewed. Constitutional: General: He is not in acute distress. Appearance: Normal appearance. He is not ill-appearing, toxic-appearing or diaphoretic. HENT: Head: Normocephalic. Right Ear: External ear normal. Left Ear: External ear normal. Nose: Nose normal. Mouth/Throat: Mouth: Mucous membranes are moist. Pharynx: Oropharynx is clear. Eyes: Extraocular Movements: Extraocular movements intact. Conjunctiva/sclera: Conjunctivae normal. Cardiovascular: Rate and Rhythm: Normal rate and regular rhythm. Pulses: Normal pulses. Heart sounds: Normal heart sounds. Pulmonary: Effort: Pulmonary effort is normal. Breath sounds: Normal breath sounds. Abdominal: General: Bowel sounds are normal. Palpations: Abdomen is soft. Musculoskeletal: Cervical back: Neck supple. Right lower leg: No edema. Left lower leg: No edema. Skin: General: Skin is warm and dry. Capillary Refill: Capillary refill takes 2 to 3 seconds. Neurological: General: No focal deficit present. Mental Status: He is alert. Comments: Burning feeling is in the V3 mandibular branch of the trigeminal nerve Psychiatric: Mood and Affect: Mood normal. Behavior: Behavior normal. Thought Content: Thought content normal. Judgment: Judgment normal. ASSESSMENT AND PLAN: Follow up in about 6 weeks (around 08/26/2024) for Recheck. Problem List Items Addressed This Visit Trigeminal neuralgia (CMS/HCC) - Primary Reviewed notes, MRI, TMJ xray Trialed multiple meds in the past: trileptal, tegretol, lyrica, gabapentin Corbin did help some Would like to see a specialist with [facility] I will arrange this Relevant Orders Ambulatory referral to Neurology Over weight Intractable episodic cluster headache Follows with neurology in [place] Does well with verapamil oxygen Cigarette nicotine dependence without complication The patient has been advised of the risks of continued smoking: stroke, AR, all forms of cancer, lung disease, and . Options for quitting smoking include: cold turkey, hypnosis, acupuncture, nicotine replacement meds (gum, lozenges, and patches), Buproprion, and Varenicline. At this time pt is encouraged to evaluate their goals for wanting to quit smoking, and reach out to provider when ready to start this process Anxiety and depression ([facility]) PHQ 9=10 OZ 7=10 Going to start sertraline at 25mg daily for 7 days, then increase to 50mg Take medication only as directed. This medication will take approximately 4-6 weeks to become effective. If any suicidal thoughts, thoughts of hurting others, or hallucinations contact the office or proceed to the Emergency Room for mental health evaluation. Medication may cause dry mouth, dizziness, and in some cases worsening in depression symptoms. Please contact the office if these occur. Relevant Medications sertraline (Zoloft) 50 MG tablet Associated Problem(s): Intractable episodic cluster headache Follows with neurology in [place] Does well with verapamil oxygen Associated Problem(s): Cigarette nicotine dependence without complication The patient has been advised of the risks of continued smoking: stroke, AR, all forms of cancer, lung disease, and . Options for quitting smoking include: cold turkey, hypnosis, acupuncture, nicotine replacement meds (gum, lozenges, and patches), Buproprion, and Varenicline. At this time pt is encouraged to evaluate their goals for wanting to quit smoking, and reach out to provider when ready to start this process documented in this encounter [facility] 07-15-2024 Instructions Vijaya Granados NP - 07/15/2024 3:00 PM EDT Sertraline (zoloft) 50m/2 pill daily for 7 days, then increase to 1 pill daily. May either take at day or night. Take medication only as directed. This medication will take approximately 4-6 weeks to become effective. If any suicidal thoughts, thoughts of hurting others, or hallucinations contact the office or proceed to the Emergency Room for mental health evaluation. Medication may cause dry mouth, dizziness, and in some cases worsening in depression symptoms. Please contact the office if these occur. I will look for a neurologist with [facility] that specializes in trigeminal neuralgia documented in this encounter [facility] 07-03-2024 History of Present illness Narrative Associated Problem(s): Tobacco use The patient has been advised of the risks of continued smoking: stroke, AR, all forms of cancer, lung disease, and . Options for quitting smoking include: cold turkey, hypnosis, acupuncture, nicotine replacement meds (gum, lozenges, and patches), Buproprion, and Varenicline. At this time pt is encouraged to evaluate their goals for wanting to quit smoking, and reach out to provider when ready to start this process Associated Problem(s): Hypothyroidism (CMS/HCC) Current dose levothyroxine is 175mcg Check labs as per [employer]PER recommendation since she just changed dose Associated Problem(s): Primary hypertension (CMS/HCC) Please check blood pressure daily and record DASH diet Limit caffeine Take medication as directed Contact office if chest pain, pressure, dizziness, shortness of breath, swelling legs Recommend slow position changes Current med: calan Associated Problem(s): Trigeminal neuralgia (CMS/HCC) Possible cause to his symptoms, will need to review old notes to see further evaluations Differentials could also include TMJ Steroids do help when he has these flares, he has been under stressors as well which could be contributing Associated Problem(s): Intractable episodic cluster headache Follows with neurology in [place] Does well with verapamil oxygen Pt states the last time he had chronic headaches was January. Pt sees neurology for chronic headaches. Pt [place] He does not see him until maybe August laeyda Pt states his dr has him on for 10min when he has headaches and BP medication. Pt checks BP at home maybe 2x weekly 180/80 is his average at home. Pt had a 6m period without any headaches. Pt states his headaches started coming back end of May. His warning signs he had before starting was tension in the neck and jaw pain. Headaches started getting worse 2/12 he noticed the turning point 2/5. Pt has been dealing with this for 6 years now. His headaches are typically between 9pm-4am 2-4x nightly. At times the headaches are constant and does not light up the one he currently has started last night around 10pm. He called of work today. Achiness in right jaw TMJ and right side of neck. Pt has tried injections, sumatriptan, riza, amitriptiline, topiramate Images from the original note were not included. Werner Ospina is a 54 y.o. male presents with chief complaint of No chief complaint on file. HPI: Pt states the last time he had chronic headaches was January. Pt sees neurology for chronic headaches. Pt seen neuro last in [place] He does not see him until maybe August aleyda Pt states his dr has him on 02 for 10min when he has headaches and BP medication. Pt checks BP at home maybe 2x weekly 180/80 is his average at home. Pt had a 6m period without any headaches. Pt states his headaches started coming back end of May. His warning signs he had before starting was tension in the neck and jaw pain. Headaches started getting worse 06/18 he noticed the turning point 06/11. Pt has been dealing with this for 6 years now. His headaches are typically between 9pm-4am 2-4x nightly. At times the headaches are constant and does not light up the one he currently has started last night around 10pm. He called of work today. Achiness in right jaw TMJ and right side of neck. Pt has tried injections, sumatriptan, riza, amitriptiline, topiramate BRAVO: Jun and Dec/Jan, Facial Pain This is a recurrent problem. The current episode started in the past 7 days. The problem occurs constantly. The problem has been gradually worsening. Associated symptoms include abdominal pain, headaches, neck pain and a rash. Pertinent negatives include no anorexia, change in bowel habit, chest pain, congestion, coughing, fatigue, fever, joint swelling, myalgias, nausea, numbness, sore throat, swollen glands, urinary symptoms, vertigo, visual change, vomiting or weakness. Nothing aggravates the symptoms. He has tried nothing for the symptoms. SUBJECTIVE: MEDICATIONS: Current Outpatient Medications Medication Instructions levothyroxine (SYNTHROID, LEVOXYL) 175 mcg, Oral, Daily methylPREDNISolone (Medrol Dospak) 4 MG tablets Follow schedule on package instructions Naproxen Sodium 220 MG capsule 2 capsules verapamil (CALAN) 120 mg, Nightly ALLERGIES: Allergies Allergen Reactions Egg-Derived Products Hives Augmentin [Amoxicillin-Pot Clavulanate] Rash REVIEW OF SYMPTOMS: Review of Systems Constitutional: Negative for activity change, appetite change, fatigue, fever and unexpected weight change. HENT: Negative for congestion, ear pain, nosebleeds, sneezing, sore throat, trouble swallowing and voice change. Facial pain : right side , anterior to the ear, extends down mandibular area Eyes: Negative for pain, discharge and visual disturbance. Respiratory: Negative for apnea, cough, chest tightness and wheezing. Cardiovascular: Negative for chest pain and leg swelling. Gastrointestinal: Positive for abdominal pain. Negative for abdominal distention, anorexia, blood in stool, change in bowel habit, constipation, diarrhea, nausea and vomiting. Genitourinary: Negative for decreased urine volume, difficulty urinating, dysuria and hematuria. Musculoskeletal: Positive for neck pain. Negative for joint swelling and myalgias. Skin: Positive for rash. Negative for color change. Neurological: Positive for headaches. Negative for dizziness, vertigo, tremors, seizures, weakness and numbness. Psychiatric/Behavioral: Negative for agitation, decreased concentration, hallucinations, self-injury and suicidal ideas. The patient is not nervous/anxious. Hematological: Negative for adenopathy. Does not bruise/bleed easily. Endocrine: Negative for cold intolerance, heat intolerance, polydipsia and polyuria. Allergic/Immunologic: Negative for environmental allergies and food allergies. PAST MEDICAL HISTORY Past Medical History: Diagnosis Date Allergies Anxiety and depression (CMS/HCC) Arthritis Headache, migraine (CMS/HCC) History of degenerative disc disease Hyperthyroidism (CMS/HCC) Left inguinal hernia Trigeminal neuralgia of right side of face (CMS/HCC) Past Surgical History: Procedure Laterality Date BACK SURGERY 2002 HERNIA REPAIR 1988 HERNIA REPAIR IR JOINT ASPIRATION Arthrocentesis of the right shoulder joint OTHER SURGICAL HISTORY RIH repair with mesh/ excision of cyst scalp (2013) ; RIH repair (2017) ROTATOR CUFF REPAIR Right 08/14/2018 and distal clavicle resection Dr. Maciel WISDOM TOOTH EXTRACTION wisdom teeth family history includes Arthritis in his maternal grandfather, maternal grandmother, and mother; Cancer in his brother, father, and mother; Colon cancer in his father; Heart disease in his paternal grandfather; Hypertension in his maternal grandmother; Lung cancer in his mother; Skin cancer in his father; Thyroid disease in his paternal grandmother. OBJECTIVE: Visit Vitals BP 130/88 (BP Location: Left arm, Patient Position: Sitting, BP Cuff Size: Large adult) Pulse 77 Temp 99 F (Temporal) Resp 18 Wt 210 lb 6.4 oz SpO2 96% BMI 27.01 kg/m Smoking Status Every Day BSA 2.23 m Physical Exam Vitals and nursing note reviewed. Constitutional: General: He is not in acute distress. Appearance: Normal appearance. He is not ill-appearing, toxic-appearing or diaphoretic. HENT: Head: Normocephalic. Right Ear: Tympanic membrane, ear canal and external ear normal. Left Ear: Tympanic membrane, ear canal and external ear normal. Nose: Nose normal. No congestion or rhinorrhea. Mouth/Throat: Mouth: Mucous membranes are moist. Pharynx: Oropharynx is clear. No oropharyngeal exudate or posterior oropharyngeal erythema. Comments: Tenderness to the TM joint region, no crepitus with open/closing of jaw, or gliding side to side Eyes: General: No scleral icterus. Extraocular Movements: Extraocular movements intact. Conjunctiva/sclera: Conjunctivae normal. Pupils: Pupils are equal, round, and reactive to light. Neck: Vascular: No carotid bruit. Cardiovascular: Rate and Rhythm: Normal rate and regular rhythm. Pulses: Normal pulses. Heart sounds: Normal heart sounds. No murmur heard. Pulmonary: Effort: Pulmonary effort is normal. No respiratory distress. Breath sounds: Normal breath sounds. No wheezing or rales. Abdominal: General: Bowel sounds are normal. There is no distension. Palpations: Abdomen is soft. There is no mass. Tenderness: There is no abdominal tenderness. There is no rebound. Musculoskeletal: General: Normal range of motion. Cervical back: Neck supple. No rigidity. Right lower leg: No edema. Left lower leg: No edema. Lymphadenopathy: Cervical: No cervical adenopathy. Skin: General: Skin is warm and dry. Capillary Refill: Capillary refill takes 2 to 3 seconds. Findings: No rash. Neurological: General: No focal deficit present. Mental Status: He is alert. Cranial Nerves: No cranial nerve deficit. Deep Tendon Reflexes: Reflexes normal. Comments: Neg ulnar drift and neg romberg test Psychiatric: Mood and Affect: Mood normal. Behavior: Behavior normal. Thought Content: Thought content normal. Judgment: Judgment normal. ASSESSMENT AND PLAN: No follow-ups on file. Problem List Items Addressed This Visit Tobacco use The patient has been advised of the risks of continued smoking: stroke, AR, all forms of cancer, lung disease, and . Options for quitting smoking include: cold turkey, hypnosis, acupuncture, nicotine replacement meds (gum, lozenges, and patches), Buproprion, and Varenicline. At this time pt is encouraged to evaluate their goals for wanting to quit smoking, and reach out to provider when ready to start this process Trigeminal neuralgia (CMS/HCC) - Primary Possible cause to his symptoms, will need to review old notes to see further evaluations Differentials could also include TMJ Steroids do help when he has these flares, he has been under stressors as well which could be contributing Relevant Medications methylPREDNISolone (Medrol Dospak) 4 MG tablets Primary hypertension (CMS/HCC) Please check blood pressure daily and record DASH diet Limit caffeine Take medication as directed Contact office if chest pain, pressure, dizziness, shortness of breath, swelling legs Recommend slow position changes Current med: calan Intractable episodic cluster headache Follows with neurology in [place] Does well with verapamil oxygen documented in this encounter [facility] 07-03-2024 Instructions Vijaya Granados NP - 07/03/2024 2:20 PM EST Try steroids Fu in 2-3 weeks documented in this encounter [facility] 06-09-2024 History of Present illness Narrative Associated Problem(s): Hypothyroidism (CMS/HCC) Currently taking Levothyroxine 175mcg. Will recheck TSH today. (Was ordered in April but did not have completed). Associated Problem(s): Intractable episodic cluster headache Currently taking Verapamil and using PRN O2 therapy for cluster headaches. Feels headaches are improving significantly. Is very satisfied with care at current neurologist. Continue current regimen as directed by neurology. Images from the original note were not included. Subjective Patient ID: Werner Ospina is a 54 y.o. male who presents for Follow-up. HPI Specialists: Neurology- Dr. Bourne Podiatry- Dr. Lamb Hypothyroidism: Currently taking Levothyroxine 175mcg. Will recheck TSH today. (Was ordered in April but did not have completed). Headaches Currently taking Verapamil and using PRN O2 therapy for cluster headaches. Feels headaches are improving significantly. Is very satisfied with care at current neurologist. Continue current regimen as directed by neurology. Review of Systems Constitutional: Negative for activity change, appetite change, chills, diaphoresis, fatigue, fever and unexpected weight change. HENT: Negative for congestion, ear pain, rhinorrhea, sinus pressure, sinus pain, sneezing, sore throat, trouble swallowing and voice change. Eyes: Negative for visual disturbance. Respiratory: Negative for cough, chest tightness, shortness of breath and wheezing. Cardiovascular: Negative for chest pain, palpitations and leg swelling. Gastrointestinal: Negative for abdominal distention, abdominal pain, blood in stool, constipation, diarrhea and vomiting. Genitourinary: Negative for decreased urine volume, dysuria, flank pain, frequency, hematuria and urgency. Musculoskeletal: Negative for arthralgias, gait problem, joint swelling and myalgias. Skin: Negative for rash. Neurological: Negative for dizziness, tremors, syncope, weakness, light-headedness and headaches. Psychiatric/Behavioral: Negative for decreased concentration and suicidal ideas. The patient is not nervous/anxious. Hematological: Does not bruise/bleed easily. Endocrine: Negative for cold intolerance, heat intolerance, polydipsia, polyphagia and polyuria. Objective Physical Exam Vitals reviewed. Constitutional: Appearance: Normal appearance. HENT: Right Ear: Tympanic membrane normal. Left Ear: Tympanic membrane normal. Nose: Nose normal. Mouth/Throat: Mouth: Mucous membranes are moist. Pharynx: Oropharynx is clear. Eyes: Pupils: Pupils are equal, round, and reactive to light. Cardiovascular: Rate and Rhythm: Normal rate and regular rhythm. Pulses: Normal pulses. Heart sounds: Normal heart sounds. Pulmonary: Effort: Pulmonary effort is normal. Breath sounds: Normal breath sounds. Abdominal: General: Abdomen is flat. Bowel sounds are normal. Palpations: Abdomen is soft. Skin: Capillary Refill: Capillary refill takes less than 2 seconds. Neurological: Mental Status: He is alert and oriented to person, place, and time. Assessment/Plan Problem List Items Addressed This Visit Hypothyroidism ([facility]) Currently taking Levothyroxine 175mcg. Will recheck TSH today. (Was ordered in April but did not have completed). Intractable episodic cluster headache Currently taking Verapamil and using PRN O2 therapy for cluster headaches. Feels headaches are improving significantly. Is very satisfied with care at current neurologist. Continue current regimen as directed by neurology. Other Visit Diagnoses History of CVA (cerebrovascular accident) without residual deficits - Primary Relevant Orders Ambulatory referral to Cardiology documented in this encounter [facility] 06-09-2024 Instructions Evelyn Jenkins NP - 06/09/2024 3:30 PM EST Get more supportive shoes!!! Follow up with Podiatry. Referral sent to Dr. Simmons- Cardiology. They will call you! If you don't hear from them in 2 weeks, call my office! documented in this encounter [facility] 05-26-2024 History of Present illness Narrative Associated Problem(s): Murmur No current symptoms noted May be incidental find on exam Recommend he report this to Christ Jenkins NP at next appt Associated Problem(s): Tobacco use The patient has been advised of the risks of continued smoking: stroke, AR, all forms of cancer, lung disease, and . Options for quitting smoking include: cold turkey, hypnosis, acupuncture, nicotine replacement meds (gum, lozenges, and patches), Buproprion, and Varenicline. At this time pt is encouraged to evaluate their goals for wanting to quit smoking, and reach out to provider when ready to start this process Associated Problem(s): Acute non-recurrent maxillary sinusitis Augmentin 875mg BID Fluids, rest, Fu if not better Associated Problem(s): Hypothyroidism (CMS/HCC) Current dose levothyroxine is 175mcg Check labs as per TAIL RIPPER recommendation since she just changed dose Associated Problem(s): Primary hypertension (CMS/HCC) Please check blood pressure daily and record DASH diet Limit caffeine Take medication as directed Contact office if chest pain, pressure, dizziness, shortness of breath, swelling legs Recommend slow position changes Current med: calan Pt has head congestion, achy, drainage, raspy voice since Sunday, upper body tightness, fatigue, sleeping a lot, pressure in both ears, lump in the back of the throat, some wheezing, sob, stuffy/runny nose, unable to cough mucus up. A lot of pain and achy ness in the sternum and collar bone area, cold chills Pt took robitussin once that did help a lil bit and he tried mucinex however did not help Images from the original note were not included. Werner Ospina is a 54 y.o. male presents with chief complaint of Sore Throat HPI: Pt has head congestion, achy, drainage, raspy voice since Sunday, upper body tightness, fatigue, sleeping a lot, pressure in both ears, lump in the back of the throat, some wheezing, sob, stuffy/runny nose, unable to cough mucus up. A lot of pain and achy ness in the sternum and collar bone area, cold chills Pt took robitussin once that did help a lil bit and he tried mucinex however did not help Does not take covid or flu shots URI This is a new problem. The current episode started in the past 7 days. The problem has been gradually worsening. There has been no fever. Associated symptoms include congestion, coughing, sinus pain, a sore throat, swollen glands and wheezing. Pertinent negatives include no abdominal pain, diarrhea, dysuria, ear pain, headaches, nausea, plugged ear sensation or vomiting. Treatments tried: OTC. The treatment provided no relief. SUBJECTIVE: MEDICATIONS: Current Outpatient Medications Medication Instructions amoxicillin-clavulanate (Augmentin) 875-125 MG tablet 875 mg, Oral, 2 times daily, Take with food levothyroxine (SYNTHROID, LEVOXYL) 175 mcg, Oral, Daily Naproxen Sodium 220 MG capsule 2 capsules, Oral verapamil (CALAN) 120 mg, Nightly ALLERGIES: Allergies Allergen Reactions Egg-Derived Products Hives REVIEW OF SYMPTOMS: Review of Systems Constitutional: Negative for activity change, appetite change and unexpected weight change. HENT: Positive for congestion, sinus pain and sore throat. Negative for ear pain. Eyes: Negative for pain, discharge and visual disturbance. Respiratory: Positive for cough and wheezing. Cardiovascular: Negative for leg swelling. Gastrointestinal: Negative for abdominal distention, abdominal pain, blood in stool, constipation, diarrhea, nausea and vomiting. Genitourinary: Negative for decreased urine volume, difficulty urinating, dysuria and hematuria. Musculoskeletal: Positive for arthralgias. Skin: Negative for color change. Neurological: Negative for dizziness, tremors, seizures and headaches. Psychiatric/Behavioral: Negative for agitation, decreased concentration, hallucinations, self-injury and suicidal ideas. The patient is not nervous/anxious. Hematological: Negative for adenopathy. Does not bruise/bleed easily. Endocrine: Negative for cold intolerance, heat intolerance, polydipsia and polyuria. Allergic/Immunologic: Negative for environmental allergies and food allergies. PAST MEDICAL HISTORY Past Medical History: Diagnosis Date Allergies Anxiety and depression (CMS/HCC) Arthritis Headache, migraine (CMS/HCC) History of degenerative disc disease Hyperthyroidism (CMS/HCC) Left inguinal hernia Trigeminal neuralgia of right side of face (CMS/HCC) Past Surgical History: Procedure Laterality Date BACK SURGERY 2002 HERNIA REPAIR 1988 HERNIA REPAIR IR JOINT ASPIRATION Arthrocentesis of the right shoulder joint OTHER SURGICAL HISTORY RIH repair with mesh/ excision of cyst scalp (2013) ; RIH repair (2017) ROTATOR CUFF REPAIR Right 08/14/2018 and distal clavicle resection Dr. Maciel WISDOM TOOTH EXTRACTION wisdom teeth family history includes Arthritis in his maternal grandfather, maternal grandmother, and mother; Cancer in his brother, father, and mother; Colon cancer in his father; Heart disease in his paternal grandfather; Hypertension in his maternal grandmother; Lung cancer in his mother; Skin cancer in his father; Thyroid disease in his paternal grandmother. OBJECTIVE: Visit Vitals BP 118/84 (BP Location: Left arm, Patient Position: Sitting, BP Cuff Size: Adult long) Pulse 67 Temp 98.7 F (Temporal) Resp 19 Wt 213 lb SpO2 98% BMI 27.35 kg/m Smoking Status Every Day BSA 2.25 m Physical Exam Vitals and nursing note reviewed. Constitutional: General: He is not in acute distress. Appearance: Normal appearance. He is not ill-appearing or diaphoretic. HENT: Head: Normocephalic. Right Ear: Tympanic membrane, ear canal and external ear normal. Left Ear: Tympanic membrane, ear canal and external ear normal. Nose: Congestion present. Comments: Sinus pressure Mouth/Throat: Mouth: Mucous membranes are moist. Pharynx: Oropharynx is clear. Posterior oropharyngeal erythema (mild) present. Eyes: Extraocular Movements: Extraocular movements intact. Conjunctiva/sclera: Conjunctivae normal. Cardiovascular: Rate and Rhythm: Normal rate and regular rhythm. Pulses: Normal pulses. Heart sounds: Murmur heard. Pulmonary: Effort: Pulmonary effort is normal. No respiratory distress. Breath sounds: Normal breath sounds. No wheezing. Abdominal: General: Bowel sounds are normal. There is no distension. Palpations: Abdomen is soft. There is no mass. Tenderness: There is no abdominal tenderness. There is no guarding. Musculoskeletal: Cervical back: Neck supple. Right lower leg: No edema. Left lower leg: Edema present. Lymphadenopathy: Cervical: Cervical adenopathy present. Skin: General: Skin is warm and dry. Capillary Refill: Capillary refill takes 2 to 3 seconds. Neurological: General: No focal deficit present. Mental Status: He is alert. Psychiatric: Mood and Affect: Mood normal. Behavior: Behavior normal. Thought Content: Thought content normal. Judgment: Judgment normal. ASSESSMENT AND PLAN: No follow-ups on file. Problem List Items Addressed This Visit Hypothyroidism (CMS/HCC) Current dose levothyroxine is 175mcg Check labs as per TAIL RIPPER recommendation since she just changed dose Over weight Primary hypertension (CMS/HCC) Please check blood pressure daily and record DASH diet Limit caffeine Take medication as directed Contact office if chest pain, pressure, dizziness, shortness of breath, swelling legs Recommend slow position changes Current med: calan Acute non-recurrent maxillary sinusitis - Primary Augmentin 875mg BID Fluids, rest, Fu if not better Relevant Medications amoxicillin-clavulanate (Augmentin) 875-125 MG tablet Murmur No current symptoms noted May be incidental find on exam Recommend he report this to Christ Jenkins NP at next appt \ documented in this encounter [facility] 05-26-2024 Instructions Vijaya Granados NP - 05/26/2024 4:15 PM EST Take atb Warm salt water gargles throat lozenges Fu if not better documented in this encounter [facility] 05-01-2024 History of Present illness Narrative Patient: Werner Ospina : 1970 PCP: Paul Birch MD SUBJECTIVE Patient presents today for follow up of skin lesion/neoplasm of unknown origin to the right and left foot Pt states that previous treatment of acid tx with some improvement Pt rates pain the pain on a 1-10 scale an intensity of 3 Pt presents today for followup. Patient also has history of generalized foot pain with hammertoe deformities 2 through 5 bilaterally Patient presents today for fitting of covered orthotics. Allergies: Allergies Allergen Reactions Egg-Derived Products Hives Past Medical History: Past Medical History: Diagnosis Date Allergies Anxiety and depression ([facility]) Arthritis Headache, migraine ([facility]) History of degenerative disc disease Hyperthyroidism ([facility]) Left inguinal hernia Trigeminal neuralgia of right side of face ([facility]) Medications: Current Outpatient Medications: levothyroxine (Synthroid, Levoxyl) 175 MCG tablet, Take 1 tablet (175 mcg) by mouth Daily, Disp: 30 tablet, Rfl: 11 verapamil (Calan) 80 MG tablet, Take 1 tablet (80 mg) by mouth Daily, Disp: 90 tablet, Rfl: 1 Social History: Social History Socioeconomic History Marital status: Spouse name: Not on file Number of children: Not on file Years of education: Not on file Highest education level: Not on file Occupational History Not on file Tobacco Use Smoking status: Every Day Current packs/day: 0.50 Types: Cigarettes Passive exposure: Never Smokeless tobacco: Never Vaping Use Vaping status: Never Used Substance and Sexual Activity Alcohol use: Never Comment: caffeine: 2-3 cups per day Drug use: Never Sexual activity: Defer Other Topics Concern Not on file Social History Narrative Not on file Social Drivers of Health Financial Resource Strain: Not on file Food Insecurity: Not on file Transportation Needs: Not on file Physical Activity: Not on file Stress: Not on file Social Connections: Not on file Intimate Partner Violence: Not on file Housing Stability: Not on file ROS: General: denies fever, chills, fatigue, malaise Gastrointestinal: denies abdominal pain, ulcers, or changes in appetite or bowel habits Musculoskeletal: Positive history of generalized arthritis, denies loss of strength, pain to hip, knees, back Cardiovascular: denies CP, palpitations, irregular rhythms. Positive history of transient TIA in the past OBJECTIVE LE EXAM: DERM: Elongated thick yellow crumbly nails digits 1 through 10. Positive hair growth b/l feet. Rubor to 2 through 5 digits bilaterally PIPJ regions Nummular lesion measuring at the left and right sub 4th metatarsal region measuring 0.3 cm x 0.2 cm. VASC: Positive palpable pedal pulses bilaterally NEURO: Gross sensation intact to bilateral feet ORTHO: Positive pain on palpation to nails 1 through 10 Positive pain on palpation to bilateral foot lesions Flexion deformities 2 through 5 metatarsals bilaterally as well as 2 through 5 digits bilaterally with pes cavus foot type and plantar flexed metatarsals 2 through 5 bilateral ASSESSMENT 1. Metatarsal deformity, left 2. Metatarsal deformity, right PLAN Pt was fitted for custom made orthotics today. Orthotics were deemed to fit appropriately and patient was informed of proper break in of devices. Patient education on break in of device. ABN signed and in chart if warranted. Application of salinocaine acid medication to lesion/lesions located at right foot Informed pt of risks and benefits of procedure including high reoccurence rate, infection, pain and consent given. Application of DSD post procedure. Application of salinocaine acid medication to lesion/lesions located at left foot Informed pt of risks and benefits of procedure including high reoccurence rate, infection, pain and consent given. Application of DSD post procedure. Patient to continue with oral anti - inflammatories as needed for pain and recommended OTC medications such as tylenol or Ibuprofen Pablo Lamb DPM documented in this encounter [facility] 04-10-2024 History of Present illness Narrative Patient: Werner Ospina : 1970 PCP: Paul Birch MD SUBJECTIVE Patient presents today for follow up of skin lesion/neoplasm of unknown origin to the right and left foot Pt states that previous treatment of acid tx with some improvement Pt rates pain the pain on a 1-10 scale an intensity of 7 Pt presents today for followup. Patient also has history of generalized foot pain with hammertoe deformities 2 through 5 bilaterally Patient presents today for casting of orthotics that are covered device at this time. Allergies: Allergies Allergen Reactions Egg-Derived Products Hives Past Medical History: Past Medical History: Diagnosis Date Allergies Anxiety and depression ([facility]) Arthritis Headache, migraine (CMS/HCC) History of degenerative disc disease Hyperthyroidism (CMS/HCC) Left inguinal hernia Trigeminal neuralgia of right side of face (CMS/HCC) Medications: Current Outpatient Medications: levothyroxine (Synthroid) 150 MCG tablet, Take 1 tablet (150 mcg) by mouth in the morning. Take before meals., Disp: 90 tablet, Rfl: 0 verapamil (Calan) 80 MG tablet, Take 1 tablet (80 mg) by mouth Daily, Disp: 90 tablet, Rfl: 1 Social History: Social History Socioeconomic History Marital status: Spouse name: Not on file Number of children: Not on file Years of education: Not on file Highest education level: Not on file Occupational History Not on file Tobacco Use Smoking status: Every Day Current packs/day: 0.50 Types: Cigarettes Passive exposure: Never Smokeless tobacco: Never Vaping Use Vaping status: Never Used Substance and Sexual Activity Alcohol use: Never Comment: caffeine: 2-3 cups per day Drug use: Never Sexual activity: Defer Other Topics Concern Not on file Social History Narrative Not on file Social Drivers of Health Financial Resource Strain: Not on file Food Insecurity: Not on file Transportation Needs: Not on file Physical Activity: Not on file Stress: Not on file Social Connections: Not on file Intimate Partner Violence: Not on file Housing Stability: Not on file ROS: General: denies fever, chills, fatigue, malaise Gastrointestinal: denies abdominal pain, ulcers, or changes in appetite or bowel habits Musculoskeletal: Positive history of generalized arthritis, denies loss of strength, pain to hip, knees, back Cardiovascular: denies CP, palpitations, irregular rhythms. Positive history of transient TIA in the past OBJECTIVE LE EXAM: DERM: Elongated thick yellow crumbly nails digits 1 through 10. Positive hair growth b/l feet. Rubor to 2 through 5 digits bilaterally PIPJ regions Nummular lesion measuring at the left and right sub 4th metatarsal region measuring 0.3 cm x 0.3 cm. VASC: Positive palpable pedal pulses bilaterally NEURO: Gross sensation intact to bilateral feet ORTHO: Positive pain on palpation to nails 1 through 10 Positive pain on palpation to bilateral foot lesions Flexion deformities 2 through 5 metatarsals bilaterally as well as 2 through 5 digits bilaterally with pes cavus foot type ASSESSMENT 1. Metatarsal deformity, left 2. Metatarsal deformity, right 3. Verruca plantaris 4. Foot pain, left 5. Foot pain, right PLAN Pt presents today for casting of a removable foot inserts/orthotics today that was accomplished with scanning of feet and sent to orthotics lab.(L3020 right and L3020 left foot). Pt to have signed ABN for device if needed. It was explained to the patient of a break in period for the devices. The patient is ambulatory may benefit functionally for this device. It may be used for the following conditions as noted per EMR. Application of salinocaine acid medication to lesion/lesions located at right foot Informed pt of risks and benefits of procedure including high reoccurence rate, infection, pain and consent given. Application of DSD post procedure. Application of salinocaine acid medication to lesion/lesions located at left foot Informed pt of risks and benefits of procedure including high reoccurence rate, infection, pain and consent given. Application of DSD post procedure. Patient to continue with oral anti - inflammatories as needed for pain and recommended OTC medications such as tylenol or Ibuprofen Pablo Lamb DPM documented in this encounter [facility] 03-20-2024 History of Present illness Narrative Patient: Werner Ospina DOB: 1970 PCP: Paul Birch MD SUBJECTIVE This is a 54 y.o. male that presents today with a CC of elongated, thick nails. Pt states nails have been elongated and thick for many years and cause pain with ambulation in shoegear. Pt has tried previous treatment with minimal relief. Pt presents today for nail care and treatment. Patient also has complaints of bilateral plantar foot painful lesions that is been present for the past few months and has sharp and painful with ambulation and presents today for treatment denies any previous treatments Patient also has history of generalized foot pain with hammertoe deformities 2 through 5 bilaterally Allergies: Allergies Allergen Reactions Egg-Derived Products Hives Past Medical History: Past Medical History: Diagnosis Date Allergies Anxiety and depression (CMS/HCC) Arthritis Headache, migraine (CMS/HCC) History of degenerative disc disease Hyperthyroidism (CMS/HCC) Left inguinal hernia Trigeminal neuralgia of right side of face (CMS/HCC) Medications: Current Outpatient Medications: celecoxib (CeleBREX) 200 MG capsule, Take 1 capsule (200 mg) by mouth in the morning and 1 capsule (200 mg) before bedtime., Disp: 60 capsule, Rfl: 0 levothyroxine (Synthroid) 150 MCG tablet, Take 1 tablet (150 mcg) by mouth in the morning. Take before meals., Disp: 90 tablet, Rfl: 0 verapamil (Calan) 80 MG tablet, Take 1 tablet (80 mg) by mouth Daily, Disp: 90 tablet, Rfl: 1 Social History: Social History Socioeconomic History Marital status: Spouse name: Not on file Number of children: Not on file Years of education: Not on file Highest education level: Not on file Occupational History Not on file Tobacco Use Smoking status: Every Day Current packs/day: 0.50 Types: Cigarettes Passive exposure: Never Smokeless tobacco: Never Vaping Use Vaping status: Never Used Substance and Sexual Activity Alcohol use: Never Comment: caffeine: 2-3 cups per day Drug use: Never Sexual activity: Defer Other Topics Concern Not on file Social History Narrative Not on file Social Drivers of Health Financial Resource Strain: Not on file Food Insecurity: Not on file Transportation Needs: Not on file Physical Activity: Not on file Stress: Not on file Social Connections: Not on file Intimate Partner Violence: Not on file Housing Stability: Not on file ROS: General: denies fever, chills, fatigue, malaise Gastrointestinal: denies abdominal pain, ulcers, or changes in appetite or bowel habits Musculoskeletal: Positive history of generalized arthritis, denies loss of strength, pain to hip, knees, back Cardiovascular: denies CP, palpitations, irregular rhythms. Positive history of transient TIA in the past OBJECTIVE LE EXAM: DERM: Elongated thick yellow crumbly nails digits 1 through 10. Positive hair growth b/l feet. Rubor to 2 through 5 digits bilaterally PIPJ regions Nummular lesion measuring at the left and right sub 4th metatarsal region measuring 0.3 cm x 0.3 cm. VASC: Positive palpable pedal pulses bilaterally NEURO: Gross sensation intact to bilateral feet ORTHO: Positive pain on palpation to nails 1 through 10 Positive pain on palpation to bilateral foot lesions Flexion deformities 2 through 5 metatarsals bilaterally as well as 2 through 5 digits bilaterally with pes cavus foot type ASSESSMENT 1. Acquired deformity of left toe 2. Bilateral foot pain 3. Fungal nail infection 4. Abscess of toe, right 5. Neoplasm of uncertain behavior of skin 6. Verruca plantaris 7. Foot pain, left 8. Foot pain, right 9. Metatarsal deformity, left 10. Metatarsal deformity, right 11. Pain due to onychomycosis of toenails of both feet PLAN Discussed proper foot care with patient today. Debride nails in length and thickness digits 1 through 10 Discussed condition in detail with patient today and discussed conservative treatments and possible excisional biopsy of lesion in the future for pathological diagnosis of specimen. Patient may take [id number] NSAID p.r.n. for pain Application of salinocaine acid medication to lesion/lesions located at right foot Informed pt of risks and benefits of procedure including high reoccurence rate, infection, pain and consent given. Application of DSD post procedure. Application of salinocaine acid medication to lesion/lesions located at left foot Informed pt of risks and benefits of procedure including high reoccurence rate, infection, pain and consent given. Application of DSD post procedure. Patient to continue with oral anti - inflammatories as needed for pain and recommended OTC medications such as tylenol or Ibuprofen Will pre-certify for inserts Pablo Lamb DPM documented in this encounter [facility] 03-04-2024 History of Present illness Narrative Associated Problem(s): Intractable episodic cluster headache Currently taking Verapamil and using PRN O2 therapy for cluster headaches. Feels headaches are improving significantly. Is very satisfied with care at current neurologist. Continue current regimen as directed by neurology. Associated Problem(s): Bilateral foot pain Complains of bilateral foot and hip pain. States he wears steel toe boots at work, tennis shoes at home. Wears inserts in all shoes. Is unsure if pain is coming from hips or from feet. States he has had chronic bilateral foot pain. Has recurrent calluses he cuts out of foot Referral sent to Podiatry Will consider Xrays of hips if no relief with custom foot care. Associated Problem(s): Hypothyroidism (CMS/HCC) Currently taking Levothyroxine 150mcg. Recheck TSH today. Associated Problem(s): Primary hypertension (CMS/HCC) Currently taking verapamil 80mg Checks BP at home; Averages are 120's/70's. Denies orthostatic changes, dizziness, cough, shortness of breath, swelling in extremities. Continue current regimen. Given BP log, advised pt to record BP and bring log back with them to next visit. Images from the original note were not included. Subjective Patient ID: Werner Ospina is a 54 y.o. male who presents for Hypertension and Hip Pain. Hypertension Pertinent negatives include no chest pain, headaches, palpitations or shortness of breath. Hip Pain Specialists: Neurology- Dr. Bourne HTN: Currently taking verapamil 80mg Checks BP at home; Averages are 120's/70's. Denies orthostatic changes, dizziness, cough, shortness of breath, swelling in extremities. Continue current regimen. Given BP log, advised pt to record BP and bring log back with them to next visit. Hypothyroidism: Currently taking Levothyroxine 150mcg. Recheck TSH today. Foot Pain: Complains of bilateral foot and hip pain. States he wears steel toe boots at work, tennis shoes at home. Wears inserts in all shoes. Is unsure if pain is coming from hips or from feet. States he has had chronic bilateral foot pain. Has recurrent calluses he cuts out of foot Referral sent to Podiatry Will consider Xrays of hips if no relief with custom foot care. Headaches Currently taking Verapamil and using PRN O2 therapy for cluster headaches. Feels headaches are improving significantly. Is very satisfied with care at current neurologist. Continue current regimen as directed by neurology. Review of Systems Constitutional: Negative for activity change, appetite change, chills, diaphoresis, fatigue, fever and unexpected weight change. HENT: Negative for congestion, ear pain, rhinorrhea, sinus pressure, sinus pain, sneezing, sore throat, trouble swallowing and voice change. Eyes: Negative for visual disturbance. Respiratory: Negative for cough, chest tightness, shortness of breath and wheezing. Cardiovascular: Negative for chest pain, palpitations and leg swelling. Gastrointestinal: Negative for abdominal distention, abdominal pain, blood in stool, constipation, diarrhea and vomiting. Genitourinary: Negative for decreased urine volume, dysuria, flank pain, frequency, hematuria and urgency. Musculoskeletal: Positive for arthralgias. Negative for gait problem, joint swelling and myalgias. Skin: Negative for rash. Neurological: Negative for dizziness, tremors, syncope, weakness, light-headedness and headaches. Psychiatric/Behavioral: Negative for decreased concentration and suicidal ideas. The patient is not nervous/anxious. Hematological: Does not bruise/bleed easily. Endocrine: Negative for cold intolerance, heat intolerance, polydipsia, polyphagia and polyuria. Objective Physical Exam Vitals reviewed. Constitutional: Appearance: Normal appearance. HENT: Head: Normocephalic and atraumatic. Right Ear: Tympanic membrane normal. Left Ear: Tympanic membrane normal. Nose: Nose normal. Mouth/Throat: Mouth: Mucous membranes are moist. Pharynx: Oropharynx is clear. Eyes: Pupils: Pupils are equal, round, and reactive to light. Cardiovascular: Rate and Rhythm: Normal rate and regular rhythm. Pulses: Normal pulses. Heart sounds: Normal heart sounds. Pulmonary: Effort: Pulmonary effort is normal. Breath sounds: Normal breath sounds. Abdominal: General: Abdomen is flat. Bowel sounds are normal. Palpations: Abdomen is soft. Musculoskeletal: General: Normal range of motion. Cervical back: Normal range of motion. Feet: Right foot: Skin integrity: Callus present. Toenail Condition: Right toenails are abnormally thick and long. Fungal disease present. Left foot: Skin integrity: Callus present. Toenail Condition: Left toenails are abnormally thick and long. Fungal disease present. Skin: General: Skin is warm and dry. Capillary Refill: Capillary refill takes less than 2 seconds. Neurological: General: No focal deficit present. Mental Status: He is alert and oriented to person, place, and time. Psychiatric: Mood and Affect: Mood normal. Behavior: Behavior normal. Assessment/Plan Problem List Items Addressed This Visit Hypothyroidism (CMS/HCC) - Primary Currently taking Levothyroxine 150mcg. Recheck TSH today. Relevant Orders TSH W/REFLEX TO FT4 Primary hypertension (CMS/HCC) Currently taking verapamil 80mg Checks BP at home; Averages are 120's/70's. Denies orthostatic changes, dizziness, cough, shortness of breath, swelling in extremities. Continue current regimen. Given BP log, advised pt to record BP and bring log back with them to next visit. Intractable episodic cluster headache Currently taking Verapamil and using PRN O2 therapy for cluster headaches. Feels headaches are improving significantly. Is very satisfied with care at current neurologist. Continue current regimen as directed by neurology. Bilateral foot pain Complains of bilateral foot and hip pain. States he wears steel toe boots at work, tennis shoes at home. Wears inserts in all shoes. Is unsure if pain is coming from hips or from feet. States he has had chronic bilateral foot pain. Has recurrent calluses he cuts out of foot Referral sent to Podiatry Will consider Xrays of hips if no relief with custom foot care. Relevant Medications celecoxib (CeleBREX) 200 MG capsule Other Relevant Orders Ambulatory referral to Podiatry Fungal nail infection Relevant Orders Ambulatory referral to Podiatry Screening for colon cancer Relevant Orders Cologuard colon cancer screening documented in this encounter [facility] 03-04-2024 Instructions Evelyn Jenkins NP - 03/04/2024 3:30 PM EDT [facility] [employer]. Do not go barefoot, even in the house. Referral sent to Podiatry-Dr. Lmab they will call you. If you don't hear from them in 2 weeks, call office! documented in this encounter [facility] 08-21-2023 Note Chief Complaint consultation for colonoscopy [...] Recorded SARS-CoV-2 (COVID-19) mRNA-1273 vaccine 04/05/2021 Recorded [facility] Comment on above: Result Comment: Elec tronically Signed By: TELLY COHEN, Binu De Los Santos.domenica\Date and Time Signed: 08/21/23 16:39 EDT 04-04-2023 Note Chief Complaint consultation for left inguinal hernia HPI Staff 53 year old male presents on consultation from Dr. Ennis for left inguinal hernia. Reports he noted [...] E&M of New Patient Moderate 45-59 Min 12997 2. Tobacco use (Z72.0: Tobacco use) We [...] E&M of New Patient Moderate 45-59 Min 10192 Follow-up No qualifying data available Problem List/Past [...] Oral, Daily Allergie (more content not included)... [facility] Comment on above: Result Comment: Elec tronically Signed By: Binu VARNER MD\.domenica\Date and Time Signed: 04/04/23 17:14 EST Evaluation + Plan note No data available for this section General Surgery [employer] Evaluation + Plan note Future Appointments Appointment Date:06/13/2023 03:20:00 PM Scheduled Provider:Binu VARNER MD Location:[facility] Appointment Type: Post Op 15 General Surgery [place] Evaluation note Diagnosis Cluster headache, not intractable, unspecified chronicity pattern Hypothyroidism, unspecified type documented in this encounter [facility] Phone: evaluation note* Diagnosis Cluster headache, not intractable, unspecified chronicity pattern Hypothyroidism, unspecified type Cervical spondylosis Cervical spondylosis without myelopathy documented in this encounter [facility] Phone: evaluation note* Diagnosis URTI (acute upper respiratory infection)- Primary Acute upper respiratory infections of unspecified site Hypothyroidism, unspecified type (CMS/HCC) Encounter for screening colonoscopy Tobacco dependency Tobacco use disorder Trigeminal neuralgia (CMS/HCC) Trigeminal neuralgia Tobacco use Wellness examination Trigeminal neuralgia (CMS/HCC)- Primary Trigeminal neuralgia Hypothyroidism, unspecified type (CMS/HCC) Elevated blood pressure reading in office without diagnosis of hypertension Primary hypertension (CMS/HCC)- Primary Unspecified essential hypertension Trigeminal neuralgia (CMS/HCC) Trigeminal neuralgia Hypothyroidism, unspecified type (CMS/HCC) Intractable episodic cluster headache Primary hypertension (CMS/HCC)- Primary Unspecified essential hypertension Hypothyroidism, unspecified type (CMS/HCC) Trigeminal neuralgia (CMS/HCC) Trigeminal neuralgia Intractable episodic cluster headache Hypothyroidism, unspecified type (CMS/HCC)- Primary Primary hypertension (CMS/HCC) Unspecified essential hypertension Bilateral foot pain Fungal nail infection Screening for colon cancer Special screening for malignant neoplasms, colon Intractable episodic cluster headache [facility] Diagnosis Cluster headache, not intractable, unspecified chronicity pattern Cervical spondylosis Cervical spondylosis without myelopathy Hypothyroidism, unspecified type 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 Transient ischemic attack (TIA), and cerebral infarction without residual deficits documented in this encounter [facility] Work Phone: evaluation note* Diagnosis URTI (acute upper respiratory infection)- Primary Acute upper respiratory infections of unspecified site Hypothyroidism, unspecified type (CMS/HCC) Encounter for screening colonoscopy Tobacco dependency Tobacco use disorder Trigeminal neuralgia (CMS/HCC) Trigeminal neuralgia Tobacco use Wellness examination Trigeminal neuralgia (CMS/HCC)- Primary Trigeminal neuralgia Hypothyroidism, unspecified type (CMS/HCC) Elevated blood pressure reading in office without diagnosis of hypertension Primary hypertension (CMS/HCC)- Primary Unspecified essential hypertension Trigeminal neuralgia (CMS/HCC) Trigeminal neuralgia Hypothyroidism, unspecified type (CMS/HCC) Intractable episodic cluster headache Primary hypertension (CMS/HCC)- Primary Unspecified essential hypertension Hypothyroidism, unspecified type (CMS/HCC) Trigeminal neuralgia (CMS/HCC) Trigeminal neuralgia Intractable episodic cluster headache Hypothyroidism, unspecified type (CMS/HCC)- Primary Primary hypertension (CMS/HCC) Unspecified essential hypertension Bilateral foot pain Fungal nail infection Screening for colon cancer Special screening for malignant neoplasms, colon Intractable episodic cluster headache Acquired deformity of left toe- Primary Bilateral foot pain Fungal nail infection Abscess of toe, right Neoplasm of uncertain behavior of skin Verruca plantaris Plantar wart Foot pain, left Pain in soft tissues of limb Foot pain, right Pain in soft tissues of limb Metatarsal deformity, left Metatarsal deformity, right Pain due to onychomycosis of toenails of both feet [facility] Diagnosis URTI (acute upper respiratory infection)- Primary Acute upper respiratory infections of unspecified site Hypothyroidism, unspecified type (CMS/HCC) Encounter for screening colonoscopy Tobacco dependency Tobacco use disorder Trigeminal neuralgia (CMS/HCC) Trigeminal neuralgia Tobacco use Wellness examination Trigeminal neuralgia (CMS/HCC)- Primary Trigeminal neuralgia Hypothyroidism, unspecified type (CMS/HCC) Elevated blood pressure reading in office without diagnosis of hypertension Primary hypertension (CMS/HCC)- Primary Unspecified essential hypertension Trigeminal neuralgia (CMS/HCC) Trigeminal neuralgia Hypothyroidism, unspecified type (CMS/HCC) Intractable episodic cluster headache Primary hypertension (CMS/HCC)- Primary Unspecified essential hypertension Hypothyroidism, unspecified type (CMS/HCC) Trigeminal neuralgia (CMS/HCC) Trigeminal neuralgia Intractable episodic cluster headache Hypothyroidism, unspecified type (CMS/HCC)- Primary Primary hypertension (CMS/HCC) Unspecified essential hypertension Bilateral foot pain Fungal nail infection Screening for colon cancer Special screening for malignant neoplasms, colon Intractable episodic cluster headache Metatarsal deformity, left- Primary Metatarsal deformity, right Verruca plantaris Plantar wart Foot pain, left Pain in soft tissues of limb Foot pain, right Pain in soft tissues of limb [facility] Diagnosis Hypothyroidism, unspecified type (CMS/HCC) Primary hypertension (CMS/HCC) Unspecified essential hypertension [facility] Diagnosis URTI (acute upper respiratory infection)- Primary Acute upper respiratory infections of unspecified site Hypothyroidism, unspecified type (CMS/HCC) Encounter for screening colonoscopy Tobacco dependency Tobacco use disorder Trigeminal neuralgia (CMS/HCC) Trigeminal neuralgia Tobacco use Wellness examination Trigeminal neuralgia (CMS/HCC)- Primary Trigeminal neuralgia Hypothyroidism, unspecified type (CMS/HCC) Elevated blood pressure reading in office without diagnosis of hypertension Primary hypertension (CMS/HCC)- Primary Unspecified essential hypertension Trigeminal neuralgia (CMS/HCC) Trigeminal neuralgia Hypothyroidism, unspecified type (CMS/HCC) Intractable episodic cluster headache Primary hypertension (CMS/HCC)- Primary Unspecified essential hypertension Hypothyroidism, unspecified type (CMS/HCC) Trigeminal neuralgia (CMS/HCC) Trigeminal neuralgia Intractable episodic cluster headache Hypothyroidism, unspecified type (CMS/HCC)- Primary Primary hypertension (CMS/HCC) Unspecified essential hypertension Bilateral foot pain Fungal nail infection Screening for colon cancer Special screening for malignant neoplasms, colon Intractable episodic cluster headache Hypothyroidism, unspecified type (CMS/HCC)- Primary [facility] Diagnosis URTI (acute upper respiratory infection)- Primary Acute upper respiratory infections of unspecified site Hypothyroidism, unspecified type (CMS/HCC) Encounter for screening colonoscopy Tobacco dependency Tobacco use disorder Trigeminal neuralgia (CMS/HCC) Trigeminal neuralgia Tobacco use Wellness examination Trigeminal neuralgia (CMS/HCC)- Primary Trigeminal neuralgia Hypothyroidism, unspecified type (CMS/HCC) Elevated blood pressure reading in office without diagnosis of hypertension Primary hypertension (CMS/HCC)- Primary Unspecified essential hypertension Trigeminal neuralgia (CMS/HCC) Trigeminal neuralgia Hypothyroidism, unspecified type (CMS/HCC) Intractable episodic cluster headache Primary hypertension (CMS/HCC)- Primary Unspecified essential hypertension Hypothyroidism, unspecified type (CMS/HCC) Trigeminal neuralgia (CMS/HCC) Trigeminal neuralgia Intractable episodic cluster headache Hypothyroidism, unspecified type (CMS/HCC)- Primary Primary hypertension (CMS/HCC) Unspecified essential hypertension Bilateral foot pain Fungal nail infection Screening for colon cancer Special screening for malignant neoplasms, colon Intractable episodic cluster headache Metatarsal deformity, left- Primary Metatarsal deformity, right Verruca plantaris Plantar wart Foot pain, left Pain in soft tissues of limb Foot pain, right Pain in soft tissues of limb [facility] Diagnosis URTI (acute upper respiratory infection)- Primary Acute upper respiratory infections of unspecified site Hypothyroidism, unspecified type (CMS/HCC) Encounter for screening colonoscopy Tobacco dependency Tobacco use disorder Trigeminal neuralgia (CMS/HCC) Trigeminal neuralgia Tobacco use Wellness examination Trigeminal neuralgia (CMS/HCC)- Primary Trigeminal neuralgia Hypothyroidism, unspecified type (CMS/HCC) Elevated blood pressure reading in office without diagnosis of hypertension Primary hypertension (CMS/HCC)- Primary Unspecified essential hypertension Trigeminal neuralgia (CMS/HCC) Trigeminal neuralgia Hypothyroidism, unspecified type (CMS/HCC) Intractable episodic cluster headache Primary hypertension (CMS/HCC)- Primary Unspecified essential hypertension Hypothyroidism, unspecified type (CMS/HCC) Trigeminal neuralgia (CMS/HCC) Trigeminal neuralgia Intractable episodic cluster headache Hypothyroidism, unspecified type (CMS/HCC)- Primary Primary hypertension (CMS/HCC) Unspecified essential hypertension Bilateral foot pain Fungal nail infection Screening for colon cancer Special screening for malignant neoplasms, colon Intractable episodic cluster headache Metatarsal deformity, left- Primary Verruca plantaris Plantar wart Foot pain, left Pain in soft tissues of limb Foot pain, right Pain in soft tissues of limb Metatarsal deformity, right Pain due to onychomycosis of toenails of both feet documented [facility] encounter [facility]* Diagnosis URTI (acute upper respiratory infection)- Primary Acute upper respiratory infections of unspecified site Hypothyroidism, unspecified type (CMS/HCC) Encounter for screening colonoscopy Tobacco dependency Tobacco use disorder Trigeminal neuralgia (CMS/HCC) Trigeminal neuralgia Tobacco use Wellness examination Trigeminal neuralgia (CMS/HCC)- Primary Trigeminal neuralgia Hypothyroidism, unspecified type (CMS/HCC) Elevated blood pressure reading in office without diagnosis of hypertension Primary hypertension (CMS/HCC)- Primary Unspecified essential hypertension Trigeminal neuralgia (CMS/HCC) Trigeminal neuralgia Hypothyroidism, unspecified type (CMS/HCC) Intractable episodic cluster headache Primary hypertension (CMS/HCC)- Primary Unspecified essential hypertension Hypothyroidism, unspecified type (CMS/HCC) Trigeminal neuralgia (CMS/HCC) Trigeminal neuralgia Intractable episodic cluster headache Hypothyroidism, unspecified type (CMS/HCC)- Primary Primary hypertension (CMS/HCC) Unspecified essential hypertension Bilateral foot pain Fungal nail infection Screening for colon cancer Special screening for malignant neoplasms, colon Intractable episodic cluster headache Acute non-recurrent maxillary sinusitis- Primary Primary hypertension (CMS/HCC) Unspecified essential hypertension Hypothyroidism, unspecified type (CMS/HCC) Over weight Overweight Murmur Undiagnosed cardiac murmurs [facility]* Diagnosis URTI (acute upper respiratory infection)- Primary Acute upper respiratory infections of unspecified site Hypothyroidism, unspecified type (CMS/HCC) Encounter for screening colonoscopy Tobacco dependency Tobacco use disorder Trigeminal neuralgia (CMS/HCC) Trigeminal neuralgia Tobacco use Wellness examination Trigeminal neuralgia (CMS/HCC)- Primary Trigeminal neuralgia Hypothyroidism, unspecified type (CMS/HCC) Elevated blood pressure reading in office without diagnosis of hypertension Primary hypertension (CMS/HCC)- Primary Unspecified essential hypertension Trigeminal neuralgia (CMS/HCC) Trigeminal neuralgia Hypothyroidism, unspecified type (CMS/HCC) Intractable episodic cluster headache Primary hypertension (CMS/HCC)- Primary Unspecified essential hypertension Hypothyroidism, unspecified type (CMS/HCC) Trigeminal neuralgia (CMS/HCC) Trigeminal neuralgia Intractable episodic cluster headache Hypothyroidism, unspecified type (CMS/HCC)- Primary Primary hypertension (CMS/HCC) Unspecified essential hypertension Bilateral foot pain Fungal nail infection Screening for colon cancer Special screening for malignant neoplasms, colon Intractable episodic cluster headache Acute non-recurrent maxillary sinusitis- Primary Primary hypertension (CMS/HCC) Unspecified essential hypertension Hypothyroidism, unspecified type (CMS/HCC) Over weight Overweight Murmur Undiagnosed cardiac murmurs History of CVA (cerebrovascular accident) without residual deficits- Primary Transient ischemic attack (TIA), and cerebral infarction without residual deficits Hypothyroidism, unspecified type (CMS/HCC) Intractable episodic cluster headache Verruca plantaris- Primary Plantar wart Foot pain, left Pain in soft tissues of limb Foot pain, right Pain in soft tissues of limb [facility] Diagnosis URTI (acute upper respiratory infection)- Primary Acute upper respiratory infections of unspecified site Hypothyroidism, unspecified type (CMS/HCC) Encounter for screening colonoscopy Tobacco dependency Tobacco use disorder Trigeminal neuralgia (CMS/HCC) Trigeminal neuralgia Tobacco use Wellness examination Trigeminal neuralgia (CMS/HCC)- Primary Trigeminal neuralgia Hypothyroidism, unspecified type (CMS/HCC) Elevated blood pressure reading in office without diagnosis of hypertension Primary hypertension (CMS/HCC)- Primary Unspecified essential hypertension Trigeminal neuralgia (CMS/HCC) Trigeminal neuralgia Hypothyroidism, unspecified type (CMS/HCC) Intractable episodic cluster headache Primary hypertension (CMS/HCC)- Primary Unspecified essential hypertension Hypothyroidism, unspecified type (CMS/HCC) Trigeminal neuralgia (CMS/HCC) Trigeminal neuralgia Intractable episodic cluster headache Hypothyroidism, unspecified type (CMS/HCC)- Primary Primary hypertension (CMS/HCC) Unspecified essential hypertension Bilateral foot pain Fungal nail infection Screening for colon cancer Special screening for malignant neoplasms, colon Intractable episodic cluster headache Acute non-recurrent maxillary sinusitis- Primary Primary hypertension (CMS/HCC) Unspecified essential hypertension Hypothyroidism, unspecified type (CMS/HCC) Over weight Overweight Murmur Undiagnosed cardiac murmurs History of CVA (cerebrovascular accident) without residual deficits- Primary Transient ischemic attack (TIA), and cerebral infarction without residual deficits Hypothyroidism, unspecified type (CMS/HCC) Intractable episodic cluster headache Trigeminal neuralgia (CMS/HCC)- Primary Trigeminal neuralgia Intractable episodic cluster headache Primary hypertension (CMS/HCC) Unspecified essential hypertension Tobacco use [facility] Diagnosis URTI (acute upper respiratory infection)- Primary Acute upper respiratory infections of unspecified site Hypothyroidism, unspecified type (CMS/HCC) Encounter for screening colonoscopy Tobacco dependency Tobacco use disorder Trigeminal neuralgia (CMS/HCC) Trigeminal neuralgia Tobacco use Wellness examination Trigeminal neuralgia (CMS/HCC)- Primary Trigeminal neuralgia Hypothyroidism, unspecified type (CMS/HCC) Elevated blood pressure reading in office without diagnosis of hypertension Primary hypertension (CMS/HCC)- Primary Unspecified essential hypertension Trigeminal neuralgia (CMS/HCC) Trigeminal neuralgia Hypothyroidism, unspecified type (CMS/HCC) Intractable episodic cluster headache Primary hypertension (CMS/HCC)- Primary Unspecified essential hypertension Hypothyroidism, unspecified type (CMS/HCC) Trigeminal neuralgia (CMS/HCC) Trigeminal neuralgia Intractable episodic cluster headache Hypothyroidism, unspecified type (CMS/HCC)- Primary Primary hypertension (CMS/HCC) Unspecified essential hypertension Bilateral foot pain Fungal nail infection Screening for colon cancer Special screening for malignant neoplasms, colon Intractable episodic cluster headache Acute non-recurrent maxillary sinusitis- Primary Primary hypertension (CMS/HCC) Unspecified essential hypertension Hypothyroidism, unspecified type (CMS/HCC) Over weight Overweight Murmur Undiagnosed cardiac murmurs History of CVA (cerebrovascular accident) without residual deficits- Primary Transient ischemic attack (TIA), and cerebral infarction without residual deficits Hypothyroidism, unspecified type (CMS/HCC) Intractable episodic cluster headache Trigeminal neuralgia (CMS/HCC)- Primary Trigeminal neuralgia Intractable episodic cluster headache Primary hypertension (CMS/HCC) Unspecified essential hypertension Tobacco use Hypothyroidism, unspecified type (CMS/HCC)- Primary [facility] Diagnosis URTI (acute upper respiratory infection)- Primary Acute upper respiratory infections of unspecified site Hypothyroidism, unspecified type (CMS/HCC) Encounter for screening colonoscopy Tobacco dependency Tobacco use disorder Trigeminal neuralgia (CMS/HCC) Trigeminal neuralgia Tobacco use Wellness examination Trigeminal neuralgia (CMS/HCC)- Primary Trigeminal neuralgia Hypothyroidism, unspecified type (CMS/HCC) Elevated blood pressure reading in office without diagnosis of hypertension Primary hypertension (CMS/HCC)- Primary Unspecified essential hypertension Trigeminal neuralgia (CMS/HCC) Trigeminal neuralgia Hypothyroidism, unspecified type (CMS/HCC) Intractable episodic cluster headache Primary hypertension (CMS/HCC)- Primary Unspecified essential hypertension Hypothyroidism, unspecified type (CMS/HCC) Trigeminal neuralgia (CMS/HCC) Trigeminal neuralgia Intractable episodic cluster headache Hypothyroidism, unspecified type (CMS/HCC)- Primary Primary hypertension (CMS/HCC) Unspecified essential hypertension Bilateral foot pain Fungal nail infection Screening for colon cancer Special screening for malignant neoplasms, colon Intractable episodic cluster headache Acute non-recurrent maxillary sinusitis- Primary Primary hypertension (CMS/HCC) Unspecified essential hypertension Hypothyroidism, unspecified type (CMS/HCC) Over weight Overweight Murmur Undiagnosed cardiac murmurs History of CVA (cerebrovascular accident) without residual deficits- Primary Transient ischemic attack (TIA), and cerebral infarction without residual deficits Hypothyroidism, unspecified type (CMS/HCC) Intractable episodic cluster headache Trigeminal neuralgia (CMS/HCC)- Primary Trigeminal neuralgia Intractable episodic cluster headache Primary hypertension (CMS/HCC) Unspecified essential hypertension Tobacco use Trigeminal neuralgia (CMS/HCC)- Primary Trigeminal neuralgia Cigarette nicotine dependence without complication Over weight Overweight Intractable episodic cluster headache Anxiety and depression (CMS/HCC) documented in this encounter [facility] N[facility]* Pablo Lmab, EAN - 05/22/2024 3:50 PM EST Patient: Werner Ospina : 1970 PCP: Paul Birch MD SUBJECTIVE Patient presents today for follow up of skin lesion/neoplasm of unknown origin to the right and left foot Pt states that previous treatment of acid tx with some improvement Pt rates pain the pain on a 1-10 scale an intensity of for Pt presents today for followup. Patient also has history of generalized foot pain with hammertoe deformities 2 through 5 bilaterally Patient states he has been wearing orthotics with great improvement to foot pain. Patient presents today with a CC of elongated, thick nails. Pt states nails have been elongated and thick for many years and cause pain with ambulation in shoegear. Pt has tried previous treatment with minimal relief. Pt presents today for nail care and treatment. Allergies: Allergies Allergen Reactions Egg-Derived Products Hives Past Medical History: Past Medical History: Diagnosis Date Allergies Anxiety and depression ([facility]) Arthritis Headache, migraine ([facility]) History of degenerative disc disease Hyperthyroidism ([facility]) Left inguinal hernia Trigeminal neuralgia of right side of face ([facility]) Medications: Current Outpatient Medications: levothyroxine (Synthroid, Levoxyl) 175 MCG tablet, Take 1 tablet (175 mcg) by mouth Daily, Disp: 30tablet, Rfl: 11 verapamil (Calan) 80 MG tablet, Take 1 tablet (80 mg) by mouth Daily, Disp: 90 tablet, Rfl: 1 Social History: Social History Socioeconomic History Marital status: Spouse name: Not on file Number of children: Not on file Years of education: Not on file Highest education level: Not on file Occupational History Not on file Tobacco Use Smoking status: Every Day Current packs/day: 0.50 Types: Cigarettes Passive exposure: Never Smokeless tobacco: Never Vaping Use Vaping status: Never Used Substance and Sexual Activity Alcohol use: Never Comment: caffeine: 2-3 cups per day Drug use: Never Sexual activity: Defer Other Topics Concern Not on file Social History Narrative Not on file Social Drivers of Health Financial Resource Strain: Not on file Food Insecurity: Not on file Transportation Needs: Not on file Physical Activity: Not on file Stress: Not on file Social Connections: Not on file Intimate Partner Violence: Not on file Housing Stability: Not on file ROS: General: denies fever, chills, fatigue, malaise Gastrointestinal: denies abdominal pain, ulcers, or changes in appetite or bowel habits Musculoskeletal: Positive history of generalized arthritis, denies loss of strength, pain to hip, knees, back Cardiovascular: denies CP, palpitations, irregular rhythms. Positive history of transient TIA in the past OBJECTIVE LE EXAM: DERM: Elongated thick yellow crumbly nails digits 1 through 10. Positive hair growth b/l feet. Rubor to 2 through 5 digits bilaterally PIPJ regions Nummular lesion measuring at the left and right sub 4th metatarsal region measuring 0.3 cm x 0.2 cm. VASC: Positive palpable pedal pulses bilaterally NEURO: Gross sensation intact to bilateral feet ORTHO: Positive pain on palpation to nails 1 through 10 Positive pain on palpation to bilateral foot lesions Flexion deformities 2 through 5 metatarsals bilaterally as well as 2 through 5 digits bilaterally with pes cavus foot type and plantar flexed metatarsals 2 through 5 bilateral Minimal pain on palpation to plantar metatarsal heads bilaterally ASSESSMENT 1. Metatarsal deformity, left 2. Verruca plantaris 3. Foot pain, left 4. Foot pain, right 5. Metatarsal deformity, right 6. Pain due to onychomycosis of toenails of both feet PLAN Pt to take nsaids as needed PRN pain Pt to continue with custom orthotics daily in shoe gear. Application of salinocaine acid medication to lesion/lesions located at right foot Informed pt of risks and benefits of procedure including high reoccurence rate, infection, pain andconsent given. Application of DSD post procedure. Application of salinocaine acid medication to lesion/lesions located at left foot Informed pt of risks and benefits of procedure including high reoccurence rate, infection, pain andconsent given. Application of DSD post procedure. Patient to continue with oral anti - inflammatories as needed for pain and recommended OTC medications such as tylenol or Ibuprofen Discussed possible surgical excision lesions in future if no improvement Discussed proper foot care with patient today. Debride nails in length and thickness digits 1 through 10 Pablo Lamb DPM [facility] Dis[facility] instructions No data available for this section General Surgery [place] Progress note No data available for this section General Surgery [place] Summary Purpose Family History No Family History Records FoundNo Family History Records Found No data available for this section No data available for this section No data available for this section No Family History Records FoundNo Family History Records FoundNo Family History Records [...] DATE CREATED AUTHOR AUTHOR'S ORGANIZ ATION 12/18/2022 [facility] DATE CREATED AUTHOR AUTHOR'S ORGANIZ ATION 09/09/2023 [facility] DATE CREATED AUTHOR AUTHOR'S ORGANIZ ATION 03/15/2024 [facility] DATE CREATED AUTHOR AUTHOR'S ORGANIZ ATION 07/05/2024 [facility] dical Specialists EPIC Patient Care team informatio n (unrecognized section and content) Export Clerk Relationship Specialty Start Date End Date Shaikh Ennis MD [address] [place] [address] PCP - General 07/05/23 Export Clerk Relationship Specialty Start Date End Date Shaikh Ennis MD [address] [place] [address] PCP - General 07/05/23 Export Clerk Relationship Specialty Start Date End Date Paul Birch MD [address] [place] [phone] PCP - General Family Medicine 03/04/24 Evelyn Jenkins NP [address] [place] [address] Nurse Practitioner Family Medicine 03/04/24 Export Clerk Relationship Specialty Start Date End Date Paul Birch MD [address] [place] [address] PCP - General Family Medicine 03/04/24 Evelyn Jenkins NP [address] [place] [address] Nurse Practitioner Family Medicine 03/04/24 Export Clerk Relationship Specialty Start Date End Date Shaikh Ennis MD [address] [place] [address] PCP - General 07/05/23 Export Clerk Relationship Specialty Start Date End Date Paul Birch MD [address] [place] [phone] PCP - General Family Medicine 03/04/24 Evelyn Jenkins NP [address] [place] [address] Nurse Practitioner Family Medicine 03/04/24 Export Clerk Relationship Specialty Start Date End Date Paul Birch MD [address] [place] [address] PCP - General Family Medicine 03/04/24 Evelyn Jenkins NP [address] [place] [address] Nurse Practitioner Family Medicine 03/04/24 Export Clerk Relationship Specialty Start Date End Date Paul Birch MD [address] [place] [phone] PCP - General Family Medicine 03/04/24 Evelyn Jenkins NP [address] [place] [phone] Nurse Practitioner Family Medicine 03/04/24 Export Clerk Relationship Specialty Start Date End Date Paul Birch MD [address] [place] [phone] PCP - General Family Medicine 03/04/24 Evelyn Jenkins NP [address] [place] [address] Nurse Practitioner Family Medicine 03/04/24 Export Clerk Relationship Specialty Start Date End Date Paul Birch MD [address] [place] [phone] PCP - General Family Medicine 03/04/24 Evelyn Jenkins NP [address] [place] [address] Nurse Practitioner Family Medicine 03/04/24 Export Clerk Relationship Specialty Start Date End Date Shaikh Ennis MD [address] [place] [phone] PCP - General Internal Medicine 07/04/23 Export Clerk Relationship Specialty Start Date End Date Paul Birch MD [address] [place] [phone] PCP - General Family Medicine 03/04/24 Evelyn Jenkins NP [address] [place] [address] Nurse Practitioner Family Medicine 03/04/24 Export Clerk Relationship Specialty Start Date End Date Paul Birch MD [address] [place] [phone] PCP - General Family Medicine 03/04/24 Evelyn Jenkins NP [address] [place] [address] Nurse Practitioner Family Medicine 03/04/24 Export Clerk Relationship Specialty Start Date End Date Paul Birch MD [address] [place] [phone] PCP - General Family Medicine 03/04/24 Evelyn Jenkins NP [address] [place] [address] Nurse Practitioner Family Medicine 03/04/24 Export Clerk Relationship Specialty Start Date End Date Paul Birch MD [address] [place] [phone] PCP - General Family Medicine 03/04/24 Evelyn Jenkins NP [address] [place] [address] Nurse Practitioner Family Medicine 03/04/24 Export Clerk Relationship Specialty Start Date End Date Paul Birch MD [address] [place] [address] PCP - General Family Medicine 03/04/24 Evelyn Jenkins NP [address] [place] [address] Nurse Practitioner Family Medicine 03/04/24 Export Clerk Relationship Specialty Start Date End Date Paul Birch MD [address] [place] [address] PCP - General Family Medicine 03/04/24 Evelyn Jenkins NP [address] [place] [address] Nurse Practitioner Family Medicine 03/04/24 Export Clerk Relationship Specialty Start Date End Date Paul Birch MD [address] [place] [address] PCP - General Family Medicine 03/04/24 Evelyn Jenkins NP [address] [place] [address] Nurse Practitioner Family Medicine 03/04/24 Export Clerk Relationship Specialty Start Date End Date Paul Birch MD [address] [place] [address] PCP - General Family Medicine 03/04/24 Evelyn Jenkins NP [address] [place] [address] Nurse Practitioner Family Medicine 03/04/24 Export Clerk Relationship Specialty Start Date End Date Paul Birch MD [address] [place] [address] PCP - General Family Medicine 03/04/24 Evelyn Jenkins NP [address] [place] [address] Nurse Practitioner Family Medicine 03/04/24 Export Clerk Relationship Specialty Start Date End Date Paul Birch MD [address] [place] [phone] PCP - General Family Medicine 03/04/24 Evelyn Jenkins NP [address] [place] [address] Nurse Practitioner Family Medicine 03/04/24 Export Clerk Relationship Specialty Start Date End Date Paul Birch MD [address] [place] [phone] PCP - General Family Medicine 03/04/24 Evelyn Jenkins NP [address] [place] [address] Nurse Practitioner Family Medicine 03/04/24 Reason for Visit (unrecogniz ed section and content) Reason Comments Hypertension Hip Pain Reason Comments Foot Callouses B/L foot callous/ ar ch Specialty Diagnoses / Procedures Referred By Contac t Referred To Contact Podiatry Diagnoses Bilateral foot pain Fungal nail infection Procedures MT OFFICE/OUTPATIENT NEW HIGH MDM 60 MINUTES Evelyn Jenkins NP [address] [place] [address] Phone: tel: fax: Pablo Lamb DPM [address] [place] [address] Phone: tel: fax: Referral ID Status Reason Start Date Expiration Date V isits Requested Visits Authorized [id number] Closed Specialty Services Required 03/04/2024 08/31/2024 1 1 Reason Comments Follow-up 3wk lesion check Casting For Braces Or Orthotics Scanned for orthtoics Reason Onset Date Comments Med Refill 01/02/2024 Reason Comments Consent Or Instructions 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 [facility] [employer] provides no warranty or guarantee of the accuracy or completeness of information in this document.
[2024-07-17 09:15] LABS: Thyroid Stimulating Hormone 2.794 uIU/mL (0.358-3.740)
[2024-07-17 09:30] LABS: Free T4 1.18 ng/dL (0.76-1.46)
== END 2024-07-17 08:22 | disposition home or self-care (01) ==
LOC: LAB 08:22
PROVIDERS: PCP Nurse Practitioner; Visit Provider Nurse Practitioner
DX: E03.9 Hypothyroidism, unspecified (principal)
CPT/HCPCS: 36415; 84439; 84443